=== PATIENT | female | born 1935 | race Caucasian/White ===

== ENCOUNTER → 2020-10-05 11:02 | Outpatient (BNVA) | payer MEDICARE, OTHER, SELFPAY | PROVIDERS: Visit Provider Podiatrist Foot & Ankle Surgery | DX: M79.672 Pain in left foot (principal); M19.072 Primary osteoarthritis, left ankle and foot | CPT/HCPCS: 73630 ==

== ENCOUNTER 2022-01-22 09:57 | Emergency (ER) | payer MEDICARE, OTHER, SELFPAY ==
[2022-01-22 10:03] VITALS: BP 157/80; PULSE 73; RESP 14; TEMP 36.7; O2SAT 91; BMI 33.3
--- NOTE | 2022-01-22 10:12 | CTR_ITS ---
PROCEDURE INFORMATION: Exam: CT Head Without Contrast Exam date and time: 01/22/2022 10:23 AM Age: 86 years old Clinical indication: Injury or trauma; Fall; Blunt trauma (contusions or hematomas); Weakness, facial; Additional info: L side facial droop x 2 days TECHNIQUE: Imaging protocol: Computed tomography of the head without contrast. Radiation optimization: All CT scans at this facility use at least one of these dose optimization techniques: automated exposure control; mA and/or kV adjustment per patient size (includes targeted exams where dose is matched to clinical indication); or iterative reconstruction. COMPARISON: No relevant prior studies available. RADIATION DOSE METRICS: Total DLP (mGy-cm): 1040.83 FINDINGS: Brain: There is brain parenchymal atrophy, related to the patient's age. Moderate nonspecific white matter changes are seen. There are no intracranial masses, mass effect or midline shift. There is no cerebral edema. There is no subarachnoid hemorrhage. There are no intra-or extra-axial fluid collections, intraventricular or intraparenchymal hemorrhage. No definite areas of low attenuation or browne-white matter junction obscuration seen on the noncontrast CT to suggest a subacute stroke - although the underlying white matter changes limit assessment. Cerebral ventricles: The lateral, third and fourth ventricles appear unremarkable. The suprasellar and basilar cisterns appear unremarkable. Paranasal sinuses: The visualized sinuses are unremarkable. Mastoid air cells: The visualized mastoids are unremarkable. Orbital cavities: The visualized orbits are unremarkable. Bones/joints: No definite acute osseous or skull abnormalities seen. Soft tissues: Unremarkable. Notes: If there is further clinical concern for intracranial pathology, MRI of the brain may be performed for further assessment. CT/CT head wo con* [id number] IMPRESSION: No noncontrast CT evidence of acute posttraumatic intracranial abnormality. No noncontrast CT evidence of intracranial hemorrhage, masses or definite subacute stroke.
--- NOTE | 2022-01-22 10:12 | XR_ITS ---
WS: [id number] Portable AP upright chest, 01/22/2022 Clinical Data: dyspnea/cough Comparison: None. Findings: No nodules, masses or effusions are seen. The heart is normal. The pulmonary vascularity is not increased. No pneumonia or pneumothorax is seen. The aortic arch shows calcification and tortuos ity. There is a dextroscoliosis of the thoracic spine. There is an anterior cervical disc fusion. The re is an orthopedic anchor in the left humeral head. XR/XR chest 1V portable [id number] Impression: Atherosclerosis.
--- NOTE | 2022-01-22 10:12 | ECG_ITS ---
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 Measurements Intervals [place] Rate: 71 P: 21 NE: 218 QRS: -43 QRSD: 88 T: 68 QT: 380 QTc: 415 Interpretive Statements SINUS RHYTHM WITH FIRST DEGREE AV BLOCK WITH OCCASIONAL SUPRAVENTRICULAR PREMATURE COMPLEXES LEFT AXIS DEVIATION [QRS AXIS < -30] LOW QRS VOLTAGE IN PRECORDIAL LEADS [QRS DEFLECTION < 1.0 mV IN CHEST LEADS] S1-S2-S3 PATTERN, CONSISTENT WITH PULMONARY DISEASE, RVH, OR NORMAL VARIANT ANTEROSEPTAL MYOCARDIAL INFARCTION , OF INDETERMINATE AGE [40+ ms Q WAVE IN V1-V4] INTERPRETATION BASED ON A DEFAULT AGE OF 40 YEARS No previous ECG available for comparison Electronically Signed On 01-22-2022 14:59:33 DIGITAL COMMENTATOR by Jordi Latham M.D. [email or web address]
[2022-01-22 10:55] LABS: Basophils % 0.6 %; Eosinophils # 0.3 10^3/uL (0.0-0.8); Eosinophils % 5.8 %; Hematocrit 45.5 % (37.0-47.0); Lymphocytes # 1.4 10^3/uL (0.8-4.8); Lymphocytes % 28.2 %; Mean Corpuscular HGB Conc 30.8 g/dL (30.0-36.0); Mean Corpuscular Hemoglobin 28.1 pg (28.0-34.0); Mean Corpuscular Volume 91.2 fl (81-99); Mean Platelet Volume 9.9 fL (7.4-10.4); Monocytes # 0.6 10^3/uL (0.2-0.9); Monocytes % 12.2 %; Neutrophils # 2.64 10^3/uL (1.8-7.7); Neutrophils % 52.8 %; Nucleated Red Blood Cells % 0 %; Platelet Count 224 10^3/cmm (130-400); Red Blood Count 4.99 10^6/uL (4.1-5.3); Red Cell Distribution Width 13.2 % (12.1-15.1)
[2022-01-22 11:19] LABS: Alanine Aminotransferase 65 U/L (0-33); Albumin Level 4.2 g/dL (3.5-5.2); Alkaline Phosphatase 63 U/L (35-105); Aspartate Amino Transferase 40 U/L (0-32); Blood Urea Nitrogen 14 mg/dL (8-23); Calcium 9.8 mg/dL (8.5-10.5); Carbon Dioxide 28 mmol/L (22-29); Chloride 96 mmol/L (98-107); Globulin 2.8 g/dL (1.3-4.6); Glucose 237 mg/dL (65-115); Osmolality Calculated 286 mOsm/kg (285-295); Sodium 134 mmol/L (136-145); Total Bilirubin 0.5 mg/dL (0.15-1.2)
--- NOTE | 2022-01-22 11:41 | W.ED.NEUROSD ---
HPI - Neuro Symptoms/Deficit General: Chief Complaint: Neuro Symptoms/Deficit Stated Complaint: stroke like symptoms Time Seen by Provider: 01/22/22 10:11 Source: patient Mode of arrival: ambulatory History of Present Illness: 86-year-old female presents emergency room with left-sided facial droop tingling of her difficulty swallowing for the last 2 days she has no other deficits at all. She is awake and alert she did not have any otalgia at the onset of this. She not previously had issues like this before she has had no problems with balance or gait. Just the limited findings on her face as described above. She is able to swallow normally but she has dribbling out of the left corner of her mouth when she tries to swallow liquids. The anterior part of her tongue is lost sensation as well. Onset (ago): day(s) (2) Location: left face History of same: Yes Severity: mild Quality: weak Relieving factors: none Exacerbating factors: none Context: gradual onset Associated symptoms: Deny chest pain, cough, diaphoresis, fevers/chills, headache(s), anorexia, malaise, nausea, seizures, short of breath, syncope, tingling, vertigo, vomiting or weakness Review of Systems Const: Denies: malaise or diaphoresis ENMT: Denies: throat pain, ear or mastoid pain, nasal discharge or nasal congestion Card: Denies: chest pain or syncope Resp: Denies: dyspnea, productive cough or non-productive cough GI: Denies: abdominal pain, nausea or vomiting : Denies: flank pain, difficulty voiding, dysuria, urinary frequency or urinary urgency Skin/Breast: Denies: rash or pruritus Neuro: Denies: headache(s) or vertigo NIH stroke score NIHSS: Level Of Consciousness - 1a: 0 Level Of Consciousness Questions - 1b: Both Correct Level Of Consciousness Commands - 1c: Both Correct Best Gaze - 2: Normal Visual Amaya - 3: No Visual Loss Facial Palsy - 4: Partial Paralysis Motor Arm Right - 5: No Drift Motor Arm Left - 5: No Drift Motor Leg Right - 6: No Drift Motor Leg Left - 6: No Drift Limb Ataxia - 7: Absent Sensory - 8: Normal Best Language - 9: No Aphasia Dysarthia - 10: Normal Extinction And Inattention - 11: 0 Score: Total Score: 2 Physical Exam Const: COMMON NORMALS: no acute distress GENERAL APPEARANCE: cooperative and comfortable ORIENTATION/CONSCIOUSNESS: Yes awake, Yes oriented to person, Yes oriented to place and Yes oriented to time HENMT: COMMON NORMALS: normocephalic, atraumatic, hearing grossly normal bilaterally, external ears normal, EAC's normal, TM's normal bilaterally, Normal nasal mucous membranes and turbinates present, moist oral mucous membranes and oropharynx normal HEAD & SCALP: normocephalic and atraumatic NOSE: Normal nasal mucous membranes and turbinates present EXTERNAL EAR: Yes external ears normal EXTERNAL AUDITORY CANAL: EAC's normal TYMPANIC MEMBRANE: TM's normal bilaterally Eye: COMMON NORMALS: Equal, round and reactive pupils present, EOMs intact bilaterally, conjunctivae normal and no scleral icterus CONJUNCTIVA: Yes conjunctivae normal PUPIL: Yes Equal, round and reactive pupils present Neck/C-Spine: COMMON NORMALS: full ROM, no lymphadenopathy, supple and no JVD Resp: COMMON NORMALS: normal respiratory effort, No retractions, No use of accessory muscles and clear to auscultation bilaterally AUSCULTATION: clear to auscultation bilaterally Cardio: COMMON NORMALS: no JVD, regular rate, regular rhythm and No murmurs present (Cardio) RATE: regular rate RHYTHM: regular rhythm GI: COMMON NORMALS: Soft to palpation and No hepatosplenomegaly present AUSCULTATION: Yes normoactive bowel sounds PALPATION: Yes Soft to palpation, No Tenderness to palpation present (GI), No Guarding due to palpation present (GI) and Yes No hepatosplenomegaly present Extremity: COMMON NORMALS: normal to inspection, capillary refill normal, no clubbing, cyanosis or edema, no calf tenderness and no pedal edema Neuro: SENSORIUM/ORIENTATION: Yes oriented to person, Yes oriented to place and Yes oriented to time Skin: COMMON NORMALS: no rashes or lesions noted GENERAL SKIN EXAM: no rashes or lesions noted Course Vital Signs: Vital signs: Vital Signs Temperature 98.1 F 01/22/22 12:17 Pulse Rate 73 01/22/22 12:17 Respiratory Rate 14 01/22/22 12:17 Blood Pressure 157/80 01/22/22 12:17 Pulse Oximetry 91 01/22/22 12:17 Oxygen Delivery Me thod 01/22/22 10:03 MDM - Neuro Symptoms/Deficit Medical Decision Making Patient had fall and hit her head she is on anticoagulants CT of head is negative. 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 Medical Records I reviewed the patient's medical records. Lab Data I reviewed the patient's lab results. 01/22/22 10:40 01/22/22 10:40 Radiology Impressions Chest X-Ray 01/22/22 10:12 Impression: Atherosclerosis. Head CT 01/22/22 10:12 IMPRESSION: No noncontrast CT evidence of acute posttraumatic intracranial abnormality. No noncontrast CT evidence of intracranial hemorrhage, masses or definite subacute stroke. Laboratory Results WBC 5.0 10^3/uL (4.0-10.0) 01/22/22 10:40 RBC 4.99 10^6/uL (4.1-5.3) 01/22/22 10:40 Hgb 14.0 g/dL (11.5-15.3) 01/22/22 10:40 Hct 45.5 % (37.0-47.0) 01/22/22 10:40 MCV 91.2 fl (81-99) 01/22/22 10:40 MCH 28.1 pg (28.0-34.0) 01/22/22 10:40 MCHC 30.8 g/dL (30.0-36.0) 01/22/22 10:40 RDW 13.2 % (12.1-15.1) 01/22/22 10:40 Plt Count 224 10^3/cmm (130-400) 01/22/22 10:40 MPV 9.9 fL (7.4-10.4) 01/22/22 10:40 Neut % (Auto) 52.8 % 01/22/22 10:40 Lymph % (Auto) 28.2 % 01/22/22 10:40 [place] % (Auto) 12.2 % 01/22/22 10:40 Eos % (Auto) 5.8 % 01/22/22 10:40 Baso % (Auto) 0.6 % 01/22/22 10:40 Neut # (Auto) 2.64 10^3/uL (1.8-7.7) 01/22/22 10:40 Lymph # (Auto) 1.4 10^3/uL (0.8-4.8) 01/22/22 10:40 [place] # (Auto) 0.6 10^3/uL (0.2-0.9) 01/22/22 10:40 Eos # (Auto) 0.3 10^3/uL (0.0-0.8) 01/22/22 10:40 Baso # (Auto) 0.0 10^3/uL (0.0-0.1) 01/22/22 10:40 Nucleated RBC % (auto) 0 % 01/22/22 10:40 Nucleated RBCs # 0.0 /100WBC 01/22/22 10:40 Sodium 134 mmol/L (136-145) L 01/22/22 10:40 Potassium 4.0 mmol/L (3.5-5.1) 01/22/22 10:40 Chloride 96 mmol/L (98-107) L 01/22/22 10:40 Carbon Dioxide 28 mmol/L (22-29) 01/22/22 10:40 Anion Gap 14.0 (5-19) 01/22/22 10:40 BUN 14 mg/dL (8-23) 01/22/22 10:40 Creatinine 0.5 mg/dL (0.5-0.9) 01/22/22 10:40 GFR Calculation Not Reportable 01/22/22 10:40 Glucose 237 mg/dL (65-115) H 01/22/22 10:40 Calculated Osmolality 286 mOsm/kg (285-295) 01/22/22 10:40 Calcium 9.8 mg/dL (8.5-10.5) 01/22/22 10:40 Total Bilirubin 0.5 mg/dL (0.15-1.2) 01/22/22 10:40 AST 40 U/L (0-32) H 01/22/22 10:40 ALT 65 U/L (0-33) H 01/22/22 10:40 Alkaline Phosphatase 63 U/L (35-105) 01/22/22 10:40 Total Protein 7.0 g/dL (6.6-8.7) 01/22/22 10:40 Albumin 4.2 g/dL (3.5-5.2) 01/22/22 10:40 Globulin 2.8 g/dL (1.3-4.6) 01/22/22 10:40 Discharge Plan Discharge Patient Disposition: Home Clinical Impression: Roy's palsy Condition: Stable Prescriptions: New prednisone 50 mg tablet 50 mg PO DAILY 7 Days Qty: 7 0RF No Action (DME) spectrum afo with lateral T strap See Rx Instructions .ROUTE .MEDSUPPLY Qty: 1 0RF Rx Instructions: As directed by ALBA&O atorvastatin 20 mg tablet 20 mg PO DAILY citalopram 20 mg tablet 20 mg PO DAILY fenofibrate 160 mg tablet 160 mg PO DAILY losartan 25 mg tablet 25 mg PO DAILY Pradaxa 110 mg capsule 110 mg PO BID tramadol 50 mg tablet 50 mg PO Q6H PRN (Reason: Pain) carvedilol 3.125 mg tablet 3.125 mg PO BID Rx Instructions: must administer with a meal/food trazodone 50 mg tablet 50 mg PO BEDTIME ropinirole 0.25 mg tablet 0.25 mg PO BEDTIME Discharge Orders: Discharge ED (Routine); Ordered 01/22/22 Ordered By: Zaki Story Referrals: Susie Ford FNP [Primary Care Provider] - Discharge Diet: Usual diet Discharge Activity: Increase activity as tolerated Patient Instructions: Roy Palsy (ED), Opioid Safety, Pain Management Activity Restrictions/Additional Instructions: You were seen today for Roy's palsy which is an irritation of the facial nerve. Most often this eventually resolves completely. We started you on prednisone 50 mg daily for 1 week this will sometimes improve the rate of resolution. If you have any worsening or change symptoms recheck with your primary care doctor. Coding Level of Care Code ED Supervisor [employer] for Darrell Zavaleta
[2022-01-22 12:17] VITALS: BP 157/80; PULSE 73; RESP 14; TEMP 36.7; O2SAT 91
== END 2022-01-22 12:15 | disposition home or self-care (01) ==
PROVIDERS: Emergency Provider Family Medicine; PCP Nurse Practitioner Family
DX: G51.0 Bell's palsy (principal)
CPT/HCPCS: 70450; 71045; 80053; 85025; 93005; 99285

== ENCOUNTER 2022-02-13 08:57 | Emergency (ER) | payer MEDICARE, OTHER, SELFPAY ==
[2022-02-13 09:08] VITALS: BP 157/81; PULSE 77; RESP 16; TEMP 36.9; O2SAT 92
--- NOTE | 2022-02-13 11:17 | XR_ITS ---
WS: [id number] Right shoulder, 3 views, 02/13/2022 Clinical Data: fall/pain Comparison: None. Findings: No fractures or dislocations are seen. The AC joint shows mild osteoarthritis. The adjacent right cla vicle, right scapula and ribs are normal. The soft tissues are unremarkable. There is an anterior cervical disc fusion. There are calcifications in the region of the carotid bifu rcations. 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
--- NOTE | 2022-02-13 11:17 | XR_ITS ---
WS: [id number] Right hip, 2 views, AP pelvis, 02/13/2022 Clinical Data: fall, pain; one view pelvis too please Comparison: None. Findings: No fractures or dislocations are seen. The right hip shows mild osteoarthritic change with narrowing and an acetabular lip. The soft tissues are not remarkable. The adjacent pelvis is normal. The left hip is normal. XR/XR hip RT 2-3V wo/w pel* [id number] Impression: 1. Negative for right hip fracture. 2. Mild osteoarthritis of right hip. 3. Negative pelvis.
--- NOTE | 2022-02-13 11:17 | W.ED.GENADLT ---
Documented by User: MARCOS Higgins 02/13/22 13:49 HPI - General Adult General: Chief complaint: General Medical Stated complaint: fall on , pain throughout body Time Seen by Provider: 02/13/22 10:48 Source: patient and family Mode of arrival: wheelchair Limitations: no limitations History of Present Illness: Patient is an 86-year-old female who presents to ED today for evaluation of right shoulder pain, right hip pain, left-sided neck pain. Patient states symptoms have been present following a fall that occurred roughly 01/26. She states she was reaching for an object while lying in bed and accidentally rolled out onto her right side. She states since then she has had limited range of motion of her right shoulder and right hip pain. She is able to ambulate with the help of a walker which she normally uses. Patient tells me at some point following the fall she developed a left-sided Roy's palsy. She was seen here at our facility for that. She had a CT head performed that was negative. Patient states she was placed on steroids and this is helped her symptoms quite a bit . She still has some mild left-sided mouth drooping. Patient states she is having pain in the left side of her neck. She denies any midline/cervical/bony tenderness. Patient maintains full range of motion of her neck. She denies a headache. Onset (ago): week(s) Location: neck, upper extremity and lower extremity Radiation: non-radiation Pain Consistency: constant Relieving factors: none Exacerbating factors: movement Associated symptoms: Reports no associated symptoms; Deny chest pain, confusion, dyspnea, headache(s), malaise, nausea, rash, palpitations, syncope or vomiting Treatments prior to arrival: none Review of Systems Const: Denies: fever(s), chills, body aches, fatigue or malaise Eyes: Denies: change in vision, blurry vision, blind spots, photophobia, floaters or seeing flashes Card: Denies: chest pain, palpitations, irregular heart rhythm, edema, lightheadedness, syncope or pre-syncope Resp: Denies: dyspnea GI: Denies: abdominal pain, nausea or vomiting Musc: Reports: neck pain, joint pain and limited range of motion; Denies: back pain, extremity pain, extremity swelling, joint swelling, joint redness or joint warmth Skin/Breast: Denies: rash Neuro: Denies: headache(s), numbness in extremities, weakness in extremities, sensory changes, lack of coordination, frequent falls, dizziness, vertigo, confusion, behavioral changes, difficulty communicating thoughts or seizure-like activity Physical Exam Const: COMMON NORMALS: no acute distress, patient oriented x3, no limitations, alert and well nourished GENERAL APPEARANCE: cooperative ORIENTATION/CONSCIOUSNESS: Yes awake, Yes oriented to person, Yes oriented to place and Yes oriented to time HENMT: COMMON NORMALS: normocephalic, atraumatic, hearing grossly normal bilaterally, external ears normal, EAC's normal and TM's normal bilaterally HEAD & SCALP: normal to inspection, normocephalic and atraumatic EXTERNAL EAR: Yes external ears normal EXTERNAL AUDITORY CANAL: EAC's normal TYMPANIC MEMBRANE: TM's normal bilaterally Eye: COMMON NORMALS: Equal, round and reactive pupils present and EOMs intact bilaterally GENERAL EYE: appearance normal, both eyes and all related structures and normal light reflex ALIGNMENT: Yes alignment normal PUPIL: Yes Equal, round and reactive pupils present DIRECT OPHTHALMOSCOPY: Yes normal light reflex Neck/C-Spine: COMMON NORMALS: full ROM, no lymphadenopathy, supple, no meningeal signs, no JVD, Thyroid normal and No carotid bruits GENERAL: Yes normal visual inspection THYROID: Thyroid normal CERVICAL SPINE: Yes cervical ROM normal, No Cervical spine tenderness and No Paracervical muscle tenderness Resp: COMMON NORMALS: normal respiratory effort and clear to auscultation bilaterally AUSCULTATION: clear to auscultation bilaterally Cardio: COMMON NORMALS: no JVD, regular rate and regular rhythm RATE: regular rate RHYTHM: regular rhythm Back/Pelvis: COMMON NORMALS: thoracic and lumbar spine normal to inspection, no thoracic nor lumbar tenderness, thoraco-lumbar ROM normal and straight leg raise negative bilaterally PELVIS: Yes buttocks normal SACROILIAC JOINTS: Yes SI joint(s) abnormal (TTP to R) SACRUM: no tenderness COCCYX: no tenderness Extremity: COMMON NORMALS: capillary refill normal, no joint enlargement, no clubbing, cyanosis or edema, no calf tenderness and no pedal edema GENERAL: Yes normal exam except as noted RIGHT UPPER EXTREMITY: Yes shoulder joint (patient can flex/abduct shoulder to about 90 deg; full passive ROM) Right shoulder: Yes Right shoulder joint neurovascular exam (normal) RIGHT LOWER EXTREMITY: Yes hip joint (TTP anteriolateral R hip; femoral pulses normal; full passive ROM) Right hip: Yes ROM (pain with active flexion; normal IR/ER ) and Yes neurovascular exam (normal) Neuro: ZITA COMA SCALE: document GCS findings [place] coma scale eye opening: Spontaneous [place] coma scale verbal response: Orientated Zita coma scale motor response: Obey commands [place] coma scale total score: 15 COMMON NORMALS: patient oriented x3 SENSORIUM/ORIENTATION: Yes alert, Yes oriented to person, Yes oriented to place and Yes oriented to time MENINGEAL SIGNS: Yes no meningeal signs CRANIAL NERVES: Yes CN normal except as noted and Yes CN VII (facial) Laterality: left (states most of her symptoms have resolved/improved since last visit) CN VII left: asymmetrical smile COORDINATION/BALANCE: [id number] test normal MOTOR EXAM: 5/5 motor strength present throughout COORDINATION: [id number] test normal Skin: COMMON NORMALS: no rashes or lesions noted GENERAL SKIN EXAM: no rashes or lesions noted Course Vital Signs: Vital signs: Vital Signs Temperature 98.4 F 02/13/22 09:08 Pulse Rate 69 02/13/22 12:35 Respiratory Rate 14 02/13/22 12:35 Blood Pressure 147/70 02/13/22 12:35 Pulse Oximetry 98 02/13/22 12:35 Oxygen Delivery Me thod 02/13/22 12:35 [facility] - General Adult Medical Decision Making XR of her right shoulder and right hip were negative apart from chronic osteoarthritis. I do not appreciate any abnormalities on physical exam regarding her left neck. She has no carotid bruits. She maintains full range of motion. She does not have any cervical bony tenderness. I think the likelihood of any type of dissection to be extremely low given timeline/presentation. Patient has no headache, no Bee syndrome noted on physical exam, she has no cranial or cervical neuropathy apart from her facial nerve paralysis/bells palsy that has improved after steroid use. She does not complain of pulsatile tinnitus, vertigo/dizziness or other stroke like symptoms. Discussed with Dr. Story who agrees with assessment/plan for patient. She has a follow-up appointment with her PCP Dr. Pendleton next week. Return ED precautions given. Lab Data Radiology Impressions Hip/Pelvis X-Ray 02/13/22 11:17 Impression: 1. Negative for right hip fracture. 2. Mild osteoarthritis of right hip. 3. Negative pelvis. Shoulder X-Ray 02/13/22 11:17 Impression: Mild osteoarthritis of the right AC joint. Discharge Plan Discharge Patient Disposition: Home Clinical Impression: Roy's palsy Contusion of right shoulder Qualifiers: Encounter type: initial encounter Qualified Code(s): S40.011A - Contusion of right shoulder, initial encounter Contusion of right hip Qualifiers: Encounter type: initial encounter Qualified Code(s): S70.01XA - Contusion of right hip, initial encounter Fall Qualifiers: Encounter type: initial encounter Qualified Code(s): W19.XXXA - Unspecified fall, initial encounter Condition: Stable Prescriptions: No Action (DME) spectrum afo with lateral T strap See Rx Instructions .ROUTE .MEDSUPPLY Qty: 1 0RF Rx Instructions: As directed by ALBA&O atorvastatin 20 mg tablet 20 mg PO DAILY citalopram 20 mg tablet 20 mg PO DAILY fenofibrate 160 mg tablet 160 mg PO DAILY losartan 25 mg tablet 25 mg PO DAILY Pradaxa 110 mg capsule 110 mg PO BID tramadol 50 mg tablet 50 mg PO Q6H PRN (Reason: Pain) carvedilol 3.125 mg tablet 3.125 mg PO BID Rx Instructions: must administer with a meal/food trazodone 50 mg tablet 50 mg PO BEDTIME ropinirole 0.25 mg tablet 0.25 mg PO BEDTIME Discharge Orders: Discharge ED (Routine); Ordered 02/13/22 Ordered By: Maryellen Rowan Referrals: Savage Pendleton DO [Primary Care Provider] - Coding Level of Care Code ED Novelty Twister Tender for Chg Fwd Exam Comprehensive Documented by User: Zaki Story DO 02/13/22 14:33 HPI - General Adult General: Chief complaint: General Medical Stated complaint: fall on , pain throughout body Time Seen by Provider: 02/13/22 10:48 Physical Exam Neuro: ZITA COMA SCALE: document GCS findings [place] coma scale total score: 15 Course Vital Signs: Vital signs: Vital Signs Temperature 98.4 F 02/13/22 09:08 Pulse Rate 69 02/13/22 12:35 Respiratory Rate 14 02/13/22 12:35 Blood Pressure 147/70 02/13/22 12:35 Pulse Oximetry 98 02/13/22 12:35 Oxygen Delivery Me thod 02/13/22 12:35 MDM - General Adult Medical Decision Making XR of her right shoulder and right hip were negative apart from chronic osteoarthritis. I do not appreciate any abnormalities on physical exam regarding her left neck. She has no carotid bruits. She maintains full range of motion. She does not have any cervical bony tenderness. I think the likelihood of any type of dissection to be extremely low given timeline/presentation. Patient has no headache, no Bee syndrome noted on physical exam, she has no cranial or cervical neuropathy apart from her facial nerve paralysis/bells palsy that has improved after steroid use. She does not complain of pulsatile tinnitus, vertigo/dizziness or other stroke like symptoms. Discussed with Dr. Story who agrees with assessment/plan for patient. She has a follow-up appointment with her PCP Dr. Pendleton next week. Return ED precautions given. Chart reviewed and patient discussed with midlevel. Agree with assessment and plan. Lab Data Radiology Impressions Hip/Pelvis X-Ray 02/13/22 11:17 Impression: 1. Negative for right hip fracture. 2. Mild osteoarthritis of right hip. 3. Negative pelvis. Shoulder X-Ray 02/13/22 11:17 Impression: Mild osteoarthritis of the right AC joint. Discharge Plan Discharge Patient Disposition: Home Clinical Impression: Roy's palsy Contusion of right shoulder Qualifiers: Encounter type: initial encounter Qualified Code(s): S40.011A - Contusion of right shoulder, initial encounter Contusion of right hip Qualifiers: Encounter type: initial encounter Qualified Code(s): S70.01XA - Contusion of right hip, initial encounter Fall Qualifiers: Encounter type: initial encounter Qualified Code(s): W19.XXXA - Unspecified fall, initial encounter Condition: Stable Prescriptions: No Action (DME) spectrum afo with lateral T strap See Rx Instructions .ROUTE .MEDSUPPLY Qty: 1 0RF Rx Instructions: As directed by ALBA&O atorvastatin 20 mg tablet 20 mg PO DAILY citalopram 20 mg tablet 20 mg PO DAILY fenofibrate 160 mg tablet 160 mg PO DAILY losartan 25 mg tablet 25 mg PO DAILY Pradaxa 110 mg capsule 110 mg PO BID tramadol 50 mg tablet 50 mg PO Q6H PRN (Reason: Pain) carvedilol 3.125 mg tablet 3.125 mg PO BID Rx Instructions: must administer with a meal/food trazodone 50 mg tablet 50 mg PO BEDTIME ropinirole 0.25 mg tablet 0.25 mg PO BEDTIME Discharge Orders: Discharge ED (Routine); Ordered 02/13/22 Ordered By: Maryellen Rowan Referrals: Savage Pendleton DO [Primary Care Provider] - Coding Level of Care Code ED Novelty Twister Tender for Chg Fwd Exam Comprehensive
[2022-02-13 12:35] VITALS: BP 147/70; PULSE 69; RESP 14; O2SAT 98
== END 2022-02-13 12:43 | disposition home or self-care (01) ==
PROVIDERS: Emergency Provider Physician Assistant; PCP Electrodiagnostic Medicine
DX: S40.011A Contusion of right shoulder, initial encounter (principal); S70.01XA Contusion of right hip, initial encounter; G51.0 Bell's palsy; W06.XXXA Fall from bed, initial encounter
CPT/HCPCS: 73030; 73502; 99283

== ENCOUNTER → 2022-10-04 13:41 | Outpatient (BNVA) | payer MEDICARE, OTHER, SELFPAY | PROVIDERS: PCP Electrodiagnostic Medicine; Referring Provider Electrodiagnostic Medicine; Visit Provider Student in an Organized Health Care Education/Training Program | DX: M19.011 Primary osteoarthritis, right shoulder; M75.41 Impingement syndrome of right shoulder | CPT/HCPCS: 20610; 73030; 99204; J3301 ==

== ENCOUNTER → 2023-01-22 13:50 | Outpatient (BNVA) | payer MEDICARE, OTHER, SELFPAY | PROVIDERS: PCP Electrodiagnostic Medicine; Visit Provider Student in an Organized Health Care Education/Training Program | DX: M75.41 Impingement syndrome of right shoulder (principal); M75.101 Unspecified rotator cuff tear or rupture of right shoulder, not specified as traumatic; M19.011 Primary osteoarthritis, right shoulder | CPT/HCPCS: 99213 ==

== ENCOUNTER 2023-01-24 06:11 | Emergency (ER) | payer MEDICARE, OTHER, SELFPAY ==
--- NOTE | 2023-01-24 06:14 | ED_ITS ---
HPI - Fall 2 General: Chief Complaint: Fall Stated Complaint: fall Time Seen by Provider: 01/24/23 06:13 Source: patient Mode of arrival: EMS History of Present Illness: 87-year-old female presents emergency ro om after falling at home. She arrived via EMS she had gotten up to go take her dog out and stumbled and fell she landed on her buttocks had a difficult time getting up although is able to get a hold of family and was able to stand she was down around an hour and 1/2 to 2 hours. She not strike her head she not lose consciousness denies chest or abdominal pain her only pain is in her tailbone and lower back. MD complaint: fall Associated symptoms-after fall: Denies abdominal pain, chest pain or neck pain Review of Systems 2 Const: Denies: fever(s) or chills Card: Denies: chest pain Resp: Denies: dyspnea GI: Denies: abdominal pain : Denies: dysuria, urinary frequency or urinary urgency Musc: Denies: neck pain or back pain Skin/Breast: Denies: rash PFSH ED 2 PFSH: Medical History (Updated 01/24/23 @ 08:58 by Zaki Story DO) Hyperlipidemia, unspecified Gastro-esophageal reflux disease without esophagitis Diverticulitis Hypertension Atrial fibrillation Surgical History (Updated 01/24/23 @ 06:15 by Zaki Story DO) H/O: hysterectomy Hx of cholecystectomy H/O shoulder surgery Social History Smoking and tobacco/nicotine status: former use of tobacco/nicotine Alcohol intake: current Alcohol intake frequency: holidays/special occasions only Physical Exam 2 Const: COMMON NORMALS: no acute distress GENERAL APPEARANCE: cooperative and comfortable ORIENTATION/CONSCIOUSNESS: Yes awake, Yes oriented to person, Yes oriented to place and Yes oriented to time HENMT: COMMON NORMALS: normocephalic, atraumatic and hearing grossly normal bilaterally HEAD & SCALP: normocephalic and atraumatic Resp: COMMON NORMALS: normal respiratory effort, No retractions, No use of accessory muscles and clear to auscultation bilaterally AUSCULTATION: clear to auscultation bilaterally Cardio: COMMON NORMALS: regular rate, regular rhythm and No murmurs present (Cardio) RATE: regular rate RHYTHM: regular rhythm GI: COMMON NORMALS: Soft to palpation and No hepatosplenomegaly present A USCULTATION: Yes normoactive bowel sounds PALPATION: Yes Soft to palpation, No Tenderness to palpation present (GI), No Guarding due to palpation present (GI) and Yes No hepatosplenomegaly present Extremity: COMMON NORMALS: normal to inspection, capillary refill normal, no clubbing, cyanosis or edema, no calf tenderness and no pedal edema Neuro: SENSORIUM/ORIENTATION: Yes oriented to person, Yes oriented to place and Yes oriented to time Skin: COMMON NORMALS: no rashes or lesions noted GENERAL SKIN EXAM: no rashes or lesions noted Course 2 Vital Signs: Vital signs: Vital Signs Temperature 98.9 F 01/24/23 06:16 Pulse Rate 84 01/24/23 06:16 Respiratory Rate 18 01/24/23 06:16 Blood Pressure 166/78 01/24/23 06:16 Pulse Oximetry 92 01/24/23 06:16 MDM - Fall Medical Decision Making Labs and imaging reviewed no acute finding. Will discharge patient home follow- up as necessary continue with your current medications return if is further problems. Medical Records I reviewed the patient's medical records. Lab Data I reviewed the patient's lab results. 01/24/23 06:33 01/24/23 06:33 Laboratory Results WBC 11.90 10^3/uL (3.29-11.43) H 01/24/23 06:33 RBC 5.02 10^6/uL (3.85-5.65) 01/24/23 06:33 Hgb 14.20 g/dL (11.27-16.99) 01/24/23 06:33 Hct 45.7 % (36-47) 01/24/23 06:33 MCV 91.0 fl (85-98) 01/24/23 06:33 MCH 28.3 pg (27-33) 01/24/23 06:33 MCHC 31.1 g/dL (30-55) 01/24/23 06:33 RDW 14.1 % (12.1-15.1) 01/24/23 06:33 Plt Count 250 10^3/cmm (157-399) 01/24/23 06:33 MPV 9.8 fL (7.4-10.4) 01/24/23 06:33 Neut % (Auto) 86.3 % 01/24/23 06:33 Lymph % (Auto) 4.5 % 01/24/23 06:33 [place] % (Auto) 6.9 % 01/24/23 06:33 Eos % (Auto) 1.4 % 01/24/23 06:33 Baso % (Auto) 0.5 % 01/24/23 06:33 Neut # (Auto) 10.27 10^3/uL (1.8-7.7) H 01/24/23 06:33 Lymph # (Auto) 0.5 10^3/uL (0.8-4.8) L 01/24/23 06:33 [place] # (Auto) 0.8 10^3/uL (0.2-0.9) 01/24/23 06:33 Eos # (Auto) 0.2 10^3/uL (0.0-0.8) 01/24/23 06:33 Baso # (Auto) 0.1 10^3/uL (0.0-0.1) 01/24/23 06:33 Nucleated RBC % (auto) 0 % 01/24/23 06:33 Nucleated RBCs # 0.0 /100WBC 01/24/23 06:33 Sodium 139 mmol/L (136-145) 01/24/23 06:33 Potassium 3.9 mmol/L (3.5-5.1) 01/24/23 06:33 Chloride 99 mmol/L (98-107) 01/24/23 06:33 Carbon Dioxide 28 mmol/L (22-29) 01/24/23 06:33 Anion Gap 15.9 (5-19) 01/24/23 06:33 BUN 15 mg/dL (8-23) 01/24/23 06:33 Creatinine 0.7 mg/dL (0.5-0.9) 01/24/23 06:33 GFR Calculation Not Reportable 01/24/23 06:33 Glucose 159 mg/dL (65-115) H 01/24/23 06:33 Calculated Osmolality 292 mOsm/kg (285-295) 01/24/23 06:33 Calcium 10.4 mg/dL (8.5-10.5) 01/24/23 06:33 Total Bilirubin 0.6 mg/dL (0.15-1.2) 01/24/23 06:33 AST 29 U/L (0-32) 01/24/23 06:33 ALT 32 U/L (0-33) 01/24/23 06:33 Alkaline Phosphatase 85 U/L (35-105) 01/24/23 06:33 Total Protein 7.9 g/dL (6.6-8.7) 01/24/23 06:33 Albumin 4.9 g/dL (3.5-5.2) 01/24/23 06:33 Globulin 3.0 g/dL (1.3-4.6) 01/24/23 06:33 All radiology interpretation(s) finalized by discharge Discharge Plan Discharge Patient Disposition: Home Clinical Impression: Fall Prescriptions: No Action (DME) spectrum afo with lateral T strap See Rx Instructions .ROUTE .MEDSUPPLY Qty: 1 0RF Rx Instructions: As directed by ALBA&O atorvastatin 20 mg tablet 20 mg PO DAILY citalopram 20 mg tablet 20 mg PO DAILY fenofibrate 160 mg tablet 160 mg PO DAILY losartan 25 mg tablet 25 mg PO DAILY tramadol 50 mg tablet 50 mg PO Q6H PRN (Reason: Pain) carvedilol 3.125 mg tablet 3.125 mg PO BID Rx Instructions: must administer with a meal/food ropinirole 1 mg Tablet 1 mg PO DAILY glipizide 5 mg Tablet Extended Release 24hr 5 mg PO DAILY Aspir-81 81 mg Tablet,Delayed Release (Dr/Ec) 81 mg PO DAILY meloxicam 7.5 mg Tablet 7.5 mg PO DAILY Women's 50 Plus Multivitamin 400 mcg-500 mg calcium-20 mcg Tablet 1 tab PO DAILY trazodone 50 mg tablet 50 mg PO BEDTIME Discharge Orders: Discharge ED (Routine); Ordered 01/24/23 Ordered By: Zaki Story Referrals: Savage Pendleton, DO [Primary Care Provider] - Discharge Diet: Usual diet Discharge Activity: Increase activity as tolerated Patient Instructions: Opioid Safety, Pain Management Activity Restrictions/Additional Instructions: Thank you for choosing [facility] for your healthcare needs today. Please realize this is an emergency room and that we are providing you with a medical screening exam and this may not be complete and all inclusive of all the testing and or work up that you may need to determine your ailment or severity of your illness. It is very important that you follow up as instructed or that you return to the Emergency Department should you have concerns or if your condition changes or worsens in any way. You are seen after a fall x-rays are unremarkable. Follow-up with your primary care doctor as needed Coding Level of Care Code ED [facility]eman for Darrell Zavaleta
[2023-01-24 06:16] VITALS: BP 166/78; PULSE 84; RESP 18; TEMP 37.2; O2SAT 92
--- NOTE | 2023-01-24 06:30 | XR_ITS ---
WS: [id number] Exam: XR sacrum coccyx min 2V [id number] Date/Time of Exam: 01/24/2023 6:30 AM Reason For Exam: fall No sacrococcygeal fracture or dislocation. No sign of bone destruction. Soft tissues are unremarkable . DJD of the SI joints. IMPRESSION: 1. No acute fracture.
--- NOTE | 2023-01-24 06:30 | XR_ITS ---
WS: [id number] Lumbar spine, 3 views, 01/24/2023 Clinical Data: fall Comparison: None. Findings: No compression fractures or subluxation is seen. There is degenerative disc narrowing at all levels. There is a levoscoliosis with osteoarthritis of all the lumbar vertebral bodies. The transverse proce sses and SI joints are normal. There are clips in the right upper quadrant from a cholecystectomy. There is calcification of the wal l of the abdominal aorta but no aneurysm. Impression: 1. Levoscoliosis with osteoarthritis of all the lumbar vertebral bodies. 2. Degenerative disc narrowing at all lumbar levels.
[2023-01-24 06:49] LABS: Basophils # 0.1 10^3/uL (0.0-0.1); Basophils % 0.5 %; Eosinophils # 0.2 10^3/uL (0.0-0.8); Eosinophils % 1.4 %; Hematocrit 45.7 % (36-47); Lymphocytes # 0.5 10^3/uL (0.8-4.8); Lymphocytes % 4.5 %; Mean Corpuscular HGB Conc 31.1 g/dL (30-55); Mean Corpuscular Hemoglobin 28.3 pg (27-33); Mean Platelet Volume 9.8 fL (7.4-10.4); Monocytes # 0.8 10^3/uL (0.2-0.9); Monocytes % 6.9 %; Neutrophils # 10.27 10^3/uL (1.8-7.7); Neutrophils % 86.3 %; Nucleated Red Blood Cells % 0 %; Platelet Count 250 10^3/cmm (157-399); Red Blood Count 5.02 10^6/uL (3.85-5.65); Red Cell Distribution Width 14.1 % (12.1-15.1)
[2023-01-24 06:57] LABS: Alanine Aminotransferase 32 U/L (0-33); Albumin Level 4.9 g/dL (3.5-5.2); Alkaline Phosphatase 85 U/L (35-105); Anion Gap 15.9 (5-19); Aspartate Amino Transferase 29 U/L (0-32); Blood Urea Nitrogen 15 mg/dL (8-23); Calcium 10.4 mg/dL (8.5-10.5); Carbon Dioxide 28 mmol/L (22-29); Chloride 99 mmol/L (98-107); Glucose 159 mg/dL (65-115); Osmolality Calculated 292 mOsm/kg (285-295); Potassium 3.9 mmol/L (3.5-5.1); Sodium 139 mmol/L (136-145); Total Bilirubin 0.6 mg/dL (0.15-1.2); Total Protein 7.9 g/dL (6.6-8.7)
--- NOTE | 2023-01-24 08:01 | XR_ITS ---
WS: [id number] Exam: XR shoulder RT min 2V* [id number] Date/Time of Exam: 01/24/2023 8:06 AM Reason For Exam: pain Comparison 10/04/2022. No fracture or dislocation. Degenerative changes of the glenohumeral joint and AC joint. High riding humeral head probably indicates longstanding rotator cuff tear. Metallic suture overlies the scapula. Hardware in the lower C-spine. IMPRESSION1. Degenerative changes. No fracture or dislocation.
== END 2023-01-24 09:12 | disposition home or self-care (01) ==
PROVIDERS: Emergency Provider Family Medicine; PCP Electrodiagnostic Medicine
DX: M54.50 Low back pain, unspecified (principal); Z79.82 Long term (current) use of aspirin; Z79.84 Long term (current) use of oral hypoglycemic drugs; W01.0XXA Fall on same level from slipping, tripping and stumbling without subsequent striking against object, initial encounter; E78.5 Hyperlipidemia, unspecified; I10 Essential (primary) hypertension; Z87.891 Personal history of nicotine dependence
CPT/HCPCS: 72100; 72220; 73030; 80053; 85025; 99284

== ENCOUNTER 2023-02-13 13:24 | Outpatient (CLI) | payer MEDICARE, OTHER, SELFPAY ==
--- NOTE | 2023-02-13 13:45 | MR_ITS ---
WS: [id number] MRI RIGHT SHOULDER NONCONTRAST TECHNIQUE: Sagittal T2, coronal T1, T2 and proton density imaging. Axial gradient PDE imaging. CLINICAL INFORMATION: rule out rotator cuff tear COMPARISON: None. FINDINGS: Advanced arthritis AC joint with fluid and edema. Mild downsloping acromion. Marked narrowing of the subacromial space. Loss of the subacromial space with high-grade complete tears of the supraspinatus and infraspinatus with tendon retraction and atrophy. Teres minor appears intact. Tendinopathy involving subscapularis appears intact. Biceps tendon intac t within the bicipital groove. Tendinopathy distal biceps tendon in the bicipital groove. Intra-artic ular biceps tendon appears intact. Degenerative fraying of the glenoid labrum. Moderate to advanced a rthritis glenohumeral articulation. IMPRESSION: 1. 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 2. Teres minor and subscapularis appear intact. 3. Advanced arthritis of the AC joint with marked narrowing of the subacromial space. 4. Biceps brachii tendon and intra-articular biceps tendon appear intact. 5. Small joint effusion.
== END 2023-02-13 13:25 | disposition home or self-care (01) ==
LOC: RAD 13:25
PROVIDERS: PCP Electrodiagnostic Medicine; Visit Provider Student in an Organized Health Care Education/Training Program
DX: M75.121 Complete rotator cuff tear or rupture of right shoulder, not specified as traumatic (principal); M75.41 Impingement syndrome of right shoulder; M19.011 Primary osteoarthritis, right shoulder
CPT/HCPCS: 73221

== ENCOUNTER → 2023-03-12 08:44 | Outpatient (BNVA) | payer MEDICARE, OTHER, SELFPAY | PROVIDERS: PCP Electrodiagnostic Medicine; Visit Provider Student in an Organized Health Care Education/Training Program | DX: M75.101 Unspecified rotator cuff tear or rupture of right shoulder, not specified as traumatic (principal); M75.41 Impingement syndrome of right shoulder; M19.011 Primary osteoarthritis, right shoulder | CPT/HCPCS: 99214 ==

== ENCOUNTER 2023-04-10 09:01 | Day surgery (SDC) | payer MEDICARE, OTHER, SELFPAY ==
[2023-04-10] VITALS (12 sets, daily range): BP systolic 129–178; BP diastolic 67–102; PULSE 71–80; RESP 12–19; TEMP 36.1–36.3; O2SAT 91–98; BMI 30.7
--- NOTE | 2023-04-10 09:57 | ANES.PREANE2 ---
Pre-Anesthetic Assessment Height/Weight: Height 1.65 m Weight 83.915 kg Temp Pulse Resp BP Pulse Ox O2 Del Method 97.4 F L 71 18 171/82 94 Room Air 04/10/23 09:27 04/10/23 09:27 04/10/23 09:27 04/10/23 09:27 04/10/23 09:27 04/10/23 09:36 Operation Date: 04/10/23 10:45 Proposed Procedures p Shoulder Arthroscopy(Right) - Medhat Beauregard, DO s Subacromial Decompression(Right) - Medhat Beauregard, DO s AC Joint Resection(Right) - Medhat Beauregard, DO s Subacromial Ballon Spacer(Right) - Medhat Beauregard, DO s Rotator Cuff Repair - Arthroscopy(Right) - Medhat John, DO Familial anesthetic complications: none Was Beta Sherif taken within 24 hours: Yes Was Clonidine taken within 24 hours: N/A Last intake: Intake Last Liquid Date 04/09/23 Last Liquid Time 21:00 Last Solid Date 04/09/23 Last Solid Time 18:00 Social No alcohol and No tobacco Exam alert, oriented x 3 and clear to auscultation bilaterally Airway Submandibular: within normal limits Cervical ROM: within normal limits Mallampati: Class II Dentition: chipped CV/HEM Atrial Fibrillation and Hypertension GI Gastroesophageal Reflux Disease Metabolic Diabetes Mellitus and Morbid Obesity Anesthetic Plan ASA status: 3 Anesthesia: General and Regional (specify below) (right interscalene blk) Medications/Allergies Home Medications Medication Instructions Recorded Confirmed Last Taken Type atorvastatin 20 mg tablet 20 mg PO DAILY 10/05/20 04/09/23 04/09/23 History carvedilol 3.125 mg tablet 3.125 mg PO BID 10/05/20 04/09/23 04/10/23 History citalopram 20 mg tablet 20 mg PO DAILY 10/05/20 04/09/23 04/09/23 History fenofibrate 160 mg tablet 160 mg PO DAILY 10/05/20 04/09/23 04/09/23 History losartan 25 mg tablet 25 mg PO DAILY 10/05/20 04/09/23 04/09/23 History spectrum afo with lateral T strap #1 ea 10/05/20 03/12/23 Unknown Rx tramadol 50 mg tablet 50 mg PO Q6H PRN Pain 10/05/20 04/09/23 Unknown History trazodone 50 mg tablet 50 mg PO BEDTIME 01/22/22 04/09/23 04/08/23 History aspirin 81 mg tablet,delayed 81 mg PO DAILY 01/24/23 04/09/23 04/09/23 History release glipizide 5 mg tablet, extended 5 mg PO DAILY 01/24/23 04/09/23 04/09/23 History release 24 hr skyikrxs-koi-ptykh ac 400 1 tab PO DAILY 01/24/23 04/09/23 04/09/23 History mcg-calcium carb 500 mg-vit K1 20 mcg tablet (Women's 50 Plus Multivitamin) ropinirole 1 mg tablet 1 mg PO DAILY 01/24/23 04/09/23 04/09/23 History Allergies Allergy/AdvReac Type Severity Reaction Status Date / Time codeine Allergy Mild Rash Verified 04/09/23 11:11 [facility] Anesthesia Medical History Hyperlipidemia, unspecified Gastro-esophageal reflux disease without esophagitis Diverticulitis Hypertension Atrial fibrillation Surgical History H/O: hysterectomy Hx of cholecystectomy H/O shoulder surgery Social History Smoking and tobacco/nicotine status: former use of tobacco/nicotine Alcohol intake: current Alcohol intake frequency: holidays/special occasions only Data Anesthesia Cardiac Studies: No Data to Display
[2023-04-10] MEDS: acetaminophen 1,000 MG/100 ML PIGGYBACK 400 MG IV (10:05)
[2023-04-10] MEDS: scopolamine 1.5 Patch 1 PATCH TRANSDERMA (10:05)
[2023-04-10] MEDS: ketorolac 30 mg/mL INJ IVP (10:06)
[2023-04-10 10:09] LABS: Glucose Point of Care 113 mg/dL (70-110)
--- NOTE | 2023-04-10 10:22 | W.PM.OPSUD ---
Surgery/Procedure H&P Update DATE OF PROCEDURE: April 10, 2023 DATE H&P PERFORMED: 03/12/23 H&P UPDATE INFORMATION: I have reviewed H&P completed within last 30 days, I have examined patient prior to procedure and No changes to prior documentation PREOP DIAGNOSIS: Right shoulder massive rotator cuff tear, AC joint arthritis, subacromial i PRIMARY INDICATION FOR PROCEDURE: Right shoulder massive rotator cuff tear, AC joint arthritis, subacromial impingement, biceps tendinitis PLANNED PROCEDURE: Operation Date: 04/10/23 10:45 Proposed Procedures p Shoulder Arthroscopy(Right) - Medhat Lopez, DO s Subacromial Decompression(Right) - Medhat Lopez, DO s AC Joint Resection(Right) - Medhat Lopez, DO s Subacromial Ballon Spacer(Right) - Medhat Lopez, DO s Rotator Cuff Repair - Arthroscopy(Right) - Medhat Lopez, DO
--- NOTE | 2023-04-10 10:31 | ECG_ITS ---
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 Measurements Intervals [place] Rate: 64 P: -63 DC: 208 QRS: -41 QRSD: 101 T: 62 QT: 425 QTc: 441 Interpretive Statements SINUS RHYTHM WITH MARKED SINUS ARRHYTHMIA LEFT AXIS DEVIATION [QRS AXIS < -30] INCOMPLETE RIGHT BUNDLE BRANCH BLOCK [90+ ms QRS DURATION, TERMINAL R IN V1/V2, 40+ ms S IN I/aVL/V4/V5/V6] POSSIBLE ANTERIOR MYOCARDIAL INFARCTION , OF INDETERMINATE AGE [30 ms Q WAVE IN V3/V4, OR R < 0.2 mV IN V4] Compared to ECG 01/22/2022 10:19:50 Incomplete right bundle-branch block now present First degree AV block no longer present Right ventricular hypertrophy no longer present Myocardial infarct finding still present Electronically Signed On 04-10-2023 12:09:44 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 [id number]
[2023-04-10] MEDS: sodium chloride 0.9% 1,000 ML 30 ML IV (10:37)
[2023-04-10] MEDS: ceFAZolin 2,000 MG in sodium chloride 0.9% (plus) 50 ML 100 MG IV (10:54)
--- NOTE | 2023-04-10 10:55 | ANES.PROC ---
Anesthesia Procedures Procedure/Date: 04/10/23 Nerve Block ^: Nerve Block 1: Main Anesthesia: general anesthesia Time Out Performed: Yes Consent: requested by attending/covering physician, from patient, risks and benefits reviewed and patient agrees to proceed Nerve block location: interscalene (right) Anesthesia monitors applied: pulse oximetry, EKG, BP cuff and oxygen Nerve block position: semi sitting Anesthetic Used: ropivicaine 0.5% Amount of anesthesia used (mL): 30 Ultrasound used to: recognize landmarks and visualize and ID brachial plexus Nerve Stimulator Used?: No Interscalene/Femoral BLK: 2 stimuplex 22 g needle used for position and inplane approach Injection: neg aspiration of heme Patient Tolerated Procedure: well Complications: none
[2023-04-10 11:07] LABS: Blood Urea Nitrogen 17 mg/dL (8-23); Carbon Dioxide 29 mmol/L (22-29); Chloride 101 mmol/L (98-107); Creatinine Clr Calc Pharmacy 55.0011; Glucose 106 mg/dL (65-115); Osmolality Calculated 294 mOsm/kg (285-295); Sodium 141 mmol/L (136-145)
--- NOTE | 2023-04-10 12:51 | P.BOP_ITS ---
Date of Procedure: [April 10, 2023] Surgeon: [Dr. Lopez DO] Marine Engine Machinist(s): [Tima Lopez PA-C] Procedure(s) performed: [Right shoulder diagnostic and surgical arthroscopy Subacromial decompression Glenohumeral joint chondroplasty Biceps tenotomy Labral debridement Subacromial debridement AC joint resection Subacromial balloon spacer] Findings of the procedure(s): [Right shoulder labral tear, biceps tendinitis, glenohumeral joint chondromalacia, subacromial impingement, large rotator cuff tear] Estimated blood loss: [10 ml] Specimen(s) removed: [n/a] Post-operative diagnosis: [Right shoulder labral tear, biceps tendinitis, glenohumeral joint chondromalacia, subacromial impingement, large rotator cuff tear]
--- NOTE | 2023-04-10 12:56 | PM.PACU ---
PACU note Narrative: Patient is a 87-year-old female just underwent a right shoulder arthroscopy. Patient transferred to PACU in stable condition. Pain is well controlled. shoulder Dressing on , dry and in place. Patient's operative arm is in a shoulder immobilizer. Patient is awake and alert and able to respond to my questions accordingly. Patient's fingers are warm with good perfusion. Normal cap refill under 2 seconds. Unable to assess further range of motion in arm due to sling. Unable to assess sensation due to residual localized anesthetic. Exam: awake Disposition: discharged
--- NOTE | 2023-04-10 15:19 | ANE.PACU2 ---
Inpatient post-anesthesia follow up: Airway intact: Yes Vital signs: Temperature 97.3 F Pulse Rate 72 Respiratory Rate 17 Blood Pressure 175/68 Pulse Oximetry 91 Oxygen Delivery Me thod Room Air Oxygen Flow Rate 3 Fraction of Inspir ed Oxygen Hydration adequate: Yes Nausea and vomiting: No Pain level: 1 Mental status: Baseline
--- NOTE | 2023-04-10 15:59 | P.OP_ITS ---
Operative Report Date of procedure: April 10, 2023 Surgeon: Medhat Lopez DO Assistant Men'S Lacrosse Coach: Tima Lopez PA-C: PA was necessary for assistance in this case with shoulder positioning to execute the procedure, assistance with instrumentation, as well as implant fixation when necessary, assist with wound closure and dressing application. Procedure: Surgeon: Medhat Lopez DO Assistant Men'S Lacrosse Coach: Tima Lopez PA-C: THEODOREC was necessary for assistance in this case for assistance in holding shoulder positioning as well as assistance with instrumentation and passing as well as to assist with wound closure. Procedure: Preoperative diagnosis: Right shoulder pain Right shoulder massive rotator cuff tear Right shoulder AC joint arthritis Right shoulder subacromial impingement Right shoulder biceps tendinitis Post-op diagnosis:? Right?shoulder massive rotator cuff tear (nonrepairable) Right?shoulder?biceps tendon tear Right shoulder labral tearing Right shoulder glenohumeral joint arthritis Right shoulder subscapularis small fraying/partial tear Right?shoulder?AC joint arthritis Right?shoulder?subacromial bursitis/impingement Procedure done: Right?shoulder?diagnostic and surgical arthroscopy biceps tenotomy Right?shoulder?diagnostic and surgical arthroscopy labral debridement Right shoulder diagnostic and surgical arthroscopy with glenohumeral joint chondroplasty Right?shoulder?diagnostic and surgical arthroscopy acromioclavicular joint resection Right?shoulder?diagnostic and surgical arthroscopy subacromial decompression (acromioplasty and bursectomy) Right shoulder diagnostic and surgical arthroscopy rotator cuff debridement with subacromial balloon spacer for massive rotator cuff tear Surgeon: Medhat Lopez DO Estimated blood loss: [10]mL IV fluids: See anesthesia record Implants: Medium size [place] Inspace subacromial balloon Complications: None Condition: stable Disposition: same day Brief History: Patient been seen and worked up in the outpatient setting for Right?shoulder?pain.? Pt had an MRI consistent with patient's medical record over the evidence of large/massive rotator cuff tear with atropy of infraspinatus and supraspinatus.. Patient's failed conservative treatment and has weakness.? Patient has findings consistent of a massive Right shoulder rotator cuff tear. We talked about treatment options far as nonoperative and op erative intervention..? We talked about risk benefits complication alternatives surgical nonsurgical treatment options.? Understanding risk of surgery pt agrees to proceed with surgical intervention.? All questions have been answered at this time.? Patient elects proceed with surgery and consent obtained in office. Procedure: Patient seen evaluated in the preoperative holding area.? Consent reviewed and signed with patient.? Once again reviewed patient's MRI results as well as? planned surgical intervention.? Correct extremity marked.? Patient seen evaluated by anesthesia department received regional anesthesia.? Once ready for surgery was taken back to the operative suite.? Patient then subsequently underwent anesthesia per the anesthesia department was transported onto the OR table.? Patient was then placed into a lateral decubitus position with a beanbag and was appropriately secured to the bed.? All bony prominences well-padded.? Patient then had the Right upper extremity was then prepped and draped in standard orthopedic fashion.? Patient received appropriate preoperative antibiotics.? Final timeout performed. The Right upper extremity was then held in hanging from traction utilizing sterile technique.? Next started with standard diagnostic and surgical arthroscopy with posterior portal position introduced arthroscope into the glenohumeral joint.? Visualized the glenohumeral joint I then introduced a spinal needle within the rotator cuff interval to confirm appropriate anterior portal placement.? Once this was confirmed I then made my small incision and then introduced my arthroscopic shaver into the glenohumeral joint.? After thorough debridement was clearly evident patient had a significant erythema as well as positive liftoff sign of the biceps anchor and biceps tendon tear as it was pulled within the joint.? Decision at this time was made to perform a biceps tenotomy.? Introduced a thermal wand and a biceps tenotomy was performed to completion With appropriate release.? Next I evaluated the subscapularis tendon which was intact and only a small amount of fraying arthroscopic shaver was used to debride this. The overall integrity of the subscapularis was intact and left alone. ?Next there was significant labral tearing at biceps anchor and circumferential.? ? I then subsequently utilized a a arthroscopic shaver and thermal wand to perform a labral debridement.? This point time I then visualized the glenohumeral joint.? 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 I utilized arthroscopic shaver and thermal wand to perform glenohumeral joint chondroplasty to stable articular tissue. Infrapatellar pouch was free of loose bodies from viewing the posterior portal.? Next a visualized the rotator cuff superiorly and there was found to be a large tear with exposed suture and retracted supraspinatus tendon to the past level of the glenoid Of the supraspinatus tendon.? I utilized a spinal needle to zahida this location.? ?This completed my work within the glenohumeral joint all fluid was suctioned free of the joint.? ?Next I reintroduced the arthroscope posteriorly.? And went to the subacromial space.? I established my lateral working portal at the site of which my spinal needle was marking of the rotator cuff tear.? Thermal wand was then introduced laterally and then I subsequently performed extensive bursectomy of the subacromial space.? I then subsequently utilizing my spinal needle debrided the area of the rotator cuff to better assess the tear this tear was a massive tear retracted to the level of the glenoid I utilized my arthroscopic soft tissue grasper and tried to mobilize the tissue but this tissue was poor fatty and significantly attenuated there is no evidence of excursion at this point in time this was considered a massive rotator cuff tear with no evidence or ability for repair or even a partial repair. As result patient was noted of having massive tear of both the supraspinatus and infraspinatus. Teres was the only residual tendon intact. Given this current nature I selected to place a subacromial balloon to help with the humeral head depressor. In order for preparation of this I performed a standard bursectomy. I then utilized my thermal wand to identify the subacromial space and performed a gentle subacromial decompression just to flatten the acromion. The CA ligament was left intact, I then identified the AC joint. Once identified the AC joint this was very arthritic in nature.? Thermal wand was placed anteriorly to establish appropriate plane for AC joint resection.? Once appropriate margins and anterior inferior and anterior capsule was released I then introduced arthroscopic shaver and a bur and performed AC joint resection of both the acromion to cope plane at the AC joint and a distal clavicle resection was then performed totaling 1 cm in size and was confirmed.? This completed my AC joint resection. At this point in time I then proceeded with placement of a subacromial balloon in space. At this point in time I utilized the standard measuring device utilizing arthroscopic probe and this was determined to have appropriate space for a medium sized this was then selected and opened by the rep and handed to my staff. I then utilizing the InSpace deployment device this was then laid into the subacromial space placed into appropriate position the balloon was then exposed and the balloon was then subsequently filled with normal saline to the appropriate amount per [place] InSpace protocol. The device was then disengaged and the balloon was inspected this stayed in stable position I then mobilized the shoulder and the humeral head remained depressed and in its appropriate position while it was taken through range of motion of the balloon stayed in stable position and had satisfactory placement and covered the humeral head. This completed the surgery.? All fluid was suctioned from the?shoulder.? All instruments were removed.? The lateral incision was then closed with nylon stitches.? As well as the portal sites closed with portal nylon stitches.? Xeroform 4 x 4's ABD and tape was then applied to the Right?shoulder?and was placed into a?shoulder?abduction pillow sling..? Patient was then awakened from anesthesia and then taken back to PACU in stable condition.? Patient tolerated procedure without any issues. Disposition: Patient taken back in stable condition recovering well.? Dressings on in place clean dry and intact.? Will be nonweightbearing to the Right upper extremity.? Follow appropriate PT protocol.? Patient to follow-up with me in the office in 2 weeks.? Patient will receive appropriate discharge instruction as well as pain medication postoperatively.? All questions answered.? We will contact the office for any questions or concerns.
== END 2023-04-10 14:32 | disposition home or self-care (01) ==
PROVIDERS: Anesthesiology; PCP Electrodiagnostic Medicine; Visit Provider Student in an Organized Health Care Education/Training Program
PROC: (CPT 29805; principal; 2023-04-10 10:45)
PROC: (CPT 29826; 2023-04-10 10:45)
PROC: 0RSG0ZZ Reposition Right Acromioclavicular Joint, Open Approach (ICD-10-PCS; CPT 29826; 2023-04-10 10:45)
PROC: (CPT 29999; 2023-04-10 10:45)
PROC: (CPT 29827; 2023-04-10 10:45)
DX: M75.111 Incomplete rotator cuff tear or rupture of right shoulder, not specified as traumatic (principal); M19.011 Primary osteoarthritis, right shoulder; M25.811 Other specified joint disorders, right shoulder; M75.21 Bicipital tendinitis, right shoulder; I48.91 Unspecified atrial fibrillation; I10 Essential (primary) hypertension; K21.9 Gastro-esophageal reflux disease without esophagitis; E11.9 Type 2 diabetes mellitus without complications; E66.01 Morbid (severe) obesity due to excess calories; Z68.30 Body mass index [BMI] 30.0-30.9, adult; Z79.82 Long term (current) use of aspirin; E78.5 Hyperlipidemia, unspecified; Z87.891 Personal history of nicotine dependence
CPT/HCPCS: 29826; 29827; 29828; 36415; 36416; 80048; 82962; 93005; C1889; J0131; J0690; J1100; J1885; J2371; J2405; J2704; J2795; J3010; J3490; J7030

== ENCOUNTER → 2023-04-30 14:38 | Outpatient (BNVA) | payer MEDICARE, OTHER, SELFPAY | PROVIDERS: PCP Electrodiagnostic Medicine; Visit Provider Physician Assistant | DX: Z98.890 Other specified postprocedural states (principal) | CPT/HCPCS: 99024 ==

== ENCOUNTER → 2023-05-21 13:58 | Outpatient (BNVA) | payer MEDICARE, OTHER, SELFPAY | PROVIDERS: PCP Electrodiagnostic Medicine; Visit Provider Student in an Organized Health Care Education/Training Program | DX: Z98.890 Other specified postprocedural states (principal) | CPT/HCPCS: 99213 ==

== ENCOUNTER 2023-11-23 02:00 | Emergency (ER) | payer MEDICARE, OTHER, SELFPAY ==
[2023-11-23 02:01] VITALS: BP 176/65; PULSE 71; RESP 20; TEMP 36.9; O2SAT 90; BMI 29.9
--- NOTE | 2023-11-23 02:04 | XRR_ITS ---
PROCEDURE INFORMATION: Exam: XR Right Ankle Exam date and time: 11/23/2023 2:09 AM Age: 88 years old Clinical indication: Injury or trauma; Blunt trauma; Right; Patient HX: EMS arrival from correction for fall. Patient fell onto floor getting up out of bed. Swelling to ankle with contusion to lateral side of ankle. ; Additional info: Fall pain TECHNIQUE: Imaging protocol: Radiologic exam of the right ankle. Views: 3 or more views. COMPARISON: CR XR knee RT 3V* [id number] 04/04/2022 9:33 AM FINDINGS: Bones/joints: Oblique fracture lucency transgressing the distal fibula. Widening of the medial tibiotalar joint. Heel spur. Achilles tendon insertion enthesophyte. Degenerative change of the visualized osseous structures elsewhere. Soft tissues: Normal. Lungs: Diffuse posttraumatic reticulation centered about the ankle. Vasculature: Peripheral arterial vascular disease. XR/XR ankle RT min 3V* [id number] IMPRESSION: 1. Oblique fracture through the distal fibula. 2. Widening of the medial tibiotalar joint indicating likely soft tissue injury. 3. Nonacute findings as above.
--- NOTE | 2023-11-23 02:04 | XRR_ITS ---
PROCEDURE INFORMATION: Exam: XR Right Hip Exam date and time: 11/23/2023 2:09 AM Age: 88 years old Clinical indication: Injury or trauma; Blunt trauma (contusions or hematomas); Right; Prior surgery; Surgery date: 6+ months; Surgery type: Hysterectomy; Patient HX: EMS arrival from correction for fall. Patient fell onto the floor getting up out of bed. C/O RT hip pain. ; Additional info: Fall pain TECHNIQUE: Imaging protocol: Radiologic exam of the right hip. Views: 1 view hip with pelvis when performed. COMPARISON: CR XR hip RT 2-3V wo/w pel* [id number] 04/04/2022 9:49 AM FINDINGS: Bones/joints: Moderate degenerative change. No acute fracture. Soft tissues: Unremarkable. XR/XR hip RT 2-3V wo/w pel* [id number] IMPRESSION: 1. Moderate osteoarthritis of the visualized structures. 2. No acute fracture.
--- NOTE | 2023-11-23 02:07 | ED_ITS ---
HPI - Fall General: Chief Complaint: Fall Stated Complaint: FALL Time Seen by Provider: 11/23/23 02:04 History of Present Illness: Patient brought in by EMS with complaints of right ankle and right hip pain after falling out of bed. Patient states she is rolled out of bed landing on her hip and hit her ankle. Patient denies hitting her head or losing consciousness. Related Data Home Medications Medication Instructions Recorded Confirmed atorvastatin 20 mg tablet 20 mg PO DAILY 10/05/20 05/21/23 carvedilol 3.125 mg tablet 3.125 mg PO BID 10/05/20 05/21/23 citalopram 20 mg tablet 20 mg PO DAILY 10/05/20 05/21/23 fenofibrate 160 mg tablet 160 mg PO DAILY 10/05/20 05/21/23 losartan 25 mg tablet 25 mg PO DAILY 10/05/20 05/21/23 tramadol 50 mg tablet 50 mg PO Q6H PRN Pain 10/05/20 05/21/23 trazodone 50 mg tablet 50 mg PO BEDTIME 01/22/22 05/21/23 aspirin 81 mg tablet,delayed 81 mg PO DAILY 01/24/23 05/21/23 release glipizide 5 mg tablet, extended 5 mg PO DAILY 01/24/23 05/21/23 release 24 hr iqljexry-pku-cvtkt ac 400 1 tab PO DAILY 01/24/23 05/21/23 mcg-calcium carb 500 mg-vit K1 20 mcg tablet (Women's 50 Plus Multivitamin) ropinirole 1 mg tablet 1 mg PO DAILY 01/24/23 05/21/23 Previous Rx's Medication Instructions Recorded spectrum afo with lateral T strap #1 ea 10/05/20 tramadol 50 mg tablet 50 mg PO Q6H PRN pain #20 tabs 04/10/23 hydrocodone 5 mg-acetaminophen 325 1 tab PO Q6H PRN pain #14 tabs 11/23/23 mg tablet Allergies Allergy/AdvReac Type Severity Reaction Status Date / Time codeine Allergy Mild Rash Verified 05/21/23 14:07 Review of Systems General: Reports: 10 or more systems reviewed and unremarkable except in HPI and below PFSH ED PFSH: Medical History Hyperlipidemia, unspecified Gastro-esophageal reflux disease without esophagitis Diverticulitis Hypertension Atrial fibrillation Surgical History H/O: hysterectomy Hx of cholecystectomy H/O shoulder surgery Social History Smoking and tobacco/nicotine status: former use of tobacco/nicotine Alcohol intake: current Alcohol intake frequency: holidays/special occasions only Physical Exam Const: COMMON NORMALS: no acute distress, average body habitus, patient oriented x3, no limitations, healthy appearing, alert and well nourished HENMT: COMMON NORMALS: normocephalic, atraumatic, hearing grossly normal bilaterally, external ears normal, Normal external nose present and moist oral mucous membranes HEAD & SCALP: normocephalic and atraumatic NOSE: Normal external nose present EXTERNAL EAR: Yes external ears normal Neck/C-Spine: COMMON NORMALS: full ROM, no lymphadenopathy, supple, no meningeal signs, no JVD and Thyroid normal THYROID: Thyroid normal Chest: COMMONS NORMALS: normal inspection of the chest and normal palpation of entire chest wall Resp: COMMON NORMALS: normal respiratory effort, No retractions, No use of accessory muscles and clear to auscultation bilaterally AUSCULTATION: clear to auscultation bilaterally Cardio: COMMON NORMALS: no JVD, regular rate, regular rhythm, S1 normal heart sound present, S2 normal heart sound present, No gallops present (Cardio), No clicks present (Cardio), No murmurs present (Cardio) and No rub (Cardio) RATE: regular rate RHYTHM: regular rhythm HEART SOUNDS: S1 normal heart sound present and S2 normal heart sound present GI: COMMON NORMALS: Normal to inspection, nondistended, normoactive bowel sounds present, Soft to palpation, non-tender, No hepatosplenomegaly present and no masses PALPATION: Yes Soft to palpation and Yes No hepatosplenomegaly present Extremity: NARRATIVE EXTREMITY EXAM: Tenderness to palpation over right hip, no obvious swelling deformity crepitus, swelling over right ankle limited range of motion secondary to pain. Neuro: COMMON NORMALS: patient oriented x3 SENSORIUM/ORIENTATION: Yes alert MENINGEAL SIGNS: Yes no meningeal signs Course Vital Signs: Vital signs: Vital Signs Temperature 98.5 F 11/23/23 02:01 Pulse Rate 73 11/23/23 02:18 Respiratory Rate 18 11/23/23 02:18 Blood Pressure 153/75 11/23/23 02:18 Pulse Oximetry 93 11/23/23 02:18 Oxygen Delivery Me thod Nasal Cannula 11/23/23 02:18 Oxygen Flow Rate 1 11/23/23 02:18 MDM - Fall Medical Decision Making X-rays were obtained of the ankle and hip and pelvis, radiology read the ankle has oblique fracture through the distal fibula widening of the tibiotalar joint the x-ray of the hip and pelvis was read office no acute fracture. Patient was placed in a splint we will prescribe her a prescription of [place] and refer her to the orthopedic surgeon. Medical Records I reviewed the patient's medical records. Lab Data I reviewed the patient's lab results. Radiology Impressions Ankle X-Ray 11/23/23 02:04 IMPRESSION: 1. Oblique fracture through the distal fibula. 2. Widening of the medial tibiotalar joint indicating likely soft tissue injury. 3. Nonacute findings as above. Hip/Pelvis X-Ray 11/23/23 02:04 IMPRESSION: 1. Moderate osteoarthritis of the visualized structures. 2. No acute fracture. All radiology interpretation(s) finalized by discharge Discharge Plan Discharge Patient Disposition: Home Clinical Impression: Fracture of distal end of fibula, Fall Condition: Stable Prescriptions: New hydrocodone-acetaminophen 5-325 mg tablet 1 tab PO Q6H PRN (Reason: pain) Qty: 14 0RF No Action (DME) spectrum afo with lateral T strap See Rx Instructions .ROUTE .MEDSUPPLY Qty: 1 0RF Rx Instructions: As directed by ALBA&O atorvastatin 20 mg tablet 20 mg PO DAILY citalopram 20 mg tablet 20 mg PO DAILY fenofibrate 160 mg tablet 160 mg PO DAILY losartan 25 mg tablet 25 mg PO DAILY tramadol 50 mg tablet 50 mg PO Q6H PRN (Reason: Pain) carvedilol 3.125 mg tablet 3.125 mg PO BID Rx Instructions: must administer with a meal/food ropinirole 1 mg Tablet 1 mg PO DAILY glipizide 5 mg Tablet Extended Release 24hr 5 mg PO DAILY aspirin 81 mg Tablet,Delayed Release (Dr/Ec) 81 mg PO DAILY Women's 50 Plus Multivitamin 400 mcg-500 mg calcium-20 mcg Tablet 1 tab PO DAILY tramadol 50 mg tablet 50 mg PO Q6H PRN (Reason: pain) Qty: 20 0RF trazodone 50 mg tablet 50 mg PO BEDTIME Discharge Orders: Discharge ED (Routine); Ordered 11/23/23 Ordered By: Braden Jerome Referrals: Savage Pendleton, [Primary Care Provider] - 1 week Patient Instructions: Opioid Safety, Pain Management, Ankle Fracture (ED) Activity Restrictions/Additional Instructions: When you fell you broke your ankle. You have been placed in a splint. Please keep the splint on at all times until seen by orthopedics. Case management will be giving you a call during business hours to arrange this appointment. A prescription for hydrocodone has been sent to your pharmacy. Please take as directed as needed for pain. Coding Level of Care Code ED [employer] for Darrell Zavaleta
[2023-11-23 02:18] VITALS: BP 153/75; PULSE 73; RESP 18; O2SAT 93
[2023-11-23] MEDS: morphine 4 mg/mL SDV 1 mL IM (02:40)
[2023-11-23] MEDS: ondansetron 2 mg/ML SDV 2 mL 4 MG IM (02:40)
[2023-11-23 04:57] VITALS: BP 141/65; PULSE 72; O2SAT 90
--- NOTE | 2023-11-25 07:24 | DCPLANNER ---
messaged ortho for er f/u
== END 2023-11-23 04:59 | disposition home or self-care (01) ==
PROVIDERS: Emergency Provider Emergency Medicine; PCP Electrodiagnostic Medicine
DX: S82.431A Displaced oblique fracture of shaft of right fibula, initial encounter for closed fracture (principal); W06.XXXA Fall from bed, initial encounter; I10 Essential (primary) hypertension; E78.5 Hyperlipidemia, unspecified; Z87.891 Personal history of nicotine dependence
CPT/HCPCS: 73502; 73610; 96372; 99284; J2270; J2405

== ENCOUNTER → 2023-11-25 15:26 | Outpatient (BNVA) | payer MEDICARE, OTHER, SELFPAY | PROVIDERS: PCP Electrodiagnostic Medicine; Visit Provider Podiatrist Foot & Ankle Surgery | DX: W19.XXXA Unspecified fall, initial encounter (principal); S82.831A Other fracture of upper and lower end of right fibula, initial encounter for closed fracture | CPT/HCPCS: 73610 ==

== ENCOUNTER 2023-11-25 16:22 | Outpatient (CLI) | payer MEDICARE, OTHER, SELFPAY | END 2023-11-25 16:23 | disposition home or self-care (01) | LOC: SPT 16:23 | PROVIDERS: PCP Electrodiagnostic Medicine; Visit Provider Podiatrist Foot & Ankle Surgery | DX: Z46.89 Encounter for fitting and adjustment of other specified devices (principal); S82.831D Other fracture of upper and lower end of right fibula, subsequent encounter for closed fracture with routine healing; W19.XXXD Unspecified fall, subsequent encounter | CPT/HCPCS: 97760; 99204; L4361 ==

== ENCOUNTER 2023-11-29 08:47 | Day surgery (SDC) | payer MEDICARE, OTHER, SELFPAY ==
[2023-11-29] VITALS (8 sets, daily range): BP systolic 102–175; BP diastolic 54–86; PULSE 64–73; RESP 15–19; TEMP 36.1–36.6; O2SAT 90–98; BMI 30.9
[2023-11-29] MEDS: sodium chloride 0.9% 1,000 ML 30 ML IV (09:23)
--- NOTE | 2023-11-29 09:31 | ANES.PREANE2 ---
Pre-Anesthetic Assessment Height/Weight: Height 5 ft 4 in Weight 180 lb Temp Pulse Resp BP Pulse Ox O2 Del Method 97.5 F L 73 18 175/86 92 Room Air 11/29/23 09:05 11/29/23 09:05 11/29/23 09:05 11/29/23 09:05 11/29/23 09:05 11/29/23 09:10 Preop Diagnosis: Right distal fibular fracture Operation Date: 11/29/23 10:25 Proposed Procedures p ORIF Ankle ORIF Distal Fibula(Right) - GREY StrongM Was Beta Sherif taken within 24 hours: Yes Was Clonidine taken within 24 hours: N/A Last intake: Intake Last Liquid Date 11/28/23 Last Liquid Time 21:00 Last Solid Date 11/28/23 Last Solid Time 21:00 Exam alert, oriented x 3, clear to auscultation bilaterally and regular rate & rhythm Airway Submandibular: within normal limits Cervical ROM: within normal limits Mallampati: Class III Dentition: full Anesthetic Plan ASA status: 3 Anesthesia: MAC and Regional (specify below) Other: No prior issues with anesthesia NPO since yesterday evening History of hypertension on losartan and carvedilol. BB taken today. Preop BP 175/86 Type 2 diabetes, not on insulin EKG earlier this year showing sinus rhythm with RBBB Plan for preop popliteal block and MAC anesthetic Medications/Allergies Home Medications Medication Instructions Recorded Confirmed Last Taken Type atorvastatin 20 mg tablet 20 mg PO DAILY 10/05/20 11/29/23 11/28/23 History carvedilol 3.125 mg tablet 3.125 mg PO BID 10/05/20 11/29/23 11/29/23 History citalopram 20 mg tablet 20 mg PO DAILY 10/05/20 11/29/23 11/28/23 History fenofibrate 160 mg tablet 160 mg PO DAILY 10/05/20 11/29/23 11/28/23 History losartan 25 mg tablet 25 mg PO DAILY 10/05/20 11/29/23 11/28/23 History spectrum afo with lateral T strap #1 ea 10/05/20 11/29/23 Unknown Rx trazodone 50 mg tablet 50 mg PO BEDTIME 01/22/22 11/29/23 04/08/23 History aspirin 81 mg tablet,delayed 81 mg PO DAILY 01/24/23 11/29/23 11/27/23 History release glipizide 5 mg tablet, extended 5 mg PO DAILY 01/24/23 11/29/23 11/28/23 History release 24 hr atghqszr-ljo-drvjb ac 400 1 tab PO DAILY 01/24/23 11/29/23 11/28/23 History mcg-calcium carb 500 mg-vit K1 20 mcg tablet (Women's 50 Plus Multivitamin) ropinirole 1 mg tablet 3 mg PO DAILY 01/24/23 11/29/23 11/28/23 History tramadol 50 mg tablet 50 mg PO Q6H PRN pain #20 tabs 04/10/23 11/29/23 Unknown Rx CAM BOOT to right #1 ea 11/25/23 11/29/23 Unknown Rx Allergies Allergy/AdvReac Type Severity Reaction Status Date / Time codeine Allergy Mild Rash Verified 11/29/23 09:05 hydrocodone Allergy Mild ALGY-Rash Verified 11/29/23 09:05 Current Medications Generic Name Dose Route Start Last Admin Trade Name Freq PRN Reason Stop Dose Admin Sodium Chloride 1,000 mls @ 30 mls/hr 11/29/23 09:00 11/29/23 09:23 Sodium Chloride 0.9% IV 11/30/23 08:59 30 mls/hr .Q24H JON Administration PFSH Anesthesia Medical History Hyperlipidemia, unspecified Gastro-esophageal reflux disease without esophagitis Diverticulitis Hypertension Atrial fibrillation Surgical History H/O: hysterectomy Hx of cholecystectomy H/O shoulder surgery Social History Smoking and tobacco/nicotine status: former use of tobacco/nicotine Alcohol intake: current Alcohol intake frequency: holidays/special occasions only Data Anesthesia Cardiac Studies: No Data to Display
--- NOTE | 2023-11-29 10:11 | W.PM.OPSUD ---
Surgery/Procedure H&P Update DATE OF PROCEDURE: November 29, 2023 DATE H&P PERFORMED: 11/25/23 H&P UPDATE INFORMATION: I have reviewed H&P completed within last 30 days, I have examined patient prior to procedure, No changes to prior documentation and H&P is in [facility] on date indicated PREOP DIAGNOSIS: Right distal fibular fracture PLANNED PROCEDURE: Operation Date: 11/29/23 10:25 Proposed Procedures p ORIF Ankle ORIF Distal Fibula(Right) - Sal Mason DPM
--- NOTE | 2023-11-29 10:19 | ANES.PROC ---
Anesthesia Procedures Procedure/Date: 11/29/23 Nerve Block ^: Nerve Block 1: Main Anesthesia: other (100mcg fentanyl) Time Out Performed: Yes Consent: requested by attending/covering physician and from patient Nerve block location: popliteal Anesthesia monitors applied: pulse oximetry, EKG, BP cuff and oxygen Nerve block position: supine Anesthetic Used: ropivicaine 0.5% Amount of anesthesia used (mL): 30 Ultrasound used to: recognize landmarks Nerve Stimulator Used?: Yes Interscalene/Femoral BLK: other needle (pjunk 4inch) Injection: neg aspiration of heme Patient Tolerated Procedure: well Complications: none Additional Comments: decadron 4mg
--- NOTE | 2023-11-29 10:22 | PC.NURSE ---
Patient given popliteal block 30 ml 0.5% ropivicaine. Patient tolerated well.
[2023-11-29] MEDS: ceFAZolin 2,000 mg SDV 2000 MG IVP (10:30)
--- NOTE | 2023-11-29 11:11 | P.OP_ITS ---
Operative Report Date of procedure: November 29, 2023 Pre-op diagnosis: Fracture of distal end of right fibula S82.831A Post-op diagnosis: Fracture of distal end of right fibula S82.831A Procedure done: Open reduction internal fixation right distal fibula. CPT code: 41453 Implants: Barker anatomic fibular plate with 3.5 mm locking screws 2-0 Vicryl 3-0 Vicryl Skin melissa Surgeon: Sal Mason DPM Professor In Family Studies: YAKOV Gallo Estimated blood loss: 10 mL 18 minutes IV fluids: 400 Urine output: None Complications: no complications Findings: Unstable displaced Yovanny Sparrow B fracture right lateral malleolus Brief History: 88-year-old female with a history of left fibular fracture presenting with non- union and malalignment of the fracture site. The review of radiographic imaging confirms an incomplete healing of the fracture with significant displacement. Given the risks associated with non-surgical management in her current state, surgical intervention is considered necessary. The goal is to restore the proper anatomical alignment and enable weight-bearing activities post-surgery. The patient has verbalized understanding of the surgical plan and associated risks considering her advanced age. 1. Left Fibular Fracture The patient is scheduled to undergo surgical fixation of the right fibular f racture. The plan involves performing an outpatient procedure under regional anesthesia following a nerve block behind the knee, which minimizes the use of general anesthesia, addressing concerns related to the patient's age. Surgical intervention aims to realign the fracture into proper anatomical position to facilitate healing and support weight-bearing activities. The procedure is anticipated to take approximately 15 minutes. Post-operative care will include the use of a boot and restricted movement with initial weight-bearing as tolerated. The patient will avoid the use of blood thinners before the surgery, in this case, aspirin. The patient will receive pre-operative instructions and a follow-up call the day before surgery. I reviewed at length with the patient, the risks, potential complications, benefits, alternatives, expectations, and typical outcomes associated with the surgery. The risks and potential complications were explained in detail, including but not limited to infection, wound dehiscence or soft tissue complications, bleeding and hematoma, chronic edema, neuritis or nerve damage producing numbness or chronic pain, CRPS, failure to relieve pain or worsening pain, thick / painful / unsightly scar, limited motion / stiffness, malposition, delayed union, malunion, or nonunion, fracture, reaction to implants, anesthetic complications, venous thromboembolism, and deformity recurrence. I discussed the notion of no regrets with the patient as it pertains to complications and outcomes. The patient seemed to understand the nature of the proposed care and required convalescence. They asked appropriate questions, answered to their satisfaction. They are aware no guarantees can be made as to a satisfactory outcome and they understand there may be other possible unforeseen complications or outcomes not listed here that will be treated accordingly if they arise. There were no written or implied guarantees given to the patient. They gave informed consent to proceed. Procedure: Under mild sedation the patient was brought to the operating room and placed onto the operating table in supine position. A timeout was performed. Anesthesia was then administered by the anesthesia service. Of note popliteal block of the right lower extremity was performed per anesthesia preoperatively. Well-padded pneumatic tourniquet applied to the right high calf. The right lower extremity was scrubbed, prepped and draped utilizing normal aseptic technique. Right foot and ankle were exanguinated with an Esmarch bandage and tourniquet plated to 250 mmHg. Attention was directed the right lateral ankle where bony landmark was palpated, was able to palpate prominently the lateral malleolus directly over the distal f ibula and a linear longitudinal incision is made through skin directly adjacent to the lateral malleolus with dissection carried down to the periosteum and fracture hematoma utilizing sharp and blunt technique. Care was taken to retract and preserve neurovascular and tendinous structures. All bleeders were ligated and cauterized as necessary. Fracture was distracted and curettage of hematoma followed by saline flush this was then reduced and temporarily fixated with bone reduction forceps and utilizing standard AO technique and anatomic fibular plate was utilized with locking screws to fixate the fracture with excellent bony apposition and compression noted. AP, oblique and lateral views intraoperatively confirmed excellent placement of hardware, anatomic reduction of distal fibula and hardware not violating the ankle mortise. Smooth range of motion appreciated, cotton test confirmed no syndesmotic disruption or medial gutter widening. The incision was irrigated with saline solution and closed in a layered fashion with periosteum reapproximated 2-0 Vicryl, subcutaneous tissue with 3-0 Vicryl and skin with melissa. Dressing consisting of Adaptic, sterile 4 x 4's, Kerlix and Nic wrap were applied to the right lateral ankle incision followed by application of a cam boot. Tourniquet was then deflated and a prompt hyperemic response is noted to the distal digits of the right foot. Patient tolerated the procedure and anesthesia well and was transferred to the PACU with vital signs stable and vascular status intact. Following a period of postoperative monitoring she will be discharged home. May be protected weightbearing with a cam boot utilizing a walker otherwise rest and elevate. Was given at home care instructions and scheduled follow-up.
--- NOTE | 2023-11-29 12:20 | ANE.PACU2 ---
Inpatient post-anesthesia follow up: Airway intact: Yes Vital signs: Temperature 97.0 F Pulse Rate 67 Respiratory Rate 18 Blood Pressure 172/82 Pulse Oximetry 91 Oxygen Delivery Me thod Room Air Oxygen Flow Rate 6 Fraction of Inspir ed Oxygen Hydration adequate: Yes Nausea and vomiting: No Pain level: 1 Mental status: Baseline
--- NOTE | 2023-11-29 14:30 | XR_ITS ---
WS: [id number] Right ankle, C-arm fluoroscopy views, 11/29/2023 Clinical Data: ORIF ANKLE , OR PIC Comparison: Right ankle, 11/25/2023 Findings: Dr. Mason placed a lateral plate on the distal right fibula attached with multiple screws. XR/XR ankle RT 2V [id number] Impression: Internal fixation of distal right fibular fracture.
== END 2023-11-29 12:20 | disposition home or self-care (01) ==
PROVIDERS: PCP Electrodiagnostic Medicine; Visit Provider Podiatrist Foot & Ankle Surgery
PROC: (CPT 27792; principal; 2023-11-29 10:15)
DX: S82.831A Other fracture of upper and lower end of right fibula, initial encounter for closed fracture (principal); W19.XXXA Unspecified fall, initial encounter; I10 Essential (primary) hypertension; E11.9 Type 2 diabetes mellitus without complications; Z79.82 Long term (current) use of aspirin; E78.2 Mixed hyperlipidemia; Z87.891 Personal history of nicotine dependence; I48.91 Unspecified atrial fibrillation
CPT/HCPCS: 27792; 73600; 76000; C1713; J0690; J2704; J7030

== ENCOUNTER → 2023-12-12 14:21 | Outpatient (BNVA) | payer MEDICARE, OTHER, SELFPAY | PROVIDERS: PCP Electrodiagnostic Medicine; Visit Provider Podiatrist Foot & Ankle Surgery | DX: S82.831D Other fracture of upper and lower end of right fibula, subsequent encounter for closed fracture with routine healing; W19.XXXD Unspecified fall, subsequent encounter | CPT/HCPCS: 73610; 99024 ==

== ENCOUNTER → 2024-01-07 15:34 | Outpatient (BNVA) | payer MEDICARE, OTHER, SELFPAY | PROVIDERS: PCP Electrodiagnostic Medicine; Visit Provider Podiatrist Foot & Ankle Surgery | DX: Z98.890 Other specified postprocedural states (principal); S82.831D Other fracture of upper and lower end of right fibula, subsequent encounter for closed fracture with routine healing; W19.XXXD Unspecified fall, subsequent encounter; Z46.89 Encounter for fitting and adjustment of other specified devices | CPT/HCPCS: 73610; 99024 ==

== ENCOUNTER 2024-01-07 16:14 | Outpatient (CLI) | payer MEDICARE, OTHER, SELFPAY | END 2024-01-07 16:15 | disposition home or self-care (01) | LOC: SPT 16:15 | PROVIDERS: PCP Electrodiagnostic Medicine; Visit Provider Podiatrist Foot & Ankle Surgery | DX: Z46.89 Encounter for fitting and adjustment of other specified devices (principal); S82.831D Other fracture of upper and lower end of right fibula, subsequent encounter for closed fracture with routine healing; X58.XXXD Exposure to other specified factors, subsequent encounter | CPT/HCPCS: 97760; L1902 ==

== ENCOUNTER → 2024-01-30 14:02 | Outpatient (BNVA) | payer MEDICARE, OTHER, SELFPAY | PROVIDERS: PCP Electrodiagnostic Medicine; Visit Provider Podiatrist Foot & Ankle Surgery | DX: S82.831D Other fracture of upper and lower end of right fibula, subsequent encounter for closed fracture with routine healing; Z98.890 Other specified postprocedural states; X58.XXXD Exposure to other specified factors, subsequent encounter | CPT/HCPCS: 73610; 99024 ==

== ENCOUNTER 2024-11-23 22:07 | Inpatient (IN) | payer MEDICARE, OTHER, SELFPAY ==
[2024-11-23 22:08] VITALS: BP 199/79; PULSE 61; RESP 18; TEMP 37; O2SAT 87; BMI 31.7
--- NOTE | 2024-11-23 22:15 | XRR_ITS ---
PROCEDURE INFORMATION: Exam: XR Chest Exam date and time: 11/23/2024 10:18 PM Age: 89 years old Clinical indication: Shortness of breath; Prior surgery; Surgery date: 6+ months; Surgery type: Shoulder, c-spine, gallbladder; Additional info: SOB TECHNIQUE: Imaging protocol: Radiologic exam of the chest. Views: 1 view. COMPARISON: CR XR chest 2V* [id number] 11/08/2022 10:03 AM FINDINGS: Lungs: Central and bibasilar predominant interstitial prominence is present. Pleural spaces: Unremarkable. No pleural effusion. No pneumothorax. Heart/Mediastinum: The heart is normal in size. Mediastinal contours are within normal limits. Vasculature: Atherosclerotic changes of the aorta are noted. Bones/joints: Partially imaged cervical fusion hardware is noted. Left humeral suture anchors are present. XR/XR chest 1V portable [id number] IMPRESSION: Findings suggestive of mild pulmonary edema or interstitial pneumonia.
--- OUTSIDE RECORDS SUMMARY | 2024-11-23 22:18 | XMS_ITS | Clinical Summary ---
Author Organization [facility] Address [address] [place] [address] Care Team Providers Care Clinical Reimbursement Specialist Name Role Phone Unavailable Primary Care Provider Unavailabl e Social History Tobacco Use Types Packs/Day Years Used Date Smoking Tobacco: Never Assessed Comments Unknown Sex and Gender Information Value Date Recorded Sex Assigned at Not on file Legal Sex Female 11:26 AM CDT Gender Identity Not on file Sexual Orientation Not on file Plan of Treatment Health Maintenance Due Date Last Done Comments DTAP/TDAP/TD VACCINES (1 - Tdap) 1954 PNEUMOCOCCAL VACCINE 50+ YEARS (1 of 1 - PCV) 11/19/18 88 ZOSTER VACCINE (1 of 2) 11/20/1987 OSTEOPOROSIS SCREENING 2002 RSV VACCINE (60+ or ) (1 - 1-dose 75+ series) 2012 INFLUENZA VACCINE (#1) 2024 Insurance MEDICARE PART A AND B [employer] INDEMNITY
--- OUTSIDE RECORDS SUMMARY | 2024-11-23 22:18 | XMS_ITS | Clinical Summary ---
Author Organization [facility] Address [address] [place] [address] Care Team Providers Care Delivery Lead Name Role Phone Unavailable Primary Care Provider Unavailabl e Allergies Active Allergy Reactions Criticality Noted Date Comments Codeine Hives,Rash High 09/10/2022 Medications atorvastatin (LIPITOR) 20 mg tablet 20 mg. 10/05/2020 Active aspirin (ECOTRIN EC) 81 mg Tablet, Delayed Release (E.C.) Take 81 mg by mouth daily. Active carvediloL (COREG) 3.125 mg tablet Take 3.125 mg by mouth 2 times daily with meals. Active citalopram (CeleXA) 20 mg tablet Take 20 mg by mouth daily at bedtime. Active losartan (COZAAR) 25 mg tablet Take 25 mg by mouth daily. Active FENOFIBRATE ORAL Take by mouth. Active meloxicam (MOBIC) 7.5 mg tablet Take 7.5 mg by mouth daily. Active glipiZIDE (GLUCOTROL) 5 mg tablet Take 5 mg by mouth daily with breakfast. Active traMADoL (ULTRAM) 50 mg tablet Take by mouth every 6 hours as needed for Pain. Active traZODone (DESYREL) 50 mg tablet Take 50 mg by mouth daily at bedtime. Active Active Problems Problem Noted Date Diagnosed Date H/O total hysterectomy 09/10/2022 Social History Tobacco Use Types Packs/Day Years Used Date Smoking Tobacco: Never Smokeless Tobacco: Never Tobacco Cessation:Counseling Given: Not Answered Alcohol Use Standard Drinks/Week Comments Yes 0 (1 standard drink = 0.6 oz pur e alcohol) Comments Unknown Sex and Gender Information Value Date Recorded Sex Assigned at Not on file Legal Sex Female 11:27 AM CDT Gender Identity Not on file Sexual Orientation Not on file Last Filed Vital Signs Vital Sign Reading Time Taken Comments Blood Pressure 110/70 09/10/2022 10:05 AM CDT Pulse - - Temperature - - Respiratory Rate - - Oxygen Saturation - - Inhaled Oxygen Concentration - - Weight 81.6 kg (180 lb) 09/10/2022 10:05 AM CDT Height 165.1 cm (5' 5 ) 09/10/2022 10:05 AM CDT Body Mass Index 29.95 09/10/2022 10:05 AM CDT Plan of Treatment Health Maintenance Due Date Last Done Comments DTAP/TDAP/TD VACCINES (1 - Tdap) 1954 PNEUMOCOCCAL VACCINE 50+ YEARS (1 of 1 - PCV) 11/19/18 88 ZOSTER VACCINE (1 of 2) 11/20/1987 OSTEOPOROSIS SCREENING 2002 RSV VACCINE (60+ or ) (1 - 1-dose 75+ series) 2012 INFLUENZA VACCINE (#1) 2024 Insurance MEDICARE PART A AND B [facility] OPEN ACCESS O
[2024-11-23 22:19] VITALS: BP 171/93; PULSE 62; RESP 24; O2SAT 92
--- NOTE | 2024-11-23 22:19 | ECG_ITS ---
[facility] [place] [facility] Date: 2024-11-23 Pat Name: Nicolle Chavarria Department: Room: Gender: Female Learning Engineer: : [id number] Requested By: Gigi Lo Order Number: [id number] Wiley MD: Arias Deras M.D. Measurements Intervals [place] Rate: 60 P: 0 OH: 0 QRS: -37 QRSD: 86 T: 60 QT: 407 QTc: 407 Interpretive Statements Normal Sinus Rhythm SINUS ARRHYTHMIA LEFT AXIS DEVIATION [QRS AXIS < -30] LOW QRS VOLTAGE IN PRECORDIAL LEADS [QRS DEFLECTION < 1.0 mV IN CHEST LEADS] POSSIBLE RIGHT VENTRICULAR CONDUCTION DELAY [RSR (QR) IN V1/V2] ANTEROSEPTAL MYOCARDIAL INFARCTION , OF INDETERMINATE AGE [40+ ms Q WAVE IN V1-V4] Compared to ECG 04/10/2023 10:31:39 NO SIGNIFICANT CHANGE Electronically Signed On 11-25-2024 21:05:49 CDT by Arias Deras M.D. [email or web address]
[2024-11-23] MEDS: methylPREDNISolone sod succ 125 mg/2 mL INJ IVP (22:25)
[2024-11-23 22:31] LABS: Hematocrit 39.6 % (36-47); Hemoglobin 11.70 g/dL (11.27-16.99); Mean Corpuscular HGB Conc 29.5 g/dL (30-55); Mean Corpuscular Hemoglobin 27.7 pg (27-33); Mean Corpuscular Volume 93.8 fl (85-98); Nucleated Red Blood Cells % 0.3 %; Platelet Count 238 10^3/cmm (157-399); Red Blood Count 4.22 10^6/uL (3.85-5.65); White Blood Count 9.17 10^3/uL (3.29-11.43)
--- NOTE | 2024-11-23 22:34 | ED_ITS ---
<Statement entered by Becca Benites MD - 11/24/24 04:11> I, Dr. Benites, attest that I have discussed and reviewed patient history, physical exam, assessment and plan of care with Gigi RODRÍGUEZ and agree with treatment and plan of care as documented for this patient encounter by BRITTNY. HPI - SOB/Dyspnea 2 General: Chief Complaint: Shortness of Breath/Dyspnea Stated Complaint: sob Time Seen by Provider: 11/23/24 22:08 Source: patient and EMS Mode of arrival: EMS Limitations: no limitations History of Present Illness: HPI Narrative: Patient is an 89-year-old female with past medical history of atrial fibrillation and hypertension who presents to the emergency department by ambulance due to shortness of breath. Her symptoms began earlier today, she has been short of breath all day and EMS notes that she has been bradycardic occasionally dropping into the 40s. Patient in notable respiratory distress using accessory muscles, hypertensive on arrival and she is on 5 L of oxygen to maintain above 90%. She does not usually use home oxygen. She is speaking in choppy sentences but does appear to be alert and oriented, no altered mentation. She denies any COPD or previous heart attacks. Denies any coughing, fevers, vomiting, or recent illness. She is not reporting any sick contacts. She is afebrile at this time. Currently denying chest pain. Patient arrives from home. MD elicited complaint: shortness of breath Onset (ago): hour(s) Timing: constant and progressively worsening Severity: severe Associated symptoms: Deny abdominal pain, chest pain, fever(s), hemoptysis, lightheadedness, nausea, palpitations or vomiting Treatment prior to arrival: oxygen Related Data Home Medications ?Medication ?Instructions ?Recorded ?Confirmed atorvastatin 20 mg tablet 20 mg PO DAILY 10/05/2001/11 carvedilol 3.125 mg tablet 3.125 mg PO BID 10/05/20 citalopram 20 mg tablet 20 mg PO DAILY 10/05/2001/11 fenofibrate 160 mg tablet 160 mg PO DAILY 10/05/20 losartan 25 mg tablet 25 mg PO DAILY 10/05/2001/11 trazodone 50 mg tablet 50 mg PO BEDTIME 01/22/22 aspirin 81 mg tablet,delayed 81 mg PO DAILY 01/24/23 1 04/01/23 release glipizide 5 mg tablet, extended 5 mg PO DAILY 01/24/23 01/30/24 release 24 hr ajisfrmg-kln-fhyxi ac 400 1 tab PO DAILY 01/24/2301/11 mcg-calcium carb 500 mg-vit K1 20 mcg tablet (Women's 50 Plus Multivitamin) ropinirole 1 mg tablet 3 mg PO DAILY 01/24/2301/29 Previous Rx's ?Medication ?Instructions ?Recorded spectrum afo with lateral T strap #1 ea 10/05/20 tramadol 50 mg tablet 50 mg PO Q6H PRN pain #20 ta bs 04/10/23 CAM BOOT to right #1 ea 11/25/23 ASO #1 ea 01/07/24 Allergies Allergy/AdvReac Type Severity Reaction Status Date / Time codeine Allergy Mild Rash Verified 01/30/24 14:17 hydrocodone Allergy Mild ALGY-Rash Verified 01/30/24 14:17 Review of Systems 2 General: Reports: 10 or more systems reviewed and unremarkable except in HPI and below Const: Denies: fever(s) or chills Card: Denies: chest pain, palpitations, swelling of feet/ankles or lightheadedness Resp: Reports: dyspnea; Denies: productive cough, wheezing or hemoptysis GI: Denies: abdominal pain, nausea, vomiting, diarrhea or constipation Musc: Denies: neck pain, back pain or joint pain Skin/Breast: Denies: rash Neuro: Denies: headache(s), numbness in extremities or weakness in extremities PFSH ED 2 PFSH: Medical History Hyperlipidemia, unspecified Gastro-esophageal reflux disease without esophagitis Diverticulitis Hypertension Atrial fibrillation Surgical History H/O: hysterectomy Hx of cholecystectomy H/O shoulder surgery Social History Smoking and tobacco/nicotine status: former use of tobacco/nicotine Alcohol intake: current Alcohol intake frequency: holidays/special occasions only Physical Exam 2 Const: COMMON NORMALS: patient oriented x3 and alert GENERAL APPEARANCE: c ooperative ORIENTATION/CONSCIOUSNESS: Yes awake, Yes oriented to person, Yes oriented to place and Yes oriented to time OTHER: Patient is in active respiratory distress with use of accessory muscles HENMT: COMMON NORMALS: normocephalic and atraumatic HEAD & SCALP: n ormocephalic and atraumatic OTHER: Dry oral mucosa Eye: COMMON NORMALS: Equal, round and reactive pupils present and EOMs intact bilaterally PUPIL: Yes Equal, round and reactive pupils present Neck/C-Spine: COMMON NORMALS: full ROM and no JVD Resp: OTHER: Decreased lung sounds throughout. Use of accessory muscles to breathe. She is tachypneic. No active coughing or audible wheezing. Speaks in choppy sentences Cardio: COMMON NORMALS: no JVD and regular rate RATE: regular rate R HYTHM: abnormal rhythm irregularly irregular OTHER: Systolic ejection murmur GI: COMMON NORMALS: Soft to palpation and non-tender INSPECTION: Yes central obesity PALPATION: Yes Soft to palpation Extremity: NARRATIVE EXTREMITY EXAM: 2+ pitting edema to bilateral lower extr emities, delayed cap refill Neuro: COMMON NORMALS: patient oriented x3, moves all extremities, no focal motor deficits and no sensory deficits noted SENSORIUM/ORIENTATION: Yes alert, Yes oriented to person, Yes oriented to place and Yes oriented to time Skin: COMMON NORMALS: no rashes or lesions noted GENERAL SKIN EXAM: no rashes or lesions noted Course 2 Vital Signs: Vital signs: Vital Signs Temperature 98.6 F 11/23/24 22:08 Pulse Rate 56 L 11/23/24 23:23 Respiratory Rate 18 11/23/24 23:23 Blood Pressure 171/93 11/23/24 22:19 Pulse Oximetry 93 11/23/24 23:23 Oxygen Delivery Me thod BiPAP 11/23/24 23:23 Oxygen Flow Rate 5 11/23/24 22:50 Fraction of Inspir ed Oxygen 40 11/23/24 23:10 MDM - SOB/Dyspnea Medical Decision Making Patient presented by ambulance in acute respiratory distress, no home use of O2. Here was placed on BiPAP to maintain oxygenation greater than 90%. No leukocytosis with her lab work, viral swab was negative. ABG showing compensated respiratory acidosis. She has no diagnosis of COPD or asthma and her history, she does have a history of A-fib and family in the room states that she recently was stopped on her Xarelto. Chest x-ray showing mild pulmonary edema/interstitial pneumonia. EKG showing atrial fibrillation with no acute ST segment changes, and normal rate. BNP elevated to 2317, lactic acid and procalcitonin are both normal. Mild troponin elevation, 2-hour troponin pending at this time. CTA showing no acute PE or significant right heart strain, and confirming findings of pulmonary edema. I spoke to hospitalist, Dr. Turpin, who accepts the patient into the hospital for acute hypoxic hypercapnic respiratory failure and likely patient will have cardiology consulted. Informed family of this plan, they agree, patient still 93% on BiPAP. I informed Dr. Benites of this patient's case and current findings, who will put in admit orders at this time. Lab Data 11/23/24 22:00 11/23/24 22:00 Labs/Radiology: Radiology Impressions Chest X-Ray 11/23/24 22:15 IMPRESSION: Findings suggestive of mild pulmonary edema or interstitial pneumonia. Chest CTA 11/23/24 22:59 IMPRESSION: 1. No acute pulmonary embolus or evidence of acute right heart strain. 2. Moderate to severe three-vessel coronary atherosclerosis. 3. Findings suggestive of mild pulmonary edema . Superimposed infectious/inflammatory etiology is not excluded. Laboratory Results WBC 9.17 10^3/uL (3.29-11.43) 11/23/24 22:00 RBC 4.22 10^6/uL (3.85-5.65) 11/23/24 22:00 Hgb 11.70 g/dL (11.27-16.99) 11/23/24 22:00 Hct 39.6 % (36-47) 11/23/24 22:00 MCV 93.8 fl (85-98) 11/23/24 22:00 MCH 27.7 pg (27-33) 11/23/24:00 MCHC 29.5 g/dL (30-55) L 11/23/24:00 RDW 14.6 % (12.1-15.1) 11/23/24 22:00 Plt Count 238 10^3/cmm (157-399) 11/23/24 22:00 MPV 10.2 fL (7.4-10.4) 11/23/24:00 Neut % (Auto) 66.3 % 11/23/24 22:00 Lymph % (Auto) 16.6 % 11/23/24 22:00 Walton % (Auto) 12.9 % 11/23/24 22:00 Eos % (Auto) 2.0 % 11/23/24 22:00 Baso % (Auto) 0.7 % 11/23/24 22:00 Neut # (Auto) 6.09 10^3/uL (1.8-7.7) 11/23/24 22:00 Lymph # (Auto) 1.5 10^3/uL (0.8-4.8) 11/23/24 22:00 Walton # (Auto) 1.2 10^3/uL (0.2-0.9) H 11/23/24 22:00 Eos # (Auto) 0.2 10^3/uL (0.0-0.8) 11/23/24 22:00 Baso # (Auto) 0.1 10^3/uL (0.0-0.1) 11/23/24 22:00 Nucleated RBC % (auto) 0.3 % 11/23/24 22:00 Nucleated RBCs # 0.0 /100WBC 11/23/24 22:00 Specimen Type Arterial 11/23/24 22:53 Sample Site Brachial, right 11/23/24 22:53 ABG pH 7.33 (7.35-7.45) L 11/23/24 22:53 ABG pCO2 62.9 mmHg (35-45) H* 11/23/24 22:53 ABG pO2 90.3 mmHg (80.0-100.0) 11/23/24 22:53 ABG HCO3 33.1 mmol/L (22-26) H 11/23/24 22:53 ABG O2 Saturation 97.0 11/23/24 22:53 ABG Base Excess 5.5 mmol/L (-2.0-2.0) H 11/23/24 22:53 Daquan Test N/a 11/23/24 22:53 A-a O2 Gradient 0.0 mmHg (5-10) L 11/23/24 22:53 Hematocrit 37.0 % (37-47) 11/23/24 22:53 Hgb O2 Saturation 94.8 % (95-100) L 11/23/24 22:53 Carboxyhemoglobin 2.2 %THgb (0.4-20.1) 11/23/24 22:53 Methemoglobin 0.1 % (0.4-1.5) L 11/23/24 22:53 Total Hemoglobin 12.1 g/dL (12-16) 11/23/24 22:53 Sodium 141.0 mmol/L (131-143) 11/23/24 22:53 Potassium 4.9 mmol/L (3.5-5.0) 11/23/24 22:53 Glucose 175.0 mg/dL (70-115) H 11/23/24 22:53 Ionized Calcium 1.4 mmol/L (1.1-1.4) 11/23/24 22:53 O2 Delivery Device Nc 11/23/24 22:53 O2 Liters/Min 5.0 % 11/23/24 22:53 Distributed Generation Project Manager ID [email or web address] 11/23/24 22:53 Sodium 137 mmol/L (136-145) 11/23/24 22:00 Potassium 4.9 mmol/L (3.5-5.1) 11/23/24 22:00 Chloride 98 mmol/L (98-107) 11/23/24 22:00 Carbon Dioxide 30 mmol/L (22-29) H 11/23/24 22:00 Anion Gap 13.9 (5-19) 11/23/24 22:00 BUN 25 mg/dL (8-23) H 11/23/24 22:00 Creatinine 0.8 mg/dL (0.5-0.9) 11/23/24 22:00 GFR Calculation Not Reportable 11/23/24 22:00 Glucose 191 mg/dL (65-115) H 11/23/24 22:00 Calculated Osmolality 294 mOsm/kg (285-295) 11/23/24 22:00 Lactic Acid 1.5 mmol/L (0.5-2.2) 11/23/24 22:00 Calcium 9.7 mg/dL (8.5-10.5) 11/23/24 22:00 Total Bilirubin 0.8 mg/dL (0.15-1.2) 11/23/24 22:00 AST 32 U/L (0-32) 11/23/24 22:00 ALT 53 U/L (0-33) H 11/23/24 22:00 Alkaline Phosphatase 55 U/L (35-105) 11/23/24 22:00 Troponin T Baseline 36 ng/L (0-10) H 11/23/24 22:00 NT-Pro-B Natriuret Pep 2317 pg/mL (0-450) H 11/23/24 22:00 Total Protein 6.6 g/dL (6.6-8.7) 11/23/24 22:00 Albumin 3.8 g/dL (3.5-5.2) 11/23/24 22:00 Globulin 2.8 g/dL (1.3-4.6) 11/23/24 22:00 Procalcitonin 0.18 ng/mL (0-0.5) 11/23/24 22:00 Influenza A (PCR) Negative (Negative) 11/23/24 22:20 Influenza Type B (PCR) Negative (Negative) 11/23/24 22:20 RSV (PCR) Negative (Negative) 11/23/24 22:20 SARS-CoV-2 (PCR) Negative (Negative) 11/23/24 22:20 All radiology interpretation(s) finalized by discharge Discharge Plan Discharge Patient Disposition: Admitted As Inpatient Clinical Impression: Acute respiratory failure with hypoxia and hypercapnia Condition: Stable Coding Level of Care Code ED Escrow Agent for Darrell Zavaleta
[2024-11-23 22:50] VITALS: PULSE 58; RESP 24; O2SAT 93
[2024-11-23 22:54] LABS: Troponin(5th) Baseline 36 ng/L (0-10)
[2024-11-23 22:56] LABS: Alanine Aminotransferase 53 U/L (0-33); Albumin Level 3.8 g/dL (3.5-5.2); Alkaline Phosphatase 55 U/L (35-105); Anion Gap 13.9 (5-19); Aspartate Amino Transferase 32 U/L (0-32); Blood Urea Nitrogen 25 mg/dL (8-23); Calcium 9.7 mg/dL (8.5-10.5); Carbon Dioxide 30 mmol/L (22-29); Chloride 98 mmol/L (98-107); Creatinine Clr Calc Pharmacy 51.9217; Globulin 2.8 g/dL (1.3-4.6); Glucose 191 mg/dL (65-115); Osmolality Calculated 294 mOsm/kg (285-295); Potassium 4.9 mmol/L (3.5-5.1); Sodium 137 mmol/L (136-145); Total Protein 6.6 g/dL (6.6-8.7)
[2024-11-23 22:57] LABS: Lactic Sepsis W/Reflex 1.5 mmol/L (0.5-2.2)
[2024-11-23 22:59] VITALS: PULSE 61
--- NOTE | 2024-11-23 22:59 | CTR_ITS ---
PROCEDURE INFORMATION: Exam: CTA Chest With Contrast Exam date and time: 11/24/2024 12:02 AM Age: 89 years old Clinical indication: Shortness of breath; Additional info: Sob/hypoxia TECHNIQUE: Imaging protocol: Computed tomographic angiography of the chest with contrast. Exam focused on the arteries. 3D rendering (Not supervised by radiologist): MIP and/or 3D reconstructed images were created by the technologist. Radiation optimization: All CT scans at this facility use at least one of these dose optimization techniques: automated exposure control; mA and/or kV adjustment per patient size (includes targeted exams where dose is matched to clinical indication); or iterative reconstruction. Contrast material: OMNI 350; Contrast volume: 100 ml; Contrast route: INTRAVENOUS (IV); COMPARISON: CR (CHEST, ) 11/23/2024 10:18 PM RADIATION DOSE METRICS: Total DLP (mGy-cm): 578.55 FINDINGS: Pulmonary arteries: No acute pulmonary embolus is identified. Aorta: Moderate atherosclerotic changes of the thoracic aorta and its major branch vessels is noted. Lungs: Respiratory motion obscures evaluation of the imaged lung bases. Central and bibasilar predominant ground-glass opacities noted. Mild interlobular septal thickening is noted inferiorly. Pleural spaces: Unremarkable. No pneumothorax. No pleural effusion. Heart: The heart is normal in size. Mitral annular calcifications are seen. Aortic valve calcifications are noted. No pericardial effusion. Coronary arteries: Moderate to severe three-vessel coronary atherosclerosis present. Lymph nodes: Unremarkable. No enlarged lymph nodes. Bones/joints: Degenerative joint and disc disease is seen in the imaged spine. Postoperative changes from anterior cervical fusion and discectomy are noted at C5-C6. Surgical components appear well aligned. No evidence of failure/loosening. No acute periprosthetic fracture. Soft tissues: Unremarkable. CT/CT angio chest PE protcl [id number] IMPRESSION: 1. No acute pulmonary embolus or evidence of acute right heart strain. 2. Moderate to severe three-vessel coronary atherosclerosis. 3. Findings suggestive of mild pulmonary edema . Superimposed infectious/inflammatory etiology is not excluded.
[2024-11-23 23:03] LABS: Procalcitonin 0.18 ng/mL (0-0.5)
[2024-11-23 23:04] LABS: ABG PCO2 62.9 mmHg (35-45); ABG PH Result 7.33 (7.35-7.45); Alveolar-Arterial Oxygen Gradi 0.0 mmHg (5-10); Arterial Blood Gas Hematocrit 37.0 % (37-47); Blood Gas LPM 5.0 %; Blood Gas Sample Site Brachial, right; Blood Gas Sample Type Arterial; Carboxyhemoglobin 2.2 %THgb (0.4-20.1); Glucose Level-ABG 175.0 mg/dL (70-115); HCO3 ABG 33.1 mmol/L (22-26); Ionized Calcium Level - ABG 1.4 mmol/L (1.1-1.4); Methemoglobin 0.1 % (0.4-1.5); Oxygen Saturation ABG 97.0; PO2 ABG 90.3 mmHg (80.0-100.0); Potassium Level - ABG 4.9 mmol/L (3.5-5.0); Sodium Level - ABG 141.0 mmol/L (131-143)
[2024-11-23 23:10] VITALS: PULSE 56; RESP 20; O2SAT 93
[2024-11-23 23:15] LABS: Respiratory Syncytial Virus Ce NEGATIVE (Negative); SARS-CoV-2 PCR NEGATIVE (Negative)
[2024-11-23 23:23] VITALS: PULSE 56; RESP 18; O2SAT 93
[2024-11-23 23:45] LABS: NT Pro B Type Natriuretic Pept 2317 pg/mL (0-450)
[2024-11-24] VITALS (13 sets, daily range): BP systolic 124–169; BP diastolic 55–93; PULSE 53–65; RESP 16–28; TEMP 36.4–37.1; O2SAT 92–98; BMI 36.5; BMI 36.9
[2024-11-24] MEDS: iohexol 350 mg/mL 500 mL Btl (per mL) IV (00:34)
[2024-11-24 00:54] LABS: Troponin 5 2HR 36.38 ng/L (0-10); Troponin 5 2HR Delta 0.38 ABS# (0-10)
--- NOTE | 2024-11-24 01:16 | USCV_ITS ---
Deon Nicolle Age: 89 Gender: F : 1935 Exam Date: 11/24/2024 14:53 Ordering Phys: Morgan Turpin MD Technologist: Exam Location: [facility] – [place] Indication: SoB BP: 138 / 81 HR: 100 Rhythm: Sinus Technical Quality: Adequate MEASUREMENTS (Male / Female) Normal Values 2D ECHO LV Diastolic Diameter PLAX 4.2 cm 4.2 - 5.9 / 3.9 - 5.3 cm IVS Systolic Thickness 2.1 cm LVPW Systolic Thickness 1.7 cm LVOT Diameter 2.0 cm LV Ejection Fraction 2D Teich 75.8 % LV Ejection Fraction MOD 4C 60.7 % LV Ejection Fraction MOD 2C 63.9 % LV Ejection Fraction 2C AL 59.9 % LA Diameter 3.8 cm RA Systolic Volume 4C AL 43.6 ml RA Systolic Volume 4C MOD 41.8 ml Aorta at Sinotubular Diameter 3.2 cm M-MODE LV Ejection Fraction MM Teich 71.3 % IVS Diastolic Thickness MM 1.8 cm 0.6 - 1.0 / 0.6 - 0.9 cm IVS Systolic Thickness MM 1.9 cm LVPW Diastolic Thickness MM 1.7 cm 0.6 - 1.0 / 0.6 - 0.9 cm LVPW Systolic Thickness MM 2.8 cm LA Ao Ratio MM 1.1 AV Cusp Separation MM 1.8 cm DOPPLER AV Peak Velocity 117.0 cm/s LVOT Peak Velocity 129.0 cm/s AV Area Cont Eq vti 3.0 cm squared AV Area Cont Eq pk 3.6 cm squared MV Peak Velocity 165.0 cm/s MV Area PHT 3.4 cm squared Mitral E to A Ratio 1.2 TV Peak Velocity 155.0 cm/s TR Peak Velocity 162.0 cm/s TR Peak Gradient 10.5 mmHg TV Peak E Velocity 92.0 cm/s PV Peak Velocity 117.0 cm/s FINDINGS Left Ventricle Normal left ventricular size, systolic function and wall thickness, with no regional wall motion abnormalities. Left ventricular ejection fraction is estimated at 63%. Indeterminate diastolic function due to severe mitral annular calcification. Right Ventricle Normal right ventricular size and systolic function. Normal right ventricular systolic pressure. Right Atrium Normal right atrial size. Left Atrium Normal left atrial size. IA Septum Normal appearance of the interatrial septum. Mitral Valve Severe mitral annular calcification. No mitral valve regurgitation. Mild mitral valve stenosis. Mitral valve mean gradient is 4.1 mmHg. Aortic Valve No aortic valve stenosis. No aortic valve regurgitation. Tricuspid Valve Trace tricuspid valve regurgitation. Pulmonic Valve No pulmonary valve stenosis. No pulmonary valve regurgitation. Pericardium No pericardial effusion. Aorta Normal size aortic root and proximal ascending aorta. IVC Inferior vena cava not visualized. CONCLUSIONS 1. Normal biventricular systolic function 2. Mild mitral valve stenosis Arias Deras MD, FACC (Electronically Signed) Final Date: 24 November 2024 21:06 S
--- NOTE | 2024-11-24 01:16 | PM.HP ---
Providers/Chief Complaint Admitting Physician: Morgan Turpin MD Primary Care Provider: Savage Pendleton DO Chief Complaint: sob History of Present Illness As per the previous chart review and the patient Nicolle Chavarria is a 89 year old female With past medical history of atrial fibrillation hypertension came to emergency department due to acute shortness of breath. The patient does not require home oxygen however when she came to ER she was found to have shortness of breath that required 4 L of oxygen through nasal cannula. She was alert and oriented. She did not report any fevers or chills, no recent abdominal pain, chest pain, chest pressure, any lower leg swellings. No history of syncope. No change in her bowel or urinary habits. The patient is compliant to her medications. no recent vaccinations or any sick contact or any travel history. no orthopnea or PND. Review of Systems General: Reports: 10 or more systems reviewed and unremarkable except in HPI and below Medications/Allergies Home Medications ?Medication ?Instructions ?Recorded ?Confirmed ?Last Taken ?Type atorvastatin 20 mg tablet 20 mg PO DAILY 10/05/20 11/24/24 11/23/24 History carvedilol 3.125 mg tablet 3.125 mg PO BID 10/05/20 11/24/24 11/23/24 History citalopram 20 mg tablet 20 mg PO DAILY 10/05/20 11/24/24 11/23/24 History fenofibrate 160 mg tablet 160 mg PO DAILY 10/05/20 11/24/24 11/23/24 History losartan 25 mg tablet 25 mg PO DAILY 10/05/20 11/24/24 11/23/24 History spectrum afo with lateral T strap #1 ea 10/05/20 11/24/24 Unknown Rx trazodone 50 mg tablet 50 mg PO BEDTIME 01/22/22 11/24/24 11/23/24 History aspirin 81 mg tablet,delayed 81 mg PO DAILY 01/24/23 11/24/24 11/23/24 History release glipizide 5 mg tablet, extended 5 mg PO DAILY 01/24/23 11/24/24 11/23/24 History release 24 hr kaozixdj-brs-vvwmc ac 400 1 tab PO DAILY 01/24/23 11/24/24 11/23/24 History mcg-calcium carb 500 mg-vit K1 20 mcg tablet (Women's 50 Plus Multivitamin) felizrole 1 mg tablet 3 mg PO DAILY 01/24/23 11/24/24 11/23/24 History tramadol 50 mg tablet 50 mg PO Q6H PRN pain #20 tabs 04/10/23 11/24/24 11/23/24 Rx CAM BOOT to right #1 ea 11/25/23 11/24/24 Unknown Rx ASO #1 ea 01/07/24 11/24/24 Unknown Rx Allergies Allergy/AdvReac Type Severity Reaction Status Date / Time codeine Allergy Mild Rash Verified 01/30/24 14:17 hydrocodone Allergy Mild ALGY-Rash Verified 01/30/24 14:17 PFSH Acute PFSH: Medical History (Updated 11/24/24 @ 06:28 by Morgan Turpin MD) Depression with anxiety Hyperlipidemia, unspecified Gastro-esophageal reflux disease without esophagitis Diverticulitis Hypertension Atrial fibrillation Surgical History H/O: hysterectomy Hx of cholecystectomy H/O shoulder surgery Social History Smoking and tobacco/nicotine status: former use of tobacco/nicotine Alcohol intake: current Alcohol intake frequency: holidays/special occasions only Vitals/I&O/Wt Last Vital Signs Temp 98.6 F 11/23/24 22:08 Pulse 61 11/24/24 01:06 Resp 18 11/23/24 23:23 BP 171/93 11/23/24 22:19 Pulse Ox 92 11/24/24 01:06 O2 Del Method BiPAP 11/23/24 23:23 O2 Flow Rate 5 11/23/24 22:50 FiO2 40 11/24/24 01:06 11/23/24 11/23/24 11/24/24 14:59 22:59 06:59 Intake Total 0 / 0 Balance 0 / 0 Weight last 48 hrs Weight 83.915 kg Physical Exam Narrative: General: Alert and oriented, lying comfortably without any distress and on bipap able to speak in full sentences HEENT: Normocephalic, atraumatic, grossly unremarkable exam Cardio: normal rate rhythm, normal S1-S2 without any murmurs, rubs, or gallops and JVD normal Respiratory: normal vascular breathing on auscultation without wheezes, mild basal crepts appreciated however exam limited due to thick chest wall, GI: Abdomen soft, nontender, nondistended, normoactive bowel sounds present all 4 quadrants, Neuro: intact cranial nerves motor and sensory and cerebellar/coordination function without any focal neurological deficit Behavior: Appropriate and cooperative Extremities: Adequate palpable pulses, trace pedal edema Data 11/23/24 22:00 11/23/24 22:00 Micro: Microbiology 11/23/24 22:40 Blood Culture - Preliminary Blood SPECIMEN COLLECTED 11/23/24 22:35 Blood Culture - Preliminary Blood SPECIMEN COLLECTED A&P Assessment and plan 1. Acute respiratory failure with hypoxia and hypercapnia: ABgs showed hypercapnia of 62.9 with pred resp acidsosis, no previous sleep apnea or OHS history of cpap use, bipap at night high pro bnp: ~2300, Echo telemetry repeat ABG No signs of infection, therefore monitor vitals and no indication of antibiotics at the moment 2. Hypertension: Resume home medications Losartan 25 daily Carvedilol 3.125 mg twice daily 3. Frequent PVCs: Patient EKGs reviewed shows some element of PVCs, history mention atrial fibrillation but did not find any previous notes or history of any anticoagulation Patient on carvedilol 3.125 mg twice daily and to continue Telemetry Follow echo Patient on baby aspirin however could not find any previous documentation for indication for aspirin?? 4. Gastro-esophageal reflux disease without esophagitis: PPI daily 5. Hyperlipidemia, unspecified: resume home medications, atorvastatin 20mg and fenofibrate 160mg daily 6. Depression with anxiety: resume home medications, citalopram 20mg tablet and trazodone 50mg at bedtime PDMP PDMP Reviewed: Not Reviewed Attestations Medical Necessity Statement*: Nicolle Chavarria's hospital stay will require greater than 2 midnights for management of acute hypoxic hypercapneic resp failure Time Spent in Patient Care: 16 - 35 minutes (>than 50% of time spent in counselling and/or direct pt care on unit). Other Attestations: Patient condition has been discussed at length with the patient/family, I have independently reviewed the chart labs imaging/diagnostics/EKG. the goals of care and code status with the patient/family/NOK/legal patient accounting representative, and documented accordingly. The patient further prefers to have her kids involved at the time when she clinically deteriorates and to discuss about code. The patient/family has been informed about the current condition and further plan of care. Agreed with the plan of care and understood without any language barrier. Every effort was made to ensure accuracy of cooking chef. Any obvious errors or omissions should be clarified with the author of the document. Coding Level of Care Code 37257 Diagnoses Acute respiratory failure with hypoxia and hypercapnia J96.01; J96.02 Hypertension I10 Frequent PVCs I49.3 Gastro-esophageal reflux disease without esophagitis K21.9 Hyperlipidemia, unspecified E78.5 Depression with anxiety F41.8
[2024-11-24 03:41] LABS: Glucose Urine UA Negative (Normal); Nitrate Urine Negative (Negative)
[2024-11-24 04:04] LABS: Add Urine Microscopic? YES; Specific Gravity, Urine 1.076 (1.005-1.030); UA Slide Review UA Slide Review Perf
[2024-11-24 04:51] LABS: Troponin 5 6HR 31.06 ng/L (0-10)
[2024-11-24 04:52] LABS: Troponin 5 6HR Delta -4.94 ng/L (0-12)
[2024-11-24 06:34] LABS: ABG PCO2 56.1 mmHg (35-45); ABG PH Result 7.36 (7.35-7.45); Alveolar-Arterial Oxygen Gradi 18.0 mmHg (5-10); Arterial Blood Gas Hematocrit 36.6 % (37-47); Blood Gas Allen Test Pos; Blood Gas Sample Site Radial, right; Blood Gas Sample Type Arterial; Carboxyhemoglobin 1.7 %THgb (0.4-20.1); Glucose Level-ABG 284.0 mg/dL (70-115); HCO3 ABG 31.4 mmol/L (22-26); Ionized Calcium Level - ABG 1.3 mmol/L (1.1-1.4); Methemoglobin 0.2 % (0.4-1.5); Oxygen Saturation ABG 96.0; PO2 ABG 80.3 mmHg (80.0-100.0); PO2 FiO2 Ratio Arterial Blood 200; Potassium Level - ABG 5.4 mmol/L (3.5-5.0); Sodium Level - ABG 137.0 mmol/L (131-143)
--- NOTE | 2024-11-24 06:40 | ECG_ITS ---
[facility] Test Date: 2024-11-24 Pat Name: Nicolle Chavarria Department: Room: 104 Gender: Female Import/Export Agent: : 1935 Requested By: Gigi Lo Order Number: [id number] Jama MD: Arias Deras M.D. Measurements Intervals Veyo Rate: 57 P: 34 WY: 239 QRS: -38 QRSD: 100 T: 54 QT: 441 QTc: 430 Interpretive Statements SINUS BRADYCARDIA WITH FIRST DEGREE AV BLOCK LEFT AXIS DEVIATION [QRS AXIS < -30] LOW QRS VOLTAGE IN PRECORDIAL LEADS [QRS DEFLECTION < 1.0 mV IN CHEST LEADS] INCOMPLETE RIGHT BUNDLE BRANCH BLOCK [90+ ms QRS DURATION, TERMINAL R IN V1/V2, 40+ ms S IN I/aVL/V4/V5/V6] ANTEROSEPTAL MYOCARDIAL INFARCTION , OF INDETERMINATE AGE [40+ ms Q WAVE IN V1-V4] Compared to ECG 11/23/2024 22:19:05 NO SIGNIFICANT CHANGE Electronically Signed On 11-25-2024 23:15:56 CDT by Arias Deras M.D. [email or web address]
[2024-11-24] MEDS: LOSARTAN 25 MG TABLET PO (06:44)
--- NOTE | 2024-11-24 11:22 | PC.NURSE ---
patients family member brought patient a little roller bag with some clothes to go home in, and a brush. patients family member also brought in a little orange purse for patient to keep at bedside. it has some ID cards in it.
--- NOTE | 2024-11-24 12:44 | PM.MISC ---
Miscellaneous Note Purpose of Documentation: No new complaints today. Reviewed imaging. CT of the chest and chest x-ray with bilateral infiltrates most concerning for pulmonary edema. Lasix 40 mg IV now. Closely monitor TANA. She has received losartan 25 mg daily, blood pressure trending towards hypertension with systolic between 150-170. Add hydralazine 10 mg IV every 6 hours as needed. Noted bradycardia with heart rate 47 at its lowest. Asymptomatic. Reduce carvedilol to 3.125 mg p.o. daily and closely monitor. Echocardiogram pending. CTA chest without signs of PE.
[2024-11-24] MEDS: FUROsemide 10 mg/mL SDV 4mL 40 MG IVP (13:08)
[2024-11-25 03:23] VITALS: BP 143/61; PULSE 60; RESP 13; TEMP 36.6; O2SAT 96
[2024-11-25 04:19] LABS: Hematocrit 35.4 % (36-47); Hemoglobin 10.70 g/dL (11.27-16.99); Mean Corpuscular HGB Conc 30.2 g/dL (30-55); Mean Corpuscular Hemoglobin 27.8 pg (27-33); Mean Corpuscular Volume 91.9 fl (85-98); Nucleated Red Blood Cells % 0.3 %; Platelet Count 244 10^3/cmm (157-399); Red Blood Count 3.85 10^6/uL (3.85-5.65); White Blood Count 9.11 10^3/uL (3.29-11.43)
[2024-11-25 04:32] LABS: Alanine Aminotransferase 43 U/L (0-33); Albumin Level 3.6 g/dL (3.5-5.2); Alkaline Phosphatase 68 U/L (35-105); Anion Gap 15.7 (5-19); Aspartate Amino Transferase 21 U/L (0-32); Blood Urea Nitrogen 42 mg/dL (8-23); Calcium 9.4 mg/dL (8.5-10.5); Carbon Dioxide 29 mmol/L (22-29); Chloride 97 mmol/L (98-107); Creatinine Clr Calc Pharmacy 37.4687; Globulin 2.7 g/dL (1.3-4.6); Glucose 148 mg/dL (65-115); Osmolality Calculated 297 mOsm/kg (285-295); Potassium 4.7 mmol/L (3.5-5.1); Sodium 137 mmol/L (136-145); Total Protein 6.3 g/dL (6.6-8.7)
[2024-11-25] MEDS: ATORVASTATIN 20 MG TABLET PO (05:36)
[2024-11-25] MEDS: LOSARTAN 25 MG TABLET PO (05:37)
[2024-11-25 06:00] VITALS: BMI 37.7
[2024-11-25 08:00] VITALS: BP 151/67; PULSE 67; RESP 19; TEMP 36.6; O2SAT 93
--- NOTE | 2024-11-25 09:51 | PC.CHAP ---
Pastoral Care Encounter/Spiritual Assessment Type of Contact [] Declined legal instructor visit [] Patient/Family/Request visit [] Outpatient visit [] Follow-up visit [] Physician referral [] Code/Alert [x] Routine visit [] Staff referral [] Actively dying [] Patient sleeping [] Family support [] [] Out of room [] Palliative care [] [] Receiving care in room [] Pre-surgical visit [] Trauma [] Long length of stay [] ICU visit [] Other: Relational/Emotional Strength [] Patient feels connected with others/family/visitors/staff [] Distress [] Loneliness/isolation [] Abandonment Spirituality of Patient [] Person of Luna [] Attends Sikhism of their [place] [] Believes in Prayer [] Reads Bible or Jew materials [] There are Spiritual issues to be addressed Senior Manager Asset Protection Interventions [] Prayer [] Active listening [] Non-anxious presence [] Spiritual/emotional support [] Crisis/trauma care [] Spiritual counseling [] Bereavement support [] Provided bereavement packet [] Provided Bible/devotional materials [] Provided toy/stuffed animal, coloring book to patient or family member [] Provided Communion [] Anointing/[place] [] Salvation [] Completed spiritual assessment [] Other: Impact on Illness or Injury [] Angry [] Fearful [] Anxious [] Often cries [] Exhaustion [] Unable to work [] Unable to attend sabianist [] Unable to walk/stand [] Unable to read [] Unable to drive [] Unable to eat/drink [] Unable to sleep [] Unable to be with family [] Patient intubated [] Other: Summary Time spent with patient
--- NOTE | 2024-11-25 09:51 | PC.CHAP ---
Pastoral Care Encounter/Spiritual Assessment Type of Contact [] Declined house worker general visit [] Patient/Family/Request visit [] Outpatient visit [] Follow-up visit [] Physician referral [] Code/Alert [x] Routine visit [] Staff referral [] Actively dying [] Patient sleeping [] Family support [] [] Out of room [] Palliative care [] [] Receiving care in room [] Pre-surgical visit [] Trauma [] Long length of stay [] ICU visit [x] Other:Declined prayer. GOOD VISIT WITH FAMILY. Relational/Emotional Strength [] Patient feels connected with others/family/visitors/staff [] Distress [] Loneliness/isolation [] Abandonment Spirituality of Patient [] Person of Luna [] Attends Taoism of their Luna [] Believes in Prayer [] Reads Bible or Rastafarian materials [] There are Spiritual issues to be addressed General Freight Agent Interventions [] Prayer [x] Active listening [x] Non-anxious presence [x] Spiritual/emotional support [] Crisis/trauma care [] Spiritual counseling [] Bereavement support [] Provided bereavement packet [] Provided Bible/devotional materials [] Provided toy/stuffed animal, coloring book to patient or family member [] Provided Communion [] Anointing/[place] [] Salvation [X] Completed spiritual assessment [] Other: Impact on Illness or Injury [] Angry [] Fearful [] Anxious [] Often cries [] Exhaustion [] Unable to work [] Unable to attend tenriism [] Unable to walk/stand [] Unable to read [] Unable to drive [] Unable to eat/drink [] Unable to sleep [] Unable to be with family [] Patient intubated [] Other: Summary Time spent with patient 5 MIN
[2024-11-25 12:00] VITALS: BP 173/76; PULSE 65; RESP 17; TEMP 36.8; O2SAT 93
[2024-11-25 14:00] VITALS: PULSE 100
[2024-11-25 16:00] VITALS: BP 154/57; PULSE 75; RESP 17; TEMP 36.7; O2SAT 91
[2024-11-25] MEDS: hyDRALAzine 20 mg/mL INJ 1 mL 10 MG IVP (16:09)
--- NOTE | 2024-11-25 17:02 | P.PN_ITS ---
Subjective 2 Subjective: Patient is noted to have diffuse wheezing today. Becoming short of breath. Transfer from bed to bedside commode. Medications: Reviewed: Yes Vitals/I&O/Wt Last Vital Signs Temp 98.1 F 11/25/24 16:00 Pulse 75 11/25/24 16:00 Resp 17 11/25/24 16:00 BP 154/57 11/25/24 16:00 Pulse Ox 91 11/25/24 16:00 O2 Del Method Nasal Cannula 11/25/24 03:23 O2 Flow Rate 3.5 11/25/24 03:23 FiO2 40 11/24/24 13:34 11/25/24 11/25/24 11/25/24 06:59 14:59 22:59 Intake Total 480 / 480 Output Total 280 / 280 Balance 200 / 200 Weight last 48 hrs Weight 99.7 kg Weight 97.6 kg Weight 96.5 kg Weight 83.915 kg Physical Exam 2 Narrative: General: No acute distress, AO x1 HEENT: PERRLA, pupils bilaterally equal and reactive, pallors not present Chest: Wheezing to auscultation bilaterally CVS: S1-S2 regular, no murmurs, no tachycardia, no gallops, no rubs Abdomen: Soft, nontender, no organomegaly, bowel sounds present Neuro: No focal deficits, no facial deformity, AO x3, power 5/5 in all limbs Data 11/25/24 03:38 11/25/24 03:38 Micro: Microbiology 11/23/24 22:40 Blood Culture - Preliminary Blood NEGATIVE TO DATE 11/23/24 22:35 Blood Culture - Preliminary Blood NEGATIVE TO DATE A&P Assessment and plan 1. Acute respiratory failure with hypoxia and hypercapnia: ABgs showed hypercapnia of 62.9 with pred resp acidsosis, no previous sleep apnea or OHS history of cpap use, bipap at night high pro bnp: ~2300, Echo telemetry repeat ABG No signs of infection, therefore monitor vitals and no indication of antibiotics at the moment 2. Hypertension: Resume home medications Losartan 25 daily Carvedilol 3.125 mg twice daily 3. Frequent PVCs: Patient EKGs reviewed shows some element of PVCs, history mention atrial fibrillation but did not find any previous notes or history of any anticoagulation Patient on carvedilol 3.125 mg twice daily and to continue Telemetry Follow echo Patient on baby aspirin however could not find any previous documentation for indication for aspirin?? 4. Gastro-esophageal reflux disease without esophagitis: PPI daily 5. Hyperlipidemia, unspecified: resume home medications, atorvastatin 20mg and fenofibrate 160mg daily 6. Depression with anxiety: resume home medications, citalopram 20mg tablet and trazodone 50mg at bedtime Plan: November 25, 2024 Patient noted to be wheezing today. Short of breath and moving from bed to the bedside commode. Add DuoNeb budesonide inhalation. Start steroids methylprednisolone 40 mg IV every 8 hours. Add ceftriaxone and azithromycin for possibility of atypical pneumonia. Holding Lasix today given creatinine bump to 1.2. In part likely contributed by contrast. Hold losartan. Clinically appearing to be euvolemic today. Echocardiogram shows EF of 63%. Indeterminant diastolic function due to severe mitral annular calcification. PDMP PDMP Reviewed: Not Reviewed Attestations 2 Medical Necessity Statement*: Start steroids, scheduled nebulization and antibiotics. Coding Level of Care Code Acute Code for [facility] Diagnoses Acute respiratory failure with hypoxia and hypercapnia J96.01; J96.02 Hypertension I10 Frequent PVCs I49.3 Gastro-esophageal reflux disease without esophagitis K21.9 Hyperlipidemia, unspecified E78.5 Depression with anxiety F41.8
[2024-11-25] MEDS: cefTRIAXone 1,000 mg SDV 1000 MG IVP (17:33)
[2024-11-25 17:34] LABS: ABG PCO2 53.5 mmHg (35-45); ABG PH Result 7.41 (7.35-7.45); Arterial Blood Gas Hematocrit 37.5 % (37-47); Blood Gas LPM 3.0 %; Blood Gas Operator Identificat glc; Blood Gas Sample Site Brachial, left; Blood Gas Sample Type Arterial; HCO3 ABG 33.6 mmol/L (22-26); PO2 ABG 69.2 mmHg (80.0-100.0); PO2 FiO2 Ratio Arterial Blood 216
[2024-11-25] MEDS: methylPREDNISolone sod succ 40 mg/mL INJ IVP (17:34)
[2024-11-25 19:51] VITALS: BP 159/59; PULSE 65; RESP 21; TEMP 36.6; O2SAT 91
[2024-11-25 20:02] LABS: Coronavirus 229E,HKU1,NL63,OC4 Not Detected (NOT DETECT); Parainfluenza Virus Type 1 Not Detected (NOT DETECT); Parainfluenza Virus Type 2 Not Detected (NOT DETECT); Parainfluenza Virus Type 3 Not Detected (NOT DETECT); Parainfluenza Virus Type 4 Not Detected (NOT DETECT); SARS-COV-2 Not Detected (NOT DETECT)
[2024-11-26] VITALS (8 sets, daily range): BP systolic 136–195; BP diastolic 75–86; PULSE 58–77; RESP 14–24; TEMP 36.6–36.7; O2SAT 86–96
[2024-11-26] MEDS: methylPREDNISolone sod succ 40 mg/mL INJ IVP ×2 (01:58→08:14)
[2024-11-26 03:35] LABS: Hematocrit 40.0 % (36-47); Hemoglobin 12.10 g/dL (11.27-16.99); Mean Corpuscular HGB Conc 30.3 g/dL (30-55); Mean Corpuscular Hemoglobin 27.9 pg (27-33); Mean Corpuscular Volume 92.2 fl (85-98); Nucleated Red Blood Cells % 0 %; Platelet Count 281 10^3/cmm (157-399); Red Blood Count 4.34 10^6/uL (3.85-5.65); White Blood Count 7.90 10^3/uL (3.29-11.43)
[2024-11-26 04:01] LABS: Alanine Aminotransferase 42 U/L (0-33); Albumin Level 3.9 g/dL (3.5-5.2); Alkaline Phosphatase 66 U/L (35-105); Anion Gap 19.1 (5-19); Aspartate Amino Transferase 20 U/L (0-32); Blood Urea Nitrogen 36 mg/dL (8-23); Calcium 9.8 mg/dL (8.5-10.5); Carbon Dioxide 29 mmol/L (22-29); Chloride 96 mmol/L (98-107); Creatinine Clr Calc Pharmacy 45.4880; Globulin 3.1 g/dL (1.3-4.6); Glucose 226 mg/dL (65-115); Osmolality Calculated 303 mOsm/kg (285-295); Potassium 5.1 mmol/L (3.5-5.1); Sodium 139 mmol/L (136-145); Total Protein 7.0 g/dL (6.6-8.7)
[2024-11-26] MEDS: ATORVASTATIN 20 MG TABLET PO (04:38)
[2024-11-26] MEDS: LOSARTAN 25 MG TABLET PO (04:38)
[2024-11-26] MEDS: hyDRALAzine 20 mg/mL INJ 1 mL 10 MG IVP (09:37)
--- NOTE | 2024-11-26 12:25 | PC.NURSE ---
Patient has home O2 eval ordered. Waiting results prior to discharge.
--- NOTE | 2024-11-26 15:08 | PM.DCS ---
Discharge Providers Date of Admission: 11/24/24 00:40 Date of Discharge: November 26, 2024 Attending Provider at Admission: Morgan Turpin MD Attending Provider at Discharge: Amee Noble MD Primary Care Provider: Savage Pendleton DO Diagnoses at Discharge Discharge Diagnosis 1. Acute respiratory failure with hypoxia and hypercapnia: 2. Hypertension: 3. Frequent PVCs: 4. Gastro-esophageal reflux disease without esophagitis: 5. Hyperlipidemia, unspecified: 6. Depression with anxiety: 7. COPD (chronic obstructive pulmonary disease): 8. Mitral valve stenosis: Reason for Visit Reason for Visit: sob Brief History: Nicolle Chavarria is a 89 year old female With past medical history of atrial fibrillation hypertension came to emergency department due to acute shortness of breath. The patient does not require home oxygen however when she came to ER she was found to have shortness of breath that required 4 L of oxygen through nasal cannula. no orthopnea or PND.ABG showed hypercapnia of 62.9 with pred resp acidsosis, no previous sleep apnea or OHS history of cpap use, she was placed on BiPAP upon admission and remained on it overnight. BNP was noted to be 2300. CTA of the chest was negative for PE. Showed bilateral infiltrates concerning for pulmonary edema versus atypical infection. She received IV Lasix 40 mg and diuresed well. However on 11/25/2024 she developed diffuse expiratory bilateral wheezing for which she was initiated on steroids and scheduled nebulization. Overall concern for perhaps undiagnosed COPD with exacerbation given hypercapnia upon admission.. PFTs have been ordered as outpatient to further assess this possibility. To be followed up with PCP and pulmonology referral if appropriate based on PFT. Additionally ordered for a sleep study. Echo showed mild mitral stenosis with a gradient of 4.1. Per chart there was a reported history of atrial fibrillation. Telemetry monitoring during hospital course did not show any A-fib. She was noted to have sinus bradycardia with heart rate as low as 42 at 1 point for which carvedilol was dose adjusted down from 3.125 mg twice daily to 3.125 mg daily. Her heart rate has been maintained between 56-90 since making this change. She is asymptomatic with the bradycardia. She improved with the above interventions and is being discharged today in improved condition with optimized inhalers, short course of p.o. prednisone, 40 mg Lasix as needed and referral to follow-up with cardiology and PCP as an outpatient. Event monitor was arranged at discharge given the history of A-fib which would be relevant with mitral stenosis as being valvular A-fib if present. Physical Exam Narrative: General: No acute distress, AO x3 HEENT: PERRLA, pupils bilaterally equal and reactive, pallors not present Chest: Normal vesicular breath sounds, no added sounds, equal good air entry bilaterally CVS: S1-S2 regular, no murmurs, no tachycardia, no gallops, no rubs Abdomen: Soft, nontender, no organomegaly, bowel sounds present Neuro: No focal deficits, no facial deformity, AO x3, power 5/5 in all limbs Discharge Data Studies Completed and Pending Completed Studies During Hospitalization Category Date Time Status CT angio chest PE protcl [id number] Stat Cat Scan 11/23/24 22:59 Completed XR chest 1V portable [id number] Stat Exams 11/23/24 22:15 Completed CV. echo complete* [id number] Stat Ultrasound 11/24/24 01:16 Completed Pending at discharge Category Date Time Status Blood Culture Stat Lab 11/23/24 22:40 Results Radiology Impressions Chest X-Ray 11/23/24 22:15 IMPRESSION: Findings suggestive of mild pulmonary edema or interstitial pneumonia. Chest CTA 11/23/24 22:59 IMPRESSION: 1. No acute pulmonary embolus or evidence of acute right heart strain. 2. Moderate to severe three-vessel coronary atherosclerosis. 3. Findings suggestive of mild pulmonary edema . Superimposed infectious/inflammatory etiology is not excluded. Laboratory Results WBC 7.90 10^3/uL (3.29-11.43) 11/26/24 03:10 RBC 4.34 10^6/uL (3.85-5.65) 11/26/24 03:10 Hgb 12.10 g/dL (11.27-16.99) 11/26/24 03:10 Hct 40.0 % (36-47) 11/26/24 03:10 MCV 92.2 fl (85-98) 11/26/24 03:10 MCH 27.9 pg (27-33) 11/26/24 03:10 MCHC 30.3 g/dL (30-55) 11/26/24 03:10 RDW 14.4 % (12.1-15.1) 11/26/24 03:10 Plt Count 281 10^3/cmm (157-399) 11/26/24 03:10 MPV 10.2 fL (7.4-10.4) 11/26/24 03:10 Neut % (Auto) 82.5 % 11/26/24 03:10 Lymph % (Auto) 9.1 % 11/26/24 03:10 Gibson % (Auto) 5.6 % 11/26/24 03:10 Eos % (Auto) 0.3 % 11/26/24 03:10 Baso % (Auto) 0.1 % 11/26/24 03:10 Neut # (Auto) 6.52 10^3/uL (1.8-7.7) 11/26/24 03:10 Lymph # (Auto) 0.7 10^3/uL (0.8-4.8) L 11/26/24 03:10 Gibson # (Auto) 0.4 10^3/uL (0.2-0.9) 11/26/24 03:10 Eos # (Auto) 0.0 10^3/uL (0.0-0.8) 11/26/24 03:10 Baso # (Auto) 0.0 10^3/uL (0.0-0.1) 11/26/24 03:10 Nucleated RBC % (auto) 0 % 11/26/24 03:10 Nucleated RBCs # 0.0 /100WBC 11/26/24 03:10 Specimen Type Arterial 11/25/24 17:22 Sample Site Brachial, left 11/25/24 17:22 ABG pH 7.41 (7.35-7.45) 11/25/24 17:22 ABG pCO2 53.5 mmHg (35-45) H 11/25/24 17:22 ABG pO2 69.2 mmHg (80.0-100.0) L 11/25/24 17:22 ABG PO2/FiO2 Ratio 216 11/25/24 17:22 ABG HCO3 33.6 mmol/L (22-26) H 11/25/24 17:22 ABG O2 Saturation 96.0 11/24/24 06:23 ABG Base Excess 7.4 mmol/L (-2.0-2.0) H 11/25/24 17:22 [place]an Test N/a 11/25/24 17:22 A-a O2 Gradient 18.0 mmHg (5-10) H 11/24/24 06:23 Hematocrit 37.5 % (37-47) 11/25/24 17:22 Hgb O2 Saturation 94.2 % (95-100) L 11/24/24 06:23 Carboxyhemoglobin 1.7 %THgb (0.4-20.1) 11/24/24 06:23 Methemoglobin 0.2 % (0.4-1.5) L 11/24/24 06:23 Total Hemoglobin 11.9 g/dL (12-16) L 11/24/24 06:23 Sodium 137.0 mmol/L (131-143) 11/24/24 06:23 Potassium 5.4 mmol/L (3.5-5.0) H 11/24/24 06:23 Glucose 284.0 mg/dL (70-115) H 11/24/24 06:23 Ionized Calcium 1.3 mmol/L (1.1-1.4) 11/24/24 06:23 O2 Delivery Device Nc 11/25/24 17:22 O2 Liters/Min 3.0 % 11/25/24 17:22 FiO2 32.0 % 11/25/24 17:22 Public Health Educator ID glc 11/25/24 17:22 Sodium 139 mmol/L (136-145) 11/26/24 03:10 Potassium 5.1 mmol/L (3.5-5.1) 11/26/24 03:10 Chloride 96 mmol/L (98-107) L 11/26/24 03:10 Carbon Dioxide 29 mmol/L (22-29) 11/26/24 03:10 Anion Gap 19.1 (5-19) H 11/26/24 03:10 BUN 36 mg/dL (8-23) H 11/26/24 03:10 Creatinine 1.0 mg/dL (0.5-0.9) H 11/26/24 03:10 GFR Calculation Not Reportable 11/26/24 03:10 Glucose 226 mg/dL (65-115) H 11/26/24 03:10 POC Glucose 255 mg/dL (70-110) H 11/26/24 11:17 Calculated Osmolality 303 mOsm/kg (285-295) H 11/26/24 03:10 Lactic Acid 1.5 mmol/L (0.5-2.2) 11/23/24 22:00 Calcium 9.8 mg/dL (8.5-10.5) 11/26/24 03:10 Phosphorus 2.9 mg/dL (2.5-4.5) 11/24/24 00:30 Total Bilirubin 0.6 mg/dL (0.15-1.2) 11/26/24 03:10 AST 20 U/L (0-32) 11/26/24 03:10 ALT 42 U/L (0-33) H 11/26/24 03:10 Alkaline Phosphatase 66 U/L (35-105) 11/26/24 03:10 Troponin T Baseline 36 ng/L (0-10) H 11/23/24 22:00 Troponin T 120 Minute 36.38 ng/L (0-10) H 11/24/24 00:30 Delta Troponin T 0.38 ABS# (0-10) 11/24/24 00:30 Troponin T Hi Sens 6Hr 31.06 ng/L (0-10) H 11/24/24 03:51 Troponin T Hi Sens 6Hr Delta -4.94 ng/L (0-12) L 11/24/24 03:51 NT-Pro-B Natriuret Pep 2317 pg/mL (0-450) H 11/23/24 22:00 Total Protein 7.0 g/dL (6.6-8.7) 11/26/24 03:10 Albumin 3.9 g/dL (3.5-5.2) 11/26/24 03:10 Globulin 3.1 g/dL (1.3-4.6) 11/26/24 03:10 Procalcitonin 0.18 ng/mL (0-0.5) 11/23/24 22:00 Urine Color Yellow (Yellow) 11/24/24 03:29 Urine Appearance Clear (CLEAR) 11/24/24 03:29 Urine pH 5.5 (5-7) 11/24/24 03:29 Ur Specific [place] 1.076 (1.005-1.030) H 11/24/24 03:29 Urine Protein 3+ (Negative) A 11/24/24 03:29 Urine Glucose (UA) Negative (Normal) 11/24/24 03:29 Urine Ketones Negative (Negative) 11/24/24 03: Urine Blood Non-haemolysed trace (Negative) 11/24/24 03: Urine Nitrate Negative (Negative) 11/24/24 03: Urine Bilirubin Negative (Negative) 11/24/24 03: Urine Urobilinogen 1.0 mg/dL (Negative) 11/24/24 03:29 Ur Leukocyte Esterase Negative (Negative) 11/24/24 03: Urine RBC 5-10 /hpf (0-2) H 11/24/24 03: Urine WBC None /hpf (0-5) 11/24/24 03: Ur Squamous Epith Cells 5-10 /hpf (0-5) H 11/24/24 03: Amorphous Sediment Not Reportable 11/24/24 03: Urine Bacteria None /hpf (NONE) 11/24/24 03: Adenovirus (PCR) Not detected (NOT DETECT) 11/25/24 17: C. pneumoniae DNA (PCR) Not detected (NOT DETECT) 11/25/24 17: Coronavirus 229E (PCR) Not detected (NOT DETECT) 11/25/24 17: Human Metapneumovir PCR Not detected (NOT DETECT) 11/25/24 17: Influenza A (H1) PCR Not detected (NOT DETECT) 11/25/24 17: Influenza A (PCR) Negative (Negative) 11/23/24 22:20 Influ A (H1/09) PCR Not detected (NOT DETECT) 11/25/24 17: Influenza A (H3) PCR Not detected (NOT DETECT) 11/25/24 17: Influenza Type A (PCR) Not detected (NOT DETECT) 11/25/24 17: Influenza Type B (PCR) Not detected (NOT DETECT) 11/25/24 17: M. pneumoniae (PCR) Not detected (NOT DETECT) 11/25/24 17: Parainfluenza 1 (PCR) Not detected (NOT DETECT) 11/25/24: Parainfluenza 2 (PCR) Not detected (NOT DETECT) 11/25/24 17: Parainfluenza 3 (PCR) Not detected (NOT DETECT) 11/25/24 17: Parainfluenza 4 (PCR) Not detected (NOT DETECT) 11/25/24 17:29 RSV (PCR) Negative (Negative) 11/23/24 22:20 RSV Type A (PCR) Not detected (NOT DETECT) 11/25/24 17:29 RSV Type B (PCR) Not detected (NOT DETECT) 11/25/24 17:29 Entero/Rhino (PCR) Not detected (NOT DETECT) 11/25/24 17:29 SARS-CoV-2 (PCR) Not detected (NOT DETECT) 11/25/24 17:29 Vitals Last Vital Signs Temp 97.8 F 11/26/24 12:00 Pulse 77 11/26/24 12:00 Resp 24 H 11/26/24 12:00 BP 136/77 11/26/24 12:00 Pulse Ox 86 L 11/26/24 12:25 O2 Del Method Nasal Cannula 11/26/24 07:50 O2 Flow Rate 3 11/26/24 12:25 FiO2 40 11/24/24 13:34 Discharge Plan Discharge Patient Disposition: Home Condition: Stable Prescriptions: New azithromycin 250 mg Tablet 500 mg PO DAILY 3 Days Qty: 3 0RF budesonide-formoterol [Symbicort] 160-4.5 mcg/actuation HFA aerosol inhaler 1 inh inhalation BID Qty: 10.2 0RF albuterol sulfate 1.25 mg/3 mL solution for nebulization 2.5 mg inhalation Q6H PRN (Reason: shortness of breath or wheezing) Qty: 75 0RF prednisone 20 mg tablet 20 mg PO BID 5 Days Qty: 10 0RF tiotropium bromide 18 mcg capsule, w/inhalation device 1 cap inhalation DAILY Qty: 30 0RF Rx Instructions: puncture 1 cap using device; one dose = 2 inhalations pantoprazole [Protonix] 40 mg tablet,delayed release (DR/EC) 40 mg PO DAILY 28 Days Qty: 30 0RF furosemide [Lasix] 40 mg tablet 40 mg PO DAILY PRN (Reason: edema or weight gain) Qty: 30 0RF Continued (DME) spectrum afo with lateral T strap See Rx Instructions .ROUTE .MEDSUPPLY Qty: 1 0RF Rx Instructions: As directed by ALBA&O atorvastatin 20 mg tablet 20 mg PO DAILY citalopram 20 mg tablet 20 mg PO DAILY fenofibrate 160 mg tablet 160 mg PO DAILY losartan 25 mg tablet 25 mg PO DAILY (DME) CAM BOOT to right See Rx Instructions .Route .MEDSUPPLY Qty: 1 0RF Rx Instructions: As directed (DME) ASO See Rx Instructions .Route .MEDSUPPLY Qty: 1 0RF Rx Instructions: As directed ropinirole 1 mg Tablet 3 mg PO DAILY glipizide 5 mg Tablet Extended Release 24hr 5 mg PO DAILY aspirin 81 mg Tablet,Delayed Release (Dr/Ec) 81 mg PO DAILY Women's 50 Plus Multivitamin 400 mcg-500 mg calcium-20 mcg Tablet 1 tab PO DAILY tramadol 50 mg tablet 50 mg PO Q6H PRN (Reason: pain) Qty: 20 0RF trazodone 50 mg tablet 50 mg PO BEDTIME Changed carvedilol 3.125 mg tablet 3.125 mg PO DAILY 30 Days Qty: 30 0RF Rx Instructions: must administer with a meal/food Discharge Order = DC NOW: Discharge Order (Routine); Ordered 11/26/24 Ordered By: Amee Noble Other Ambulatory Orders: DME: Nebulizer with Neb Kit (Order) Location: None Selected Ordered By: Amee Noble DME: Oxygen (Order) Location: None Selected Ordered By: Amee Noble Pulmonary Function Screen with Bronchodilator (Routine) Timeframe: 2 Days Facility: [facility] - Location: Respiratory Therapy Ordered By: Amee Noble MCT/Event Monitor 14 Days (Routine) Timeframe: 1 Day Facility: [facility] - Location: Radiology Ordered By: Amee Noble Sleep Study/Titration (Routine) Timeframe: 2 Weeks Facility: [facility] - Location: [facility] Ordered By: Amee Noble Referrals: [facility] [Outside] [facility] [place]] Savage Pendleton DO [Primary Care Provider, Family Practice] - 12/02/24 1:00 pm Arias Deras MD [Physician, Cardiology] - 12/24/24 9:00 am Referral Note: mitral stenosis , ? h/o A fib, event monitor on. 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 Discharge Diet: Cardiac Discharge Activity: Resume usual activity Patient Instructions: Albuterol (By breathing), Prednisone (By mouth), Azithromycin (By mouth), Budesonide (By breathing), Pantoprazole (By mouth), Tiotropium (By breathing), Opioid Safety, Patient Portal & Nader Instructions Discharge Attestations Time Spent in Discharge Care*: greater than 30 min Quality Metrics Clinical Quality Measures [ No reported AMI, CVA or VTE this stay] Coding Level of Care Code Acute Code for [facility] Diagnoses Acute respiratory failure with hypoxia and hypercapnia J96.01; J96.02 Hypertension I10 Frequent PVCs I49.3 Gastro-esophageal reflux disease without esophagitis K21.9 Hyperlipidemia, unspecified E78.5 Depression with anxiety F41.8 COPD (chronic obstructive pulmonary disease) J44.9 Mitral valve stenosis I05.0
--- NOTE | 2024-11-26 15:17 | PC.NURSE ---
Addendum entered by Cristina Bedoya RN 11/26/24 15:21: Patient received [id number] and portable concentrator prior to discharge. Original Note: Patient discharged to [facility]. [id number] at bedside. Instructed both on follow up appointments, new medication with changes and COPD. Patient and family verbalized complete understanding. Patient denies pain or needs. No distress observed. Patient taken by wheelchair to [employer] [facility] [employer] transport vehicle. Patient tolerated fair.
== END 2024-11-26 13:50 | disposition intermediate care facility (04) | DRG 189 ==
LOC: ER 11-24 01:08 → CSU 11-24 01:30
PROVIDERS: Admitting Provider Student in an Organized Health Care Education/Training Program; Emergency Provider Physician Assistant; PCP Electrodiagnostic Medicine; Visit Provider Student in an Organized Health Care Education/Training Program
DX: J96.02 Acute respiratory failure with hypercapnia (principal); J44.1 Chronic obstructive pulmonary disease with (acute) exacerbation; J96.01 Acute respiratory failure with hypoxia; I10 Essential (primary) hypertension; I49.3 Ventricular premature depolarization; K21.9 Gastro-esophageal reflux disease without esophagitis; E78.5 Hyperlipidemia, unspecified; F41.8 Other specified anxiety disorders; I05.0 Rheumatic mitral stenosis; I48.91 Unspecified atrial fibrillation; R00.1 Bradycardia, unspecified; Z79.82 Long term (current) use of aspirin
CPT/HCPCS: 36415; 36416; 36600; 71045; 71275; 80051; 80053; 81001; 82330; 82803; 82805; 82962; 83605; 83880; 84100; 84145; 84484; 85025; 87040; 87486; 87581; 87633; 87637; 93005; 93306; 94640; 94660; 94760; 96372; 96374; 99291; J0360; J0696; J1650; J1815; J1938; J2919; J7626; J9999; Q0144

== ENCOUNTER 2024-12-03 09:08 | Outpatient (CLI) | payer MEDICARE, OTHER, SELFPAY ==
[2024-12-03 09:29] VITALS: PULSE 79; RESP 18; O2SAT 93
== END 2024-12-03 09:09 | disposition home or self-care (01) ==
PROVIDERS: Family Provider Internal Medicine; PCP Electrodiagnostic Medicine; Visit Provider Student in an Organized Health Care Education/Training Program
DX: J44.9 Chronic obstructive pulmonary disease, unspecified (principal); R94.2 Abnormal results of pulmonary function studies
CPT/HCPCS: 94060; J7613

== ENCOUNTER 2024-12-15 18:57 | Inpatient (IN) | payer MEDICARE, OTHER, SELFPAY ==
[2024-12-15] VITALS (10 sets, daily range): BP systolic 111–203; BP diastolic 67–113; PULSE 64–85; RESP 16–22; TEMP 36.6; O2SAT 90–93; BMI 34.3
--- NOTE | 2024-12-15 19:04 | XRR_ITS ---
PROCEDURE INFORMATION: Exam: XR Chest Exam date and time: 12/15/2024 7:09 PM Age: 89 years old Clinical indication: Shortness of breath; Prior surgery; Surgery date: 6+ months; Surgery type: Cardaic stents TECHNIQUE: Imaging protocol: Radiologic exam of the chest. Views: 1 view. COMPARISON: CT angio chest PE protcl [id number] 11/24/2024 12:02 AM FINDINGS: Lungs: There are opacities in both lung bases nonspecific could represent atelectasis correlate clinically. Pleural spaces: There are small to moderate-sized pleural effusions present Heart/Mediastinum: There are findings of cardiomegaly pulmonary edema present Bones/joints: Patient is status post cervical spine fusion XR/XR chest 1V portable [id number] IMPRESSION: Findings of decompensated congestive heart failure pulmonary edema pleural effusions.
--- NOTE | 2024-12-15 19:04 | ECG_ITS ---
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 Measurements Intervals [place] Rate: 62 P: 13 OR: 230 QRS: 1 QRSD: 85 T: 43 QT: 378 QTc: 386 Interpretive Statements SINUS RHYTHM WITH FIRST DEGREE AV BLOCK WITH OCCASIONAL VENTRICULAR PREMATURE COMPLEXES LOW QRS VOLTAGE IN PRECORDIAL LEADS [QRS DEFLECTION < 1.0 mV IN CHEST LEADS] SEPTAL MYOCARDIAL INFARCTION , OF INDETERMINATE AGE [40+ ms Q WAVE IN V1/V2] Compared to ECG 11/24/2024 06:40:23 Ventricular premature complex(es) now present Sinus bradycardia no longer present Left-axis deviation no longer present Incomplete right bundle-branch block no longer present Myocardial infarct finding still present Electronically Signed On 12-15-2024 21:50:44 [employer] by Jil Antonio M.D. [email or web address]
--- NOTE | 2024-12-15 19:04 | W.ED.SOB ---
HPI - SOB/Dyspnea General: Chief Complaint: Shortness of Breath/Dyspnea Stated Complaint: sob Time Seen by Provider: 12/15/24 19:02 History of Present Illness: HPI Narrative: 89-year-old female with a history of COPD, depression, sleep apnea, GERD, chronic hypoxemic respiratory failure on 2 L nasal cannula at all times, hypertension, atrial fibrillation, who presents to the emergency room with shortness of breath. She was recently discharged after being treated for acute respiratory failure with hypoxemia and hypercapnia. This was thought to be a COPD exacerbation and possible pneumonia. Said she became acutely more short of breath today. She has increased oxygen requirements. Increased work of breathing. She did receive Solu-Medrol and breathing treatments on the ambulance. No chest pain. No altered mental status. She does have increased work of breathing and tachypnea. Related Data Home Medications ?Medication ?Instructions ?Recorded ?Confirmed atorvastatin 20 mg tablet 20 mg PO DAILY 10/05/20 11/24/24 citalopram 20 mg tablet 20 mg PO DAILY 10/05/20 11/24/24 fenofibrate 160 mg tablet 160 mg PO DAILY 10/05/20 11/24/24 losartan 25 mg tablet 25 mg PO DAILY 10/05/20 11/24/24 trazodone 50 mg tablet 50 mg PO BEDTIME 01/22/22 11/24/24 aspirin 81 mg tablet,delayed 81 mg PO DAILY 01/24/23 11/24/24 release glipizide 5 mg tablet, extended 5 mg PO DAILY 01/24/23 11/24/24 release 24 hr vitztfzc-qxp-jbfty ac 400 1 tab PO DAILY 01/24/23 11/24/24 mcg-calcium carb 500 mg-vit K1 20 mcg tablet (Women's 50 Plus Multivitamin) ropinirole 1 mg tablet 3 mg PO DAILY 01/24/23 11/24/24 Previous Rx's ?Medication ?Instructions ?Recorded spectrum afo with lateral T strap #1 ea 10/05/20 tramadol 50 mg tablet 50 mg PO Q6H PRN pain #20 tabs 04/10/23 CAM BOOT to right #1 ea 11/25/23 ASO #1 ea 01/07/24 albuterol sulfate 1.25 mg/3 mL 2.5 mg (6 mL) inhalation Q6H PRN 11/26/24 solution for nebulization shortness of breath or wheezing #75 mL budesonide-formoterol HFA 160 1 inh inhalation BID #10.2 grams 11/26/24 mcg-4.5 mcg/actuation aerosol inhaler (Symbicort) carvedilol 3.125 mg tablet 3.125 mg PO DAILY 30 days #30 tabs 11/26/24 furosemide 40 mg tablet (Lasix) 40 mg PO DAILY PRN edema or weight 11/26/24 gain #30 tabs pantoprazole 40 mg tablet,delayed 40 mg PO DAILY 4 weeks #30 tabs 11/26/24 release (Protonix) tiotropium bromide 18 mcg capsule 1 cap inhalation DAILY #30 11/26/24 with inhalation device inhalations Allergies Allergy/AdvReac Type Severity Reaction Status Date / Time codeine Allergy Mild Rash Verified 12/15/24 19:15 hydrocodone Allergy Mild ALGY-Rash Verified 12/15/24 19:15 Review of Systems Narrative: Constitutional symptoms: Negative except as documented in HPI. Skin symptoms: Negative except as documented in HPI. Eye symptoms: Negative except as documented in HPI. ENMT symptoms: Negative except as documented in HPI. Respiratory symptoms: Negative except as documented in HPI. Cardiovascular symptoms: Negative except as documented in HPI. Gastrointestinal symptoms: Negative except as documented in HPI. Genitourinary symptoms: Negative except as documented in HPI. Musculoskeletal symptoms: Negative except as documented in HPI. Neurologic symptoms: Negative except as documented in HPI. Psychiatric symptoms: Negative except as documented in HPI. Endocrine symptoms: Negative except as documented in HPI. PFSH ED PFSH: Medical History (Updated 12/15/24 @ 20:45 by Aaliyah Sotelo MD) Depression with anxiety Hyperlipidemia, unspecified Gastro-esophageal reflux disease without esophagitis Diverticulitis Hypertension Atrial fibrillation Surgical History H/O: hysterectomy Hx of cholecystectomy H/O shoulder surgery Social History Smoking and tobacco/nicotine status: former use of tobacco/nicotine Alcohol intake: current Alcohol intake frequency: holidays/special occasions only Physical Exam Narrative: EXAM NARRATIVE: General: Alert, moderate distress. Skin: Warm, dry. Head: Normocephalic, atraumatic. Neck: Supple, trachea midline. Eye: Extraocular movements are intact. Ears, nose, mouth and throat: Oral mucosa moist. Cardiovascular: Regular rate and rhythm, Normal peripheral perfusion. Respiratory: coarse, scattered wheeze, moderate increased wob. tachypnea, prolonged expiratory phase. breath sounds are equal, Symmetrical chest wall expansion. Gastrointestinal: Soft, Nontender, Non distended, Musculoskeletal: Normal ROM, no deformity. Neurological: Alert and oriented, No focal neurological deficit observed. Psychiatric: Cooperative, appropriate mood & affect. Course Vital Signs: Vital signs: Vital Signs Temperature 97.8 F 12/15/24 18:57 Pulse Rate 66 12/15/24 20:23 Respiratory Rate 22 H 12/15/24 20:23 Blood Pressure 168/113 12/15/24 20:23 Pulse Oximetry 90 12/15/24 20:23 Oxygen Delivery Me thod Nasal Cannula 12/15/24 18:57 Oxygen Flow Rate 5 12/15/24 18:57 MDM - SOB/Dyspnea Medical Decision Making Medical decision making: Patient's reason for coming to the emergency room: Shortness of breath Social determinants patient is retired. I reviewed the patient's medical record. 89-year-old female with a history of COPD, depression, sleep apnea, GERD, chronic hypoxemic respiratory failure on 2 L nasal cannula at all times, hypertension, atrial fibrillation, who presents to the emergency room with shortness of breath. She was recently discharged after being treated for acute respiratory failure with hypoxemia and hypercapnia. I reviewed the patient's current home meds Alternate historians: Patient gives sufficient history. EMS also provides history. Differential diagnosis: including but not limited to and based on the above HPI, review of systems and physical exam: Orders placed to evaluate differential diagnosis based on the above differential, HPI and physical exam Chest x-ray: Pulmonary edema and heart failure. Pleural effusions. This was reviewed and interpreted by myself the emergency room physician. I also reviewed the radiology report. EKG: Time 1915. Rate 62. Normal sinus rhythm, No ST-T changes, no ectopy, first degree AV Block, EP Interpretation. This was reviewed and interpreted by myself the ER physician at 1920 Lab Review: Laboratory results were reviewed and interpreted by myself the emergency room physician. No leukocytosis. No anemia. Stable mildly elevated renal function. Blood gas shows acute hypercapnic respiratory failure with a pH of 7.32 and a CO2 of 72. Oxygen saturation is 86% on 6 L nasal cannula. Assessment of risk: Level of risk: High risk patient. Multiple comorbidities. Hospitalization considerations: Patient is being admitted. Consultation: Dr. Mena was contacted. She request a CTA prior to admission. Wally Coleman will follow-up on the results of this. Assessment and plan: Acute on chronic hypoxemic respiratory failure Acute hypercapnic respiratory failure Congestive heart failure Pulmonary edema COPD with acute exacerbation ?IV Solu-Medrol, 3 updrafts, starting on BiPAP ?Increased oxygen requirements. Apparent pulmonary edema. I do not see any history of congestive heart failure. Perhaps flash pulmonary edema secondary to hypertension With recent admission to the hospital for pneumonia and a possible COPD exacerbation I cannot rule out that this might be a pneumonia and so I am treating her septic. I am holding off on extensive fluids. - 50 cc of fluid given now. If patient's blood pressure takes more fluids can be given but this appears to be pulmonary edema and not pneumonia at this point. -Broad-spectrum antibiotics were administered. -Sepsis quality measures. -Lactic acid with a reflex was ordered. -Blood cultures were ordered. ?I reevaluated the patient's volume status after sepsis fluids were given. -I discussed the patient with the hospitalist on-call who is admitting the patient. - Discussed findings and plan with patient. Answered any questions. - All laboratory values were reviewed and interpreted personally by myself, the ER physician - All imaging was reviewed and interpreted personally by myself, the ER physician. - Evaluation and treatment of this problem were appropriate in the emergency setting Critical Care: -I spent a total of 41 minutes of critical care time managing the patient, independent of any other practitioner. -The time involved in the performance of separately reportable procedures was not counted towards critical care time. Lab Data 12/15/24 19:19 12/15/24 19:19 Labs/Radiology: Radiology Impressions Chest X-Ray 12/15/24 19:04 IMPRESSION: Findings of decompensated congestive heart failure pulmonary edema pleural effusions. Laboratory Results WBC 7.68 10^3/uL (3.29-11.43) 12/15/24 19:19 RBC 3.76 10^6/uL (3.85-5.65) L 12/15/24 19:19 Hgb 10.50 g/dL (11.27-16.99) L 12/15/24 19:19 Hct 36.9 % (36-47) 12/15/24 19:19 MCV 98.1 fl (85-98) H 12/15/24 19:19 MCH 27.9 pg (27-33) 12/15/24 19:19 MCHC 28.5 g/dL (30-55) L 12/15/24 19:19 RDW 14.1 % (12.1-15.1) 12/15/24 19:19 Plt Count 196 10^3/cmm (157-399) 12/15/24 19:19 MPV 10.1 fL (7.4-10.4) 12/15/24 19:19 Neut % (Auto) 74.2 % 12/15/24 19:19 Lymph % (Auto) 11.1 % 12/15/24 19:19 [place] % (Auto) 8.7 % 12/15/24 19:19 Eos % (Auto) 4.0 % 12/15/24 19:19 Baso % (Auto) 0.7 % 12/15/24 19:19 Neut # (Auto) 5.70 10^3/uL (1.8-7.7) 12/15/24 19:19 Lymph # (Auto) 0.9 10^3/uL (0.8-4.8) 12/15/24 19:19 [place]erry # (Auto) 0.7 10^3/uL (0.2-0.9) 12/15/24 19:19 Eos # (Auto) 0.3 10^3/uL (0.0-0.8) 12/15/24 19:19 Baso # (Auto) 0.1 10^3/uL (0.0-0.1) 12/15/24 19:19 Nucleated RBC % (auto) 0 % 12/15/24 19:19 Nucleated RBCs # 0.0 /100WBC 12/15/24 19:19 Specimen Type Arterial 12/15/24 19:27 Sample Site Brachial, left 12/15/24 19:27 ABG pH 7.32 (7.35-7.45) L 12/15/24 19:27 ABG pCO2 70.1 mmHg (35-45) H* 12/15/24 19:27 ABG pO2 53.4 mmHg (80.0-100.0) L 12/15/24 19:27 ABG PO2/FiO2 Ratio 133 12/15/24 19:27 ABG HCO3 36.4 mmol/L (22-26) H 12/15/24 19:27 ABG O2 Saturation 87.5 12/15/24 19:27 ABG Base Excess 8.3 mmol/L (-2.0-2.0) H 12/15/24 19:27 [place]an Test Pos 12/15/24 19:27 A-a O2 Gradient 19.4 mmHg (5-10) H 12/15/24 19:27 Hematocrit 33.6 % (37-47) L 12/15/24 19:27 Hgb O2 Saturation 85.7 % (95-100) L 12/15/24 19:27 Carboxyhemoglobin 1.7 %THgb (0.4-20.1) 12/15/24 19:27 Methemoglobin 0.4 % (0.4-1.5) 12/15/24 19:27 Total Hemoglobin 11.0 g/dL (12-16) L 12/15/24 19:27 Sodium 144.0 mmol/L (131-143) H 12/15/24 19:27 Potassium 5.1 mmol/L (3.5-5.0) H 12/15/24 19:27 Glucose 189.0 mg/dL (70-115) H 12/15/24 19:27 Ionized Calcium 1.4 mmol/L (1.1-1.4) 12/15/24 19:27 O2 Delivery Device Nc 12/15/24 19:27 O2 Liters/Min 6.0 % 12/15/24 19:27 FiO2 40.0 % 12/15/24 19:27 Implementation Specialist Payroll ID [email or web address] 12/15/24 19:27 Sodium 144 mmol/L (136-145) 12/15/24 19:19 Potassium 5.2 mmol/L (3.5-5.1) H 12/15/24 19:19 Chloride 101 mmol/L (98-107) 12/15/24 19:19 Carbon Dioxide 33 mmol/L (22-29) H 12/15/24 19:19 Anion Gap 15.2 (5-19) 12/15/24 19:19 BUN 41 mg/dL (8-23) H 12/15/24 19:19 Creatinine 1.1 mg/dL (0.5-0.9) H 12/15/24 19:19 GFR Calculation Not Reportable 12/15/24 19:19 Glucose 177 mg/dL (65-115) H 12/15/24 19:19 Calculated Osmolality 312 mOsm/kg (285-295) H 12/15/24 19:19 Lactic Acid 1.0 mmol/L (0.5-2.2) 12/15/24 19:19 Calcium 10.1 mg/dL (8.5-10.5) 12/15/24 19:19 Total Bilirubin 0.5 mg/dL (0.15-1.2) 12/15/24 19:19 AST 19 U/L (0-32) 12/15/24 19:19 ALT 27 U/L (0-33) 12/15/24 19:19 Alkaline Phosphatase 54 U/L (35-105) 12/15/24 19:19 Troponin T Baseline 35 ng/L (0-10) H 12/15/24 19:19 C-Reactive Protein 25.9 mg/L (0.0-4.9) H 12/15/24 19:19 NT-Pro-B Natriuret Pep 829 pg/mL (0-450) H 12/15/24 19:19 Total Protein 6.3 g/dL (6.6-8.7) L 12/15/24 19:19 Albumin 3.9 g/dL (3.5-5.2) 12/15/24 19:19 Globulin 2.4 g/dL (1.3-4.6) 12/15/24 19:19 Procalcitonin 0.10 ng/mL (0-0.5) 12/15/24 19:19 Influenza A (PCR) Negative (Negative) 12/15/24 19:20 Influenza Type B (PCR) Negative (Negative) 12/15/24 19:20 RSV (PCR) Negative (Negative) 12/15/24 19:20 SARS-CoV-2 (PCR) Negative (Negative) 12/15/24 19:20 All radiology interpretation(s) finalized by discharge Discharge Plan Discharge Patient Disposition: Admitted As Inpatient Clinical Impression: Acute on chronic hypoxic respiratory failure, Acute hypercapnic respiratory failure, Flash pulmonary edema, COPD with acute exacerbation Condition: Stable Coding Level of Care Code ED Lithographic Photographer for Darrell Zavaleta
--- OUTSIDE RECORDS SUMMARY | 2024-12-15 19:10 | XMS_ITS | Data Portability ---
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 I was present during interview and exam. I have reviewed and agree with above documentation. Dr. Marilee Braden. [email or web address] Not available 10/08/2023 15:17:08 07/14/2024 07/14/2024 Document scribed by Rob Bellibe. I was present during interview and exam. I have reviewed and agree with above documentation. Dr. Marilee Braden. Lab today, phone f/u. [email or web address] Not available 07/14/2024 16:11:30 12/02/2024 12/02/2024 Document scribed by Rob Bellibe. I was present during interview and exam. I have reviewed and agree with above documentation. Dr. Marilee Braden. I reviewed hospital records prior to seeing the patient today. I have reviewed tests/procedur es and diagnoses during hospital stay. I have reviewed and noted medications prior to admission as well as medication changes post admission. I have updated and reconciled medications post discharge today and meds are updated in EMR. I have also educated patient about medication changes and current medications. Please see hpi above and chart for detailed records. I have addressed all patient questions today. They express verbal understanding. The patient and daughter expressed verbal understanding. All questions were addressed. [email or web address] Not available 12/07/2024 09:31:40 Plan of Treatment Reminders Order Date Submit Date Provider Last Modified By Organization Details Last Modified Time Details Appointments RECHECK 10 2024 03:30P Natalia Braden, DO Not available Not available Not available Lab hemoglobi n A1C/hemog lobin total, QN, blood 2024 025 [email or web address] 7 [facility], [address], [address], [place], [address], 07/14/2024 17:50:20 CMP, serum or plasma 2024 025 [email or web address] 7 [facility], [address], [address], [place], [address], 07/14/2024 17:50:20 CBC 2024 025 [email or web address] 7 [facility], [address], [facility], [place], [address], 07/14/2024 17:50:20 lipid panel, blood 2024 025 [email or web address] 7 [facility], [address], [address], [place], [address], 07/14/2024 17:50:20 vitamin B12 + folate, serum or blood 2024 025 [employer] [facility], [address] [place] [address] [address], [address] , [place], [address], 07/15/2024 07:41:55 vitamin D, 25-hydrox y, total, serum 2024 025 [employer] [facility], [address] [place] [address] [address], [address], [place], [address], 07/15/2024 07:41:56 thyrotrop in, QN, serum or plasma 2024 025 [email or web address] 7 [facility], [address], [address], [place], [address], 07/14/2024 17:50:20 T4, free, serum 2024 025 [employer] [facility], [address], [address], [place], [address], 07/15/2024 07:41:54 microalbu min/creat inine, mass ratio, urine 2024 025 [employer] [facility], [address], [address], [place], [address], 03/17/2024 10:50:51 hemoglobi n A1C/hemog lobin total, QN, blood 2024 025 [facility], [address], [address], [place], [address], 03/16/2024 16:39:45 CMP, serum or plasma 2024 025 [facility], [address], [address], [place], [address], 03/16/2024 16:38:32 lipid panel, blood 2024 025 [facility], [address], [address], [place], [address], 03/16/2024 16:38:35 CBC 2024 025 [facility], [address] [facility] [address], [address], [place], [address], 03/16/2024 16:24:46 Referral dermatolo gist referral - Dr. Dickens [email or web address] [place] [address] Dermatology, [address] [place], [address], 08/18/2024 12:10:04 physical therapist referral 2024 025 [employer] Anais, [address] [place], [address], 04/20/2024 15:51:37 Procedures None recorded. Surgeries None recorded. Imaging electroca rdiogram 2024 025 [email or web address] [facility] ([facility]), [address] [facility], [place], [address], 07/15/2024 09:49:18 US, echocardi ogram [address] [facility] Orders, [address] [place], [address], 07/17/2024 13:42:54 Medication Orders carvedilo l 6.25 mg tablet 2024 025 [email or web address] [facility]75818, [address], [place], [place], [id number], 12/07/2024 16:07:59 betametha sone acetate and sodium phos 6 mg/mL suspensio n for injection 2023 024 [email or web address] Not available 03/16/2024 15:25:20 tramadol 50 mg tablet 2023 024 CARMINE [facility] #14122, [address], [place], [place], [id number], 10/24/2023 09:21:34 ropinirol e 4 mg tablet 2023 024 [email or web address] [facility] #86605, [address], [place], [place], [id number], 10/09/2023 08:21:26 amoxicill in 875 mg-potass ium clavulana te 125 mg tablet 2023 024 [facility]06147, [address], [place], [place], [id number], 10/24/2023 09:02:47 mupirocin 2 % topical ointment 2023 025 [facility] #34797, [address], [place], [place], [id number], 07/14/2024 15:45:13 Patient TargetsNo targets recorded. Patient InstructionsNo instructions recorded. Reason for Referral Physical Therapist Referral for Difficulty walking Referring Physician: Marilee Braden [facility], Encounter Date: 03/16/2024 Perforator Operator Oil Well Referral for S eborrheic keratosis Dr. Dickens Referring Physician: Marilee Braden [facility], Encounter Date: 07/14/2024 Results Created Date Observation Date Name Description Value Unit Range Abnormal Flag Note LastModifiedBy Organization Detail LastModifiedTime 09/26/19 24 09/26/2023 CBC WBC 7.3 x10 4.0-10 .5 Not Available [facility] [address] [facility], [place], [address], 09/26/2023 13:38:10 09/26/19 24 09/26/2023 CBC RBC 4.94 x10 3.50-5 .50 Not Available [facility] [address] [facility], [place], [address], 09/26/2023 13:38:10 09/26/19 24 09/26/2023 CBC HGB 13.9 g/dL 12.0-1 6.0 Not Available [facility] [address] [facility] 1, [place], [address], 09/26/2023 13:38:10 09/26/19 24 09/26/2023 CBC HCT 42.7 % 37.0-4 7.0 Not Available [facility] [address] [facility], [place], [address], 09/26/2023 13:38:10 09/26/19 24 09/26/2023 CBC MCV 86.4 fL 80.0-9 9.9 Not Available [facility] [address] [facility] [address] [facility], [place], [address], 09/26/2023 13:38:10 09/26/19 24 09/26/2023 CBC MCH 28.2 pg 27.0-3 2.0 Not Available [facility] [address] [facility] [address] [facility], [place], [address], 09/26/2023 13:38:10 09/26/19 24 09/26/2023 CBC MCHC 32.6 g/dL 32.0-3 6.0 Not Available [facility] [address] [facility] [address] [facility], [place], [address], 09/26/2023 13:38:10 09/26/19 24 09/26/2023 CBC RDW 14.8 % 11.5-1 4.5 high Not Available [facility] [address] [facility] [address] [facility], [place], [address], 09/26/2023 13:38:10 09/26/19 24 09/26/2023 CBC plt 291.5 x10 140.0- 451.0 Not Available [facility] [address] [facility] [address] [facility], [place], [address], 09/26/2023 13:38:10 09/26/19 24 09/26/2023 CBC lymphocytes % 22.6 % 20.0-5 0.0 Not Available [facility] [address] [facility] [address] [facility], [place], [address], 09/26/2023 13:38:10 09/26/19 24 09/26/2023 CBC granulcytes % 61.5 % 30.0-7 0.0 Not Available [facility] [address] [facility] [address] [facility], [place], [address], 09/26/2023 13:38:10 09/26/19 24 09/26/2023 CBC monocytes % 10.7 % 2.0-16 .0 Not Available [facility] [address] [address], [place], [address], 09/26/2023 13:38:10 09/26/19 24 09/26/2023 CBC granulcytes# 4.5 x10 Not Jessica ilable [facility] [address] [address], [place], [address], 09/26/2023 13:38:10 09/26/19 24 09/26/2023 CBC lymphocytes # 1.7 x10 Not Available [facility] [address] [address], [place], [address], 09/26/2023 13:38:10 09/26/19 24 09/26/2023 CBC monocytes # 0.8 x10 Not Avai lable [facility] [address] [address], [place], [address], 09/26/2023 13:38:10 09/26/19 24 09/26/2023 CMP (FEMA LE) glucose 118.0 mg/dL 60.0-9 9.0 high Not Available [facility] [address] [address], [place], [address], 09/26/2023 15:04:01 09/26/1909/26/2023 CMP (FEMA LE) BUN (blood urea nitrogen) 24.0 mg/dL 10.0-2 6.0 Not Available [facility] [address] [address], [place], [address], 09/26/2023 15:04:01 09/26/19 24 09/26/2023 CMP (FEMA LE) creatinine (serum) 0.7 mg/dL 0.4-1. 5 Not Available [facility] [address] [facility] [address] [facility], [place], [address], 09/26/2023 15:04:01 09/26/19 24 09/26/2023 CMP (FEMA LE) BUN/creatini ne ratio 36.92 ratio Not Available [facility] [address] [facility], [place], [address], 09/26/2023 15:04:01 09/26/19 24 09/26/2023 CMP (FEMA LE) eGFR calculated 92.1 Not Available [facility] [address] [facility] 1, [place], [address], 09/26/2023 15:04:01 09/26/19 24 09/26/2023 CMP (FEMA LE) total protein 7.4 g/dL 6.0-8. 5 Not Available [facility] [address] [facility] 1, [place], [address], 09/26/2023 15:04:01 09/26/19 24 09/26/2023 CMP (FEMA LE) total bilirubin 0.5 mg/dL 0.2-1. 3 Not Available [facility] [address] [facility] 1, [place], [address], 09/26/2023 15:04:01 09/26/19 24 09/26/2023 CMP (FEMA LE) albumin 4.4 g/dL 3.5-5. 5 Not Available [facility] [address] [facility] [address] [facility], [place], [address], 09/26/2023 15:04:01 09/26/19 24 09/26/2023 CMP (FEMA LE) globulin 3.0 calc Not Available [facility] [address] [facility], [place], [address], 09/26/2023 15:04:01 09/26/19 24 09/26/2023 CMP (FEMA LE) AST (SGOT) 27.0 U/L 0.0-46 .0 Not Available [facility] [address] [facility], [place], [address], 09/26/2023 15:04:01 09/26/19 24 09/26/2023 CMP (FEMA LE) altv (SGPT) 29.0 U/L 13.0-6 9.0 normal Not Available [facility] [address] [facility], [place], [address], 09/26/2023 15:04:01 09/26/19 24 09/26/2023 CMP (FEMA LE) A/G ratio 1.5 ratio Not Available [facility] [address] [facility], [place], [address], 09/26/2023 15:04:01 09/26/19 24 09/26/2023 CMP (FEMA LE) ALP phos 91.0 U/L 30.0-1 40.0 normal Not Available [facility] [address] [facility] 1, [place], [address], 09/26/2023 15:04:01 09/26/19 24 09/26/2023 CMP (FEMA LE) calcium 10.5 mg/dL 8.4-10 .5 Not Available [facility] [address] [facility] 1, [place], [address], 09/26/2023 15:04:01 09/26/19 24 09/26/2023 CMP (FEMA LE) sodium 140.0 mmol/ L 136.0- 145.0 Not Available [facility] [address] [facility] 1, [place], [address], 09/26/2023 15:04:01 09/26/19 24 09/26/2023 CMP (FEMA LE) potassium 4.0 mmol/ L 3.5-5. 1 Not Available [facility] [address] [facility] [address], [place], [address], 09/26/2023 15:04:01 09/26/19 24 09/26/2023 CMP (FEMA LE) chloride 105.0 mmol/ L 98.0-1 10.0 normal Not Available [facility] [address] [facility] 1, [place], [address], 09/26/2023 15:04:01 09/26/19 24 09/26/2023 CMP (FEMA LE) C02 31.0 mmol/ L 22.0-3 1.0 Not Available [facility] [address] [facility] [address], [place], [address], 09/26/2023 15:04:01 09/26/19 24 09/26/2023 CMP (FEMA LE) anion gap 4.0 calc Not Available [facility] [address] [facility] 1, [place], [address], 09/26/2023 15:04:01 09/26/19 24 09/26/2023 CMP (FEMA LE) osmolality 293.9 calc Not Available [facility] [address] [facility] [address], [place], [address], 09/26/2023 15:04:01 09/26/19 24 09/27/2023 ALBUM IN, RANDO M URINE W/CRE ATINI NE creatinine, random urine 49 mg/dL 20-[address] [facility] [address] [address], [place], [address], 09/27/2023 15:22:27 09/26/19 24 09/27/2023 ALBUM IN, RANDO M URINE W/CRE ATINI NE albumin, urine 21.2 mg/dL see note: normal Refer ence Range : Refer ence Range Not estab lishe d Not Available [facility] [address] [place], [address], 09/27/2023 15:22:27 09/26/19 24 09/27/2023 ALBUM IN, RANDO M URINE W/CRE ATINI NE albumin/crea tinine ratio, random urine 433 mg/g_ creat <30 high The ADA defin es abnor malit ies in album in excre tion as follo ws: Album inuri a Categ ory Resul t (mg/g creat inine ) Lou l to Mildl y incre ased <30 Moder ately incre ased 30-29 9 Sever tana incre ased > OR = 300 The ADA recom mends that at least two of three speci mens colle cted withi n a 3-6 month perio d be abnor mal befor e consi danette g a patie nt to be withi n a diagn ostic categ ory. Not Available [facility] [address] [place], [address], 09/27/2023 15:22:27 09/26/19 24 09/26/2023 HbA1c (hemo globi n A1c), blood HbA1c 6.2 Not Available [facility] ([facility]) [address] [place] [address], [address], 09/26/2023 12:32:44 03/16/19 25 03/16/2024 CBC WBC 8.4 x10 4.0-10 .5 Not Available [address], [address], 03/16/2024 16:24:46 03/16/19 25 03/16/2024 CBC RBC 5.11 x10 3.50-5 .50 Not Available [facility] [address], [address], 03/16/2024 16:24:46 03/16/19 25 03/16/2024 CBC HGB 14.8 g/dL 12.0-1 6.0 Not Available [facility] [address] [facility], [place], [address], 03/16/2024 16:24:46 03/16/19 25 03/16/2024 CBC HCT 44.1 % 37.0-4 7.0 Not Available [facility] [address] [facility] [address] [facility], [place], [address], 03/16/2024 16:24:46 03/16/19 25 03/16/2024 CBC MCV 86.3 fL 80.0-9 9.9 Not Available [facility] [address] [facility] [address] [facility], [place], [address], 03/16/2024 16:24:46 03/16/19 25 03/16/2024 CBC MCH 29.0 pg 27.0-3 2.0 Not Available [facility] [address] [facility], [place], [address], 03/16/2024 16:24:46 03/16/19 25 03/16/2024 CBC MCHC 33.6 g/dL 32.0-3 6.0 Not Available [facility] [address] [facility] [address] [facility], [place], [address], 03/16/2024 16:24:46 03/16/19 25 03/16/2024 CBC RDW 14.8 % 11.5-1 4.5 high Not Available [facility] [address] [facility] [address] [facility], [place], [address], 03/16/2024 16:24:46 03/16/19 25 03/16/2024 CBC plt 256.6 x10 140.0- 451.0 Not Available [facility] [address] [facility] 1, [place], [address], 03/16/2024 16:24:46 03/16/19 25 03/16/2024 CBC lymphocytes % 24.8 % 20.0-5 0.0 Not Available [facility] [address] [facility] 1, [place], [address], 03/16/2024 16:24:46 03/16/19 25 03/16/2024 CBC granulcytes % 60.2 % 30.0-7 0.0 Not Available [facility] [address] [facility] 1, [place], [address], 03/16/2024 16:24:46 03/16/19 25 03/16/2024 CBC monocytes % 10.6 % 2.0-16 .0 Not Available [facility] [address] [address], [place], [address], 03/16/2024 16:24:46 03/16/19 25 03/16/2024 CBC granulcytes# 5.0 x10 Not Jessica ilable [facility] [address] [facility] 1, [place], [address], 03/16/2024 16:24:46 03/16/19 25 03/16/2024 CBC lymphocytes # 2.1 x10 Not Available [facility] [address] [address], [place], [address], 03/16/2024 16:24:46 03/16/19 25 03/16/2024 CBC monocytes # 0.9 x10 Not Avai lable [facility] [address] [facility] 1, [place], [address], 03/16/2024 16:24:46 03/16/19 25 03/16/2024 CMP (FEMA LE) glucose 117.0 mg/dL 60.0-9 9.0 high Not Available [facility] [address] [facility] 1, [place], [address], 03/16/2024 16:38:32 03/16/19 25 03/16/2024 CMP (FEMA LE) BUN (blood urea nitrogen) 34.0 mg/dL 10.0-2 6.0 high Not Available [facility] [address] [facility] 1, [place], [address], 03/16/2024 16:38:32 03/16/19 25 03/16/2024 CMP (FEMA LE) creatinine (serum) 1.0 mg/dL 0.4-1. 5 Not Available [facility] [address] [facility] 1, [place], [address], 03/16/2024 16:38:32 03/16/19 25 03/16/2024 CMP (FEMA LE) BUN/creatini ne ratio 34.00 ratio Not Available [facility] [address] [facility] 1, [place], [address], 03/16/2024 16:38:32 03/16/19 25 03/16/2024 CMP (FEMA LE) eGFR calculated 55.9 Not Available [facility] [address] [facility] 1, [place], [address], 03/16/2024 16:38:32 03/16/19 25 03/16/2024 CMP (FEMA LE) total protein 7.9 g/dL 6.0-8. 5 Not Available [facility] [address] [facility] 1, [place], [address], 03/16/2024 16:38:32 03/16/19 25 03/16/2024 CMP (FEMA LE) total bilirubin 0.5 mg/dL 0.2-1. 3 Not Available [facility] [address] [facility] 1, [place], [address], 03/16/2024 16:38:32 03/16/19 25 03/16/2024 CMP (FEMA LE) albumin 4.7 g/dL 3.5-5. 5 Not Available [facility] [address] [facility], [place], [address], 03/16/2024 16:38:32 03/16/19 25 03/16/2024 CMP (FEMA LE) globulin 3.2 calc Not Available [facility] [place] [place] [facility] [address] [facility], [place], [address], 03/16/2024 16:38:32 03/16/19 25 03/16/2024 CMP (FEMA LE) AST (SGOT) 30.0 U/L 0.0-46 .0 Not Available [facility] [address] [facility], [place], [address], 03/16/2024 16:38:32 03/16/19 25 03/16/2024 CMP (FEMA LE) altv (SGPT) 35.0 U/L 13.0-6 9.0 normal Not Available [facility] [address] [facility], [place], [address], 03/16/2024 16:38:32 03/16/19 25 03/16/2024 CMP (FEMA LE) A/G ratio 1.5 ratio Not Available [facility] [address] [facility], [place], [address], 03/16/2024 16:38:32 03/16/19 25 03/16/2024 CMP (FEMA LE) ALP phos 139.0 U/L 30.0-1 40.0 normal Not Available [facility] [address] [facility], [place], [address], 03/16/2024 16:38:32 03/16/19 25 03/16/2024 CMP (FEMA LE) calcium 10.5 mg/dL 8.4-10 .5 Not Available [facility] [address] [facility] 1, [place], [address], 03/16/2024 16:38:32 03/16/19 25 03/16/2024 CMP (FEMA LE) sodium 142.0 mmol/ L 136.0- 145.0 Not Available [facility] [address] [facility] 1, [place], [address], 03/16/2024 16:38:32 03/16/19 25 03/16/2024 CMP (FEMA LE) potassium 4.3 mmol/ L 3.5-5. 1 Not Available [facility] [address] [facility] 1, [place], [address], 03/16/2024 16:38:32 03/16/19 25 03/16/2024 CMP (FEMA LE) chloride 101.0 mmol/ L 98.0-1 10.0 normal Not Available [facility] [address] [facility] 1, [place], [address], 03/16/2024 16:38:32 03/16/19 25 03/16/2024 CMP (FEMA LE) C02 30.0 mmol/ L 22.0-3 1.0 Not Available [facility] [address] [facility] 1, [place], [address], 03/16/2024 16:38:32 03/16/19 25 03/16/2024 CMP (FEMA LE) anion gap 11.0 calc Not Available [facility] [address] [facility] 1, [place], [address], 03/16/2024 16:38:32 03/16/19 25 03/16/2024 CMP (FEMA LE) osmolality 301.2 calc Not Available [facility] [address] [facility] 1, [place], [address], 03/16/2024 16:38:32 03/16/19 25 03/16/2024 LIPID PROFI LE (FEMA LE) cholesterol 215.0 mg/dL 0.0-20 0.0 high Not Available [facility] [address] [facility] 1, [place], [address], 03/16/2024 16:38:35 03/16/19 25 03/16/2024 LIPID PROFI LE (FEMA LE) trig 465.0 mg/dL 0.0-15 0.0 high Not Available [facility] [address] [facility] 1, [place], [address], 03/16/2024 16:38:35 03/16/19 25 03/16/2024 LIPID PROFI LE (FEMA LE) HDL - direct 48.0 mg/dL >40.0 Not Available [facility] [address] [facility] 1, [place], [address], 03/16/2024 16:38:35 03/16/19 25 03/16/2024 LIPID PROFI LE (FEMA LE) VLDL - direct 93.0 mg/dL Not Available [facility] [address] [address], [place], [address], 03/16/2024 16:38:35 03/16/19 25 03/16/2024 LIPID PROFI LE (FEMA LE) LDL - direct 74.0 mg/dL 0.0-13 0.0 Not Available [facility] [address] [facility] 1, [place], [address], 03/16/2024 16:38:35 03/16/19 25 03/16/2024 HBA1C hemaglobin A1C 7.8 abnormal Not Available [facility] [address] [facility] 1, [place], [address], 03/16/2024 16:40:58 03/16/19 25 03/17/2024 ALBUM IN, RANDO M URINE W/CRE ATINI NE creatinine, random urine 80 mg/dL 20-275 normal Not Available [facility] [address] [place], [address], 03/17/2024 10:50:51 03/16/19 25 03/17/2024 ALBUM IN, RANDO M URINE W/CRE ATINI NE albumin, urine 27.0 mg/dL see note: normal Refer ence Range : Refer ence Range Not estab lishe d Not Available [facility] [address] [address], [place], [address], 03/17/2024 10:50:51 03/16/19 25 03/17/2024 ALBUM IN, RANDO M URINE W/CRE ATINI NE albumin/crea tinine ratio, random urine 338 mg/g_ creat <30 high The ADA defin es abnor malit ies in album in excre tion as follo ws: Album inuri a Categ ory Resul t (mg/g creat inine ) Lou l to Mildl y incre ased <30 Moder ately incre ased 30-29 9 Sever tana incre ased > OR = 300 The ADA recom mends that at least two of three speci mens colle cted withi n a 3-6 month perio d be abnor mal befor e consi danette g a patie nt to be withi n a diagn ostic categ ory. Not Available [facility] [address] [place], [address], 03/17/2024 10:50:51 07/15/19 25 07/14/2024 CBC WBC 9.0 x10 4.0-10 .5 Not Available [facility] [address], [place], [address], 07/14/2024 16:42:59 07/15/19 25 07/14/2024 CBC RBC 4.85 x10 3.50-5 .50 Not Available [facility] [address] [facility] [place], [address], 07/14/2024 16:42:59 07/15/19 25 07/14/2024 CBC HGB 13.8 g/dL 12.0-1 6.0 Not Available [facility] [address] [facility] [address] [facility] [facility], [place], [address], 07/14/2024 16:42:59 07/15/19 25 07/14/2024 CBC HCT 43.5 % 37.0-4 7.0 Not Available [facility] [address] [facility], [place], [address], 07/14/2024 16:42:59 07/15/19 25 07/14/2024 CBC MCV 89.6 fL 80.0-9 9.9 Not Available [facility] [address] [facility], [place], [address], 07/14/2024 16:42:59 07/15/19 25 07/14/2024 CBC MCH 28.5 pg 27.0-3 2.0 Not Available [facility] [address] [facility], [place], [address], 07/14/2024 16:42:59 07/15/19 25 07/14/2024 CBC MCHC 31.8 g/dL 32.0-3 6.0 low Not Available [facility] [address] [facility], [place], [address], 07/14/2024 16:42:59 07/15/19 25 07/14/2024 CBC RDW 14.1 % 11.5-1 4.5 Not Available [facility] [address] [facility], [place], [address], 07/14/2024 16:42:59 07/15/19 25 07/14/2024 CBC plt 270.1 x10 140.0- 451.0 Not Available [facility] [address] [address], [place], [address], 07/14/2024 16:42:59 07/15/19 25 07/14/2024 CBC lymphocytes % 16.1 % 20.0-5 0.0 low Not Available [facility] [address] [address], [place], [address], 07/14/2024 16:42:59 07/15/19 25 07/14/2024 CBC granulcytes % 68.8 % 30.0-7 0.0 Not Available [facility] [address] [address], [place], [address], 07/14/2024 16:42:59 07/15/19 25 07/14/2024 CBC monocytes % 9.8 % 2.0-16 .0 Not Available [facility] [address], [address], 07/14/2024 16:42:59 07/15/19 25 07/14/2024 CBC granulcytes# 6.2 x10 Not Jessica ilable [facility] [address] [address], [place], [address], 07/14/2024 16:42:59 07/15/19 25 07/14/2024 CBC lymphocytes # 1.5 x10 Not Available [facility] [address], [address], 07/14/2024 16:42:59 07/15/19 25 07/14/2024 CBC monocytes # 0.9 x10 Not Avai lable [facility] [address] [address], [place], [address], 07/14/2024 16:42:59 07/15/19 25 07/14/2024 CMP (FEMA LE) glucose 203.0 mg/dL 60.0-9 9.0 high Not Available [facility] [address] [facility], [place], [address], 07/14/2024 16:55:10 07/15/19 25 07/14/2024 CMP (FEMA LE) BUN (blood urea nitrogen) 25.0 mg/dL 10.0-2 6.0 Not Available [facility] [address] [facility] 1, [place], [address], 07/14/2024 16:55:10 07/15/19 25 07/14/2024 CMP (FEMA LE) creatinine (serum) 0.7 mg/dL 0.4-1. 5 Not Available [facility] [address] [facility] 1, [place], [address], 07/14/2024 16:55:10 07/15/19 25 07/14/2024 CMP (FEMA LE) BUN/creatini ne ratio 35.71 ratio Not Available [address] [facility], [place], [address], 07/14/2024 16:55:10 07/15/19 25 07/14/2024 CMP (FEMA LE) eGFR calculated 84.3 Not Available [facility] [address] [facility], [place], [address], 07/14/2024 16:55:10 07/15/19 25 07/14/2024 CMP (FEMA LE) total protein 7.6 g/dL 6.0-8. 5 Not Available [facility] [address] [facility], [place], [address], 07/14/2024 16:55:10 07/15/19 25 07/14/2024 CMP (FEMA LE) total bilirubin 0.5 mg/dL 0.2-1. 3 Not Available [facility] [address] [facility] 1, [place], [address], 07/14/2024 16:55:10 07/15/19 25 07/14/2024 CMP (FEMA LE) albumin 4.4 g/dL 3.5-5. 5 Not Available [facility] [address] [facility] 1, [place], [address], 07/14/2024 16:55:10 07/15/19 25 07/14/2024 CMP (FEMA LE) globulin 3.2 calc Not Available [facility] [address] [facility] 1, [place], [address], 07/14/2024 16:55:10 07/15/19 25 07/14/2024 CMP (FEMA LE) AST (SGOT) 29.0 U/L 0.0-46 .0 Not Available [facility] [address] [facility] 1, [place], [address], 07/14/2024 16:55:10 07/15/19 25 07/14/2024 CMP (FEMA LE) altv (SGPT) 37.0 U/L 13.0-6 9.0 normal Not Available [facility] [address] [facility] 1, [place], [address], 07/14/2024 16:55:10 07/15/19 25 07/14/2024 CMP (FEMA LE) A/G ratio 1.4 ratio Not Available [facility] [address] [facility] 1, [place], [address], 07/14/2024 16:55:10 07/15/19 25 07/14/2024 CMP (FEMA LE) ALP phos 112.0 U/L 30.0-1 40.0 normal Not Available [facility] [address] [facility] 1, [place], [address], 07/14/2024 16:55:10 07/15/19 25 07/14/2024 CMP (FEMA LE) calcium 10.5 mg/dL 8.4-10 .5 Not Available [facility] [address] [facility] 1, [place], [address], 07/14/2024 16:55:10 07/15/19 25 07/14/2024 CMP (FEMA LE) sodium 139.0 mmol/ L 136.0- 145.0 Not Available [facility] [address] [facility] 1, [place], [address], 07/14/2024 16:55:10 07/15/19 25 07/14/2024 CMP (FEMA LE) potassium 4.2 mmol/ L 3.5-5. 1 Not Available [facility] [address] [facility] 1, [place], [address], 07/14/2024 16:55:10 07/15/19 25 07/14/2024 CMP (FEMA LE) chloride 99.0 mmol/ L 98.0-1 10.0 normal Not Available [facility] 805 [facility] 1, [place], [address], 07/14/2024 16:55:10 07/15/19 25 07/14/2024 CMP (FEMA LE) C02 32.0 mmol/ L 22.0-3 1.0 high Not Available [facility] [address] [facility] 1, [place], [address], 07/14/2024 16:55:10 07/15/19 25 07/14/2024 CMP (FEMA LE) anion gap 8.0 calc Not Available [facility] 805 [facility] 1, [place], [address], 07/14/2024 16:55:10 07/15/19 25 07/14/2024 CMP (FEMA LE) osmolality 296.5 calc Not Available [facility] 8[address] [facility] 1, [place], [address], 07/14/2024 16:55:10 07/15/19 25 07/14/2024 LIPID PROFI LE (FEMA LE) cholesterol 191.0 mg/dL 0.0-20 0.0 Not Available [facility] [address] [facility] 1, [place], [address], 07/14/2024 16:55:13 07/15/19 25 07/14/2024 LIPID PROFI LE (FEMA LE) trig 433.0 mg/dL 0.0-15 0.0 high Not Available [facility] [address] [facility] 1, [place], [address], 07/14/2024 16:55:13 07/15/19 25 07/14/2024 LIPID PROFI LE (FEMA LE) HDL - direct 44.0 mg/dL >40.0 Not Available [facility] [address] [facility] 1, [place], [address], 07/14/2024 16:55:13 07/15/19 25 07/14/2024 LIPID PROFI LE (FEMA LE) VLDL - direct 86.6 mg/dL Not Available [facility] [address] [facility] 1, [place], [address], 07/14/2024 16:55:13 07/15/19 25 07/14/2024 LIPID PROFI LE (FEMA LE) LDL - direct 60.4 mg/dL 0.0-13 0.0 Not Available [facility] [address] [facility] 1, [place], [address], 07/14/2024 16:55:13 07/15/19 25 07/14/2024 HBA1C hemaglobin A1C 8.3 4.2-6. 5 high Not Available [facility] [address] [facility] 1, [place], [address], 07/14/2024 16:59:42 07/15/19 25 07/14/2024 TSH TSH 2.40 uIU/m L 0.49-3 .82 Not Available [facility] [address] [facility] 1, [place], [address], 07/14/2024 17:15:09 07/15/19 25 07/15/2024 T4, FREE T4, free 1.2 NG/dL 0.8-1. 8 normal Not Available [facility] [address] [address] [place], [address], 07/15/2024 07:41:54 07/15/19 25 07/15/2024 VITAM IN B12/F OLATE , SERUM PANEL vitamin B12 583 pg/mL 200-11 00 normal Not Available [facility] [address] [place], [address], 07/15/2024 07:41:55 07/15/19 25 07/15/2024 VITAM IN B12/F OLATE , SERUM PANEL folate, serum 22.5 NG/mL normal Refer ence Range Low: <3.4 Borde rline : 3.4-5 .4 Lou l: >5.4 Not Available [facility] [address] [address] [place], [address], 07/15/2024 07:41:55 07/15/19 25 07/15/2024 VITAM IN D,25- OH,TO EUGENIO,I A vitamin D,25-oh,tota l,ia 23 NG/mL 30-100 low Vitam in D Statu s 25-OH Vitam in D: Defic iency : <20 ng/mL Insuf ficie ncy: 20 - 29 ng/mL Optim al: > or = 30 ng/mL For 25-OH Vitam in D testi ng on patie nts on D2-lopez pplem entat ion and patie nts for whom quant itati on of D2 and D3 fract ions is requi red, the [facility] Assur eD(TM ) 25-OH VIT D, (D2,D 3), LC/MS /MS is recom brigido d: order code 17857 (renee ents >2yrs ). See Note 1 Note 1 For addit ional infor honorio patterson e refer to http: //[facility] dipika yo.Que stDia gnost ics.c om/fa q/FAQ 199 (This link is being provi ded for infor lia rios/ alejandro العلي purpo ses only. ) Not Available [facility] [address] [address], [place], [address], 07/15/2024 07:41:56 07/15/1907/16/2024 elect rocar diogr am No observ ation record ed. [email or web address] [facility] ([facility] [address] [place], [address], 07/24/2024 09:41:39 07/16/1907/14/2024 elect rocstefanie diogr am No observ ation record ed. [email or web address] [facility] ([facility]) [address] [place], [address], 07/16/2024 17:26:49 12/04/1911/28/2024 rhyth m strip * No observ ation record ed. 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 Per Dr. Afroze , Pulm. dkiest Not Available 2024 17:05:11 12/16/19 25 11/26/2024 imagi ng/di agnos tic resul t No observ ation record ed. [facility] [address] [place], [address], 12/15/2024 10:03:26 Result Notes None recorded. Problems Name Problem SNOMED Code Status Onset Date Resolution Date Notes Provider Name and Address Organization Details Recorded Time Atrial fibrilla tion 83755268 Completed 201903/10/2019 ATRIAL FIBRILLA TION - Status is Inactive ; Recorded 03/10/19 20 9:54AM by Ana Ramirez CMT, Annotati on/Addel dum; Promoted ; acuity set as *; Marilee Stevensena DO [address] [place] [address], [address], [facility], Shelly.L.CChris 4 09:09:01 History of divertic ulitis 12954723379 9100 Active 2021 Suzanne santana [facility], L.L.CChris 5 15:46:26 Hyperlip idemia 07425025 Active 2022 HYPERLIP IDEMIA; Impressi on: conitnue fenofibr ate and atorvast atin. labs today. counsele d on diet Marileepapi Braden DO [address] [place] [address], [phone], [facility], L.L.C. 4 09:09:01 Inflamed seborrhe ic keratosi s 745621275 Active 2022 Suzanne santana [facility], L.LChrisCChris 5 15:46:26 [facility] l hyperten gregg 02824375 Active 2022 Marilee Braden DO [address] [place] [address], [phone], [facility] Kevin, Shelly.LChrisCChris 4 09:09:01 Diabetes mellitus 37375953 Active 2022 Marilee Braden DO [address] [place] [address], [phone], [facility], L.L[facility] 4 09:09:01 Restless legs syndrome 72526361 Active 2022 Marilee Braden DO [address] [place] [address], [address], [facility], L.L.C. 4 09:09:00 Pain of right shoulder joint 21064778865 252362 Active 2022 Marilee Braden [address], [address] [place] [address] 5, [facility], L.L.C. 4 09:09:00 Adhesive capsulit is of right shoulder 62456595126 9109 Active 2022 Marileepapi Braden DO [address] [place] [address], [address], [facility], L.L.C. 4 09:09:00 Deformit y of foot 870493901 Active 2023 Marilee Braden DO [address] [place] [address], [address], [facility], L.L[facility]C. 4 09:09:00 Atrial fibrilla tion 77960055 Active 2023 ATRIAL FIBRILLA TION - Status is Inactive Marilee Braden DO [address] [place] [address], [phone], [facility], L.L.C. 4 09:09:01 Generali zed anxiety disorder 56746665 Active 2023 Marilee Braden DO [address] [place] [address], [address], [facility], L.L.C. 4 09:09:00 Advance care planning Active 2023 Suzanne santana, [facility], L.L.C. 5 15:46:26 Osteoart hritis 395633382 Active [address], [address], [facility], L.L.C. 4 09:09:00 Insomnia 285461046 Active 2023 Suzanne Holloway null, [facility], L.L.C. 5 15:46:26 Difficul ty walking 751490688 Active 2024 Suzanneanastacio Romanoe null, [facility], L.L.C. 5 15:46:26 Recurren t falls 125629929 Active 2024 Suzanne Holloway null, [facility] L.L.[facility]. 5 15:46:26 Chronic pain syndrome 980570370 Active 2024 Suzanneanastacio Romanoe null, [facility].L[facility]. 5 15:46:26 Seborrhe ic keratosi s 448861590 Active 2024 Mann Connelly max, [facility], L.L.C. 5 16:10:58 Vitamin D deficien cy 13822898 Active [address], [address], [facility], L.L.C. 5 08:00:37 Moderate mitral valve stenosis 937279884 Active [address], [address], [facility], L.L.C. 5 09:28:03 Bradycar noah 64799621 Active 2024 Marilee Braden, DO [address] [place] [address], [phone], [facility], L.L.C. 09:28:05 Acute hypoxemi c and hypercap charissa respirat ory failure 998812055 Active 2024 Marilee Braden [address], [address], [facility], L.L.C. 09:28:35 Problem Notes None recorded. Procedures Surgical History Date Name Laterality Status Provider Name and Address Organization Details Recorded Time 08/06/2022 Joint Inj Kenalog- Shoulder, Hip, Knee completed Marilee Braden [address], [address], [facility], L.L.C. 08/06/2022 15:36:46 06/13/2022 jr cryo warts completed Marilee Braden [address], [address], [facility], L.L.C. 06/14/2022 08:06:16 Imaging Results None recorded. Procedure Notes None recorded. Medical Equipment None Reported. Allergies Allergen ID Allergen Name Allergen Category Reaction Reaction Severity Criticality Documentation Date Start Date Code Code System Note Provider Name and Address Organization Details Recorded Time 2463 codeine medicatio n hives mild low 06/13/2022 2670 [facility] 07:53:20 Medications Name Sig Start Date Stop Date Status Note LastModified by Organization Details LastModified Time furosemid e 40 mg tablet TAKE 1 TABLET BY MOUTH DAILY NEEDED FOR SWELLING OR WEIGHT GAIN active Not Available Not Available No t Available metformin 500 mg tablet TAKE 1 TABLET BY MOUTH TWICE DAILY active Not Available Not Available No t Available carvedilo l 6.25 mg tablet Take 1 tablet by mouth twice daily for blood pressure and heart rate 2024 active Not Available Not Available Not Avai lable prednison e 10 mg tablet 06/13 completed Not Available Not Available Not Available atorvasta tin 20 mg tablet TAKE 1 TABLET BY MOUTH EVERY DAY active Not Available Not Available No t Available ropinirol e 1 mg tablet TAKE 1 TABLET BY MOUTH AT BEDTIME 04/08 completed Not Available Not Available Not Available albuterol sulfate 2.5 mg/3 mL (0.083 %) solution for nebulizat ion INHALE ONE vial EVERY 6 HOURS NEEDED FOR SHORTNES S OF BREATH or wheezing active Not Available Not Available No t Available trazodone 50 mg tablet Take 1 tablet every day by oral route at bedtime for 90 days. 07/14 completed Not Available Not Available Not Available azithromy michele 250 mg tablet TAKE 2 TABLETS (500 MG) BY ORAL ROUTE ONCE DAILY FOR 1 DAY THEN 1 TABLET (250 MG) BY ORAL ROUTE ONCE DAILY FOR 4 DAYS 05/13 completed Not Available Not Available Not Available hydrocodo ne 5 mg-acetam inophen 325 mg tablet TAKE 1 TABLET BY MOUTH EVERY 6 HOURS NEEDED FOR PAIN 07/14 completed Not Available Not Available Not Available meloxicam 15 mg tablet TAKE 1 TABLET BY MOUTH EVERY DAY. active Not Available Not Available No t Available prednison e 20 mg tablet take one tablet BY MOUTH TWICE DAILY for FIVE DAYS active Not Available Not Available No t Available ropinirol e 3 mg tablet TAKE 1 TABLET BY MOUTH EVERY DAY AT BEDTIME 03/16 completed Not Available Not Available Not Available glipizide ER 5 mg tablet, extended release 24 hr TAKE 1 TABLET BY MOUTH EVERY MORNING FOR BLOOD SUGAR active Not Available Not Available No t Available tramadol 50 mg tablet TAKE 1 TABLET BY MOUTH THREE TIMES DAILY NEEDED FOR PAIN active Not Available Not Available No t Available carvedilo l 3.125 mg tablet TAKE 1 TABLET BY MOUTH TWICE DAILY DIRECTED active Not Available Not Available No t Available meloxicam 7.5 mg tablet TAKE 1 TABLET BY MOUTH EVERY DAY FOR ARTHRITI S 05/13 completed Not Available Not Available Not Available betametha sone acetate and sodium phos 6 mg/mL suspensio n for injection Take 6 mg by injectio n route. 03/16 completed Not Available Not Available Not Available amoxicill in 875 mg tablet TAKE 1 TABLET BY MOUTH TWICE DAILY 05/13 completed Not Available Not Available Not Available citalopra m 20 mg tablet TAKE 1 TABLET BY MOUTH DAILY active Not Available Not Available No t Available ropinirol e 0.25 mg tablet daily 04/08 completed DM/sd; 62195; Recorded 04/10/19 12:17PM by Brittney Us (Authori ross through Marilee Braden DO), Annotati on/Adden dum; Refill Quantity : 180; Tablet; Not Available Not Available Not Available ropinirol e 2 mg tablet TAKE 1 TABLET BY MOUTH EVERY DAY AT BEDTIME 05/13 completed Not Available Not Available Not Available pantopraz ole 40 mg tablet,de layed release TAKE ONE TABLET BY MOUTH DAILY active Not Available Not Available No t Available acyclovir 5 % topical ointment APPLY TOPICALL Y TO THE AFFECTED AREA 6 TIMES PER DAY EVERY 3 HOURS active Not Available Not Available No t Available prednison e 50 mg tablet TAKE 1 TABLET BY MOUTH DAILY 06/13 completed Not Available Not Available Not Available losartan 25 mg tablet TAKE 1 TABLET BY MOUTH EVERY DAY active Not Available Not Available No t Available mupirocin 2 % topical ointment APPLY SMALL AMOUNT TOPICALL Y TO THE AFFECTED AREA THREE TIMES DAILY 07/14 completed Not Available Not Available Not Available oxycodone -acetamin ophen 7.5 mg-325 mg tablet TAKE ONE TABLET BY MOUTH EVERY 4 HOURS NEEDED FOR PAIN for SEVEN DAYS 07/14 completed Not Available Not Available Not Available ondansetr on 4 mg disintegr ating tablet DISSOLVE 1 TABLET ON THE TONGUE EVERY 8 HOURS FOR 3 DAYS NEEDED FOR NAUSEA OR VOMITING 05/13 completed Not Available Not Available Not Available amoxicill in 875 mg-potass ium clavulana te 125 mg tablet TAKE 1 TABLET BY MOUTH TWICE DAILY FOR 7 DAYS 10/23 completed Not Available Not Available Not Available ropinirol e 4 mg tablet TAKE 1 TABLET BY MOUTH DAILY AT BEDTIME FOR RESTLESS LEGS active Not Available Not Available No t Available neomycin 3.5 mg/g-poly myxin B 10,000 unit/g-de xameth 0.1 % eye oint APPLY RIBBON TO BOTH EYES DIRECTED TWICE DAILY active Not Available Not Available No t Available azithromy michele 500 mg tablet TAKE ONE TABLET BY MOUTH DAILY for THREE DAYS active Not Available Not Available No t Available fenofibra te 160 mg tablet TAKE 1 TABLET BY MOUTH EVERY DAY active Not Available Not Available No t Available meloxicam once a day for arthriti s 05/13 completed Recorded 04/04/19 8:46AM by Jenifer Ventura, Office Visit; Refill Quantity : 90; Tablet; Not Available Not Available Not Available carvedilo l two times daily 05/13 completed DM/sd; 63419; Recorded 04/10/19 12:17PM by Brittney Us (Authori zed through Marilee Braden DO), Annotati on/Adden dum; Refill Quantity : 180; Tablet; Not Available Not Available Not Available glipizide every AM for blood sugar 05/13 completed Recorded 04/04/19 9:33AM by Marilee Braden DO, Office Visit; Refill Quantity : 90; Tablet; Not Available Not Available Not Available Fenofibra te daily 05/13 completed DM/sd; 63497; Recorded 04/10/19 12:17PM by Brittney Us (Authori ross through Marilee Braden DO), Annotati on/Adden dum; Refill Quantity : 90; Tablet; Not Available Not Available Not Available Incruse Ellipta 62.5 mcg/actua tion powder for inhalatio n inhale one PUFF daily active Not Available Not Available No t Available Pradaxa 110 mg capsule TAKE 1 CAPSULE BY MOUTH TWICE DAILY 06/13 completed Not Available Not Available Not Available losartan potassium (bulk) daily 05/13 completed DM/sd; 19285; Recorded 04/10/19 12:17PM by Brittney Us (Authori ross through Marilee Braden DO), Annotati on/Adden dum; Refill Quantity : 90; Tablet; Not Available Not Available Not Available Breyna 160 mcg-4.5 mcg/actua tion HFA aerosol inhaler INHALE ONE PUFF TWICE DAILY active Not Available Not Available No t Available Vitals Date Recorded Body height Body mass index (BMI) Body weight Oxygen saturation Oxygen saturation in Arterial blood by Pulse oximetry Heart rate Respiratory rate Systolic And Diastolic Provider Name and Address Organization Details Last Updated DateTime 5 162.56 cm 32.6 kg/m2 32492.5 5 g 91 % 91 % 83 /min 18 /min 139/74 mm[Hg] [facility] 5 15:28:53 Date Recorded Body height Body mass index (BMI) Body weight Oxygen saturation Oxygen saturation in Arterial blood by Pulse oximetry Heart rate Respiratory rate Systolic And Diastolic Systolic And Diastolic Provider Name and Address Organization Details Last Updated DateTime 5 162.56 cm 31.8 kg/m2 02005.5 9 g 94 % 94 % 66 /min 18 /min 160/90 mm[Hg] 156/88 mm[Hg] [facility] 5 15:56:58 Date Recorded Body height Oxygen saturation Oxygen saturation in Arterial blood by Pulse oximetry Heart rate Respiratory rate Systolic And Diastolic Provider Name and Address Organization Details Last Updated DateTime 4 162.56 cm 93 % 93 % 72 /min 20 /min 138/70 mm[Hg] [facility] 4 14:35:06 Date Recorded Body height Oxygen saturation Oxygen saturation in Arterial blood by Pulse oximetry Heart rate Respiratory rate Systolic And Diastolic Provider Name and Address Organization Details Last Updated DateTime 4 162.56 cm 94 % 94 % 70 /min 18 /min 140/72 mm[Hg] JENIFER VENTURA [facility] 4 09:06:42 Date Recorded Body height Body mass index (BMI) Body weight Oxygen saturation Oxygen saturation in Arterial blood by Pulse oximetry Heart rate Respiratory rate Systolic And Diastolic Provider Name and Address Organization Details Last Updated DateTime 5 162.56 cm 35 kg/m2 92043.5 4 g 94 % 94 % 150 /min 18 /min 142/89 mm[Hg] [facility] 5 14:20:55 Social History Question Answer Notes LastModified by Organizat ion Details LastModified Time Tobacco Smoking Status Former Smoker Mann santana [facility] 12/02/2024 14:29:46 Do You Have An Advance Directive? Yes Information not available 12/02/2024 What Is Your Code Status? DNR Information not available 12/02/2024 When Did You Quit Smoking? 18+yearssin celastcigar ette Early Information not available 12/02/2024 Sex: Unknown Functional Status Question Answer Note LastModified by Organizat ion Details LastModified Time Do you use any illicit or recreational drugs? No [email or web address] Information not available 06/13/2022 Do you or have you ever used any other forms of tobacco or nicotine? No [email or web address] Information not available 06/13/2022 What is your level of alcohol consumption? None Information not available 06/13/2022 Mental Status None recorded. Family History Nothing Reported Notes:Brother: AL (MYOCARDIA L INFARCTION) : Mother; age 93, Father; age 57 Medical History No medical history recorded. Gynecological HistoryNo gynecological history recorded. Obstetrics History GPAL:G 0 P 0 0 0 0 Immunizations Vaccine Type Date Status Note Provider Nam e and Address Organization Details Recorded Time Pneumococcal conjugate PCV 13 0 completed Mann santana [facility] 07/17/2023 14:14:52 zoster recombinant 3 completed Marilee Braden, [address], [address], [facility] 08/13/2022 11:55:58 Influenza, adjuvanted, trivalent, PF 9 completed Mann santana [facility] 07/17/2023 14:14:52 Influenza, adjuvanted, quadrivalent, PF 2 completed Mann santana [facility] 07/17/2023 14:14:52 Influenza, adjuvanted, quadrivalent, PF 1 completed Mann Kiest [facility] 07/17/2023 14:14:52 COVID-19, mRNA, LNP-S, PF, 100 mcg/0.5mL dose or 50 mcg/0.25mL dose 1 completed Mann Hughesest [facility] 07/17/2023 14:14:52 COVID-19, mRNA, LNP-S, PF, 100 mcg/0.5mL dose or 50 mcg/0.25mL dose 1 completed Mann Hughesest [facility] 07/17/2023 14:14:52 COVID-19, mRNA, LNP-S, PF, 100 mcg/0.5mL dose or 50 mcg/0.25mL dose 1 completed Mann Connelly [facility] 07/17/2023 14:14:52 COVID-19, mRNA, LNP-S, bivalent, PF, 50 mcg/0.5 mL or 25mcg/0.25 mL dose 2 completed Mann Connelly [facility] 07/17/2023 14:14:52 pneumococcal polysaccharide PPV23 9 completed Mann Connelly [facility] 07/17/2023 14:14:52 zoster recombinant 3 completed JENIFER VENTURA [facility] 10/08/2022 12:47:09 Influenza, adjuvanted, quadrivalent, PF 3 completed Not Available [facility] 12/02/2024 14:05:29 Pneumococcal conjugate PCV20, polysaccharide HRO380 conjugate, adjuvant, PF 4 completed Suzanne Holloway [facility] 07/17/2023 17:25:13 Influenza, adjuvanted, trivalent, PF 4 completed Marilee Braden, DO [address] [place] [address], [phone], [facility], [place]. 10/24/2023 09:09:59 Past Encounters Encounter ID Performer Location Encounter Start Date Encounter Closed Date Diagnosis/Indication Diagnosis SNOMED-CT Code Diagnosis ICD10 Code Diagnosis IMO Codes Diagnosis Note [id number] Marilee Braden DO [facility] ([facility]) [address] [place] [id number] 06/13/2022 09:34:09 06/13/2022 20:00:53 Diabetes mellitus 67746623 E11.69 A1C was 8.9 in mar. we started gipizide. pt not monitoring glucose and refuses testing supplies.c ounseled on diet, exercise. repeat labs with fu in 6 wks. Restless l egs syndrome 14355249 G25.81 not controlled . will incresae requip to 1mg at night. decrease tramadol to 1 or none eaach evening. Return to office with no improvemen t or any problems. Go to ER with severe worsening or severe problems. Essential hypertension 00532201 I10 stable Inflamed s eborrheic keratosis 383101779 L82.0 cryotherap y today on singe right shoulder lesion, 1.5cmI counseled the patient on wound care including expectatio ns. We discussed signs and symptoms of worsening, infection, nonhealing , and other problems. Precaution s given. Patient expressed verbal understand ing. [id number] MARIANA TRAORE [facility] ([facility]) [address] [place] [id number] 5 06/29/2022 17:44:20 08/21/2022 08:29:16 Pain of left calf 9192322192 966128 M79.662 Encouraged patient to continue taking tramadol as prescribed . Discussed with patient that cannot give a muscle relaxer while she is on the tramadol. Patient verbalized understand ing. Gave examples of stretches to do at home and encouraged continued use of voltaren gel and heat packs. Keep appointmen t with podiatry next month. [id number] Marilee Braden DO [facility] ([facility]) [address] [place] [id number] 5 07/31/2022 11:04:51 07/31/2022 14:21:39 Diabetes mellitus 59912023 E11.69 A1C was 8.9 in mar improved to 6.6 in july 2022.. we started gipizide. pt not monitoring glucose and refuses testing supplies. Essential hypertension 51910385 I10 stable Pain of ri ght shoulder joint [id number] 6137409 M25.511 xray today. prednisone burst. increase mobic to 15mg daily. consider injection or PT pending xray. [id number] Marilee Braden DO [facility] ([facility]) [address] [place] [id number] 5 08/06/2022 15:03:30 08/06/2022 19:31:43 Pain of right shoulder joint [id number] 6474503 M25.511 I reviewed and discussed xray results with pt. I reviewed images with pt and DIL.. all questions addresssed .After detailed discussion on diagnosis and treatment options, pt expressed verbal desire to proceed today with procedure and expressed verbal understand ing of options, risks, procedure, and expectatio ns.joint injection givenPt tolerated the procedure well. Aftercare instructio ns with expectatio ns and precuasion s were discussed. Adhesive c apsulitis of right shoulder [id number] 60495 M75.01 counseled pt on dx and treatment options. pt declines PT and eval by ortho. agrees to injection and home exercises. [id number] Marilee Braden DO [facility] ([facility]) [address] [place] [id number] 5 08/13/2022 13:39:42 08/13/2022 14:40:25 [id number] Marilee Braden DO [facility]) [address] [place] [address] [id number] 5 09/04/2022 10:52:28 09/04/2022 11:48:01 Pain of right shoulder joint [id number] 7053301 M25.511 Kenalog injection helped for about 1 mt, now worse than prior. mod/severe pain. ROM and weakness both worse. will start PT. continue nsaids. will also proceed with referral for ortho due to inabily to perform ADLs. Adhesive c apsulitis of right shoulder [id number] 19021 M75.01 worsening. PT and eval by ortho. Hypercholesterolemia 136 61391 E78.00 [id number] Marilee Braden DO [facility] ([facility]) [address] [place] [address] [id number] 5 10/01/2022 13:47:07 10/01/2022 17:08:00 Type 2 diabetes mellitus 45418378 E11.69 [id number] Marilee Braden DO [facility] ([facility]) [address] [place] [id number] 5 11/08/2022 09:50:16 11/08/2022 15:09:38 Acute bronchitis 77503012 J20.9 Not resolving. With some chest wall and pleuritic pain. Will get chest x-ray. Start Z-Kye with prednisone . Monitor for worsening symptoms. Restless l egs syndrome 30297506 G25.81 Ropinirole helping a little bit. Will increase from 1 mg to 1.5 mg for the next week and consider bumping up to 2 mg after that. Patient will call and let us know how she is doing and we will update her medication s at that time. [id number] Marilee Braden DO [facility] ([facility]) [address] [place] [address] [id number] 5 05/14/2023 13:53:54 05/14/2023 18:12:52 Hypercholesterolemia 39874376 E78.00 Stable. Will repeat labs. Continue Atorvastat in. Counseled on diet and exericse. Essential hypertension 04481850 I10 stable Generalize d anxiety disorder 51547564 F41.1 Diabetes mellitus 680177 09 E11.69 E11.42 A1C was 8.9 in mar improved to 6.6 in july 2022.. we started gipizide. pt not monitoring glucose and refuses testing supplies. Pain of ri ght shoulder joint 8900010783 3836141 M25.511 Kenalog injection helped for about 1 mt, now worse than prior. mod/severe pain. ROM and weakness both worse. will start PT. continue nsaids. will also proceed with referral for ortho due to inabily to perform ADLs. Restless l egs syndrome 94545574 G25.81 Ropinirole helping a little bit. Will increase from 1 mg to 1.5 mg for the next week and consider bumping up to 2 mg after that. Patient will call and let us know how she is doing and we will update her medication s at that time. Chronic pain syndrome 37 0889440 G89.4 Deformity of foot 058547 004 M21.969 Charcot deformity B/l feet. 2/2 diabetes.. counseled. pt to monitor feet closely. support hose and diabetic shoes daily. Atrial fibrillation 4943 6004 I48.91 stable. [id number] Marilee Braden DO [facility] ([facility]) [address] [place] [address] [id number] 5 07/17/2023 11:50:30 07/19/2023 21:17:30 Active or passive immunization 952079438 Z23 Prevnar 20 today. she is UTD on shingles, declines any covid vaccinatio ns. Insomnia 983203078 G47.0 0 Continue Trazodone. Osteoarthritis 804541522 M19.90 Continue Meloxicam, Tramadol as needed. Hyperlipidemia 57796657 E78.5 Continues Atorvastat in, Fenofibrat e. Essential hypertension 66653682 I10 stable, continue Carvedilol . Generalize d anxiety disorder 97150713 F41.1 stable, continue Citalopram . Atrial fibrillation 4943 6004 I48.91 stable. Advance care planning 71 9433533 Z71.89 I discussed advanced care planning with patient in detail today. We spent 16 minutes discussing this. All questions were addressed. Code status completed and added to chart. She requests DNR, daughter present today. [id number] Marilee Braden DO [facility] ([facility]) [address] [place] [address] [id number] 5 09/26/2023 11:50:21 09/26/2023 13:00:58 Active or passive immunization 944031286 Z23 Prevnar 20 today. she is UTD on shingles, declines any covid vaccinatio ns. Insomnia 284084476 G47.0 0 Continue Trazodone. Osteoarthritis 998327413 M19.90 Continue Meloxicam, Tramadol as needed. Hyperlipidemia 81958028 E78.5 Continues Atorvastat in, Fenofibrat e. Essential hypertension 45776809 I10 stable, continue Carvedilol . Generalize d anxiety disorder 91362603 F41.1 stable, continue Citalopram . Atrial fibrillation 4943 6004 I48.91 stable. Advance care planning 71 6275681 Z71.89 I discussed advanced care planning with patient in detail today. We spent 16 minutes discussing this. All questions were addressed. Code status completed and added to chart. She requests DNR, daughter present today. Diabetes mellitus 734187 09 E11.69 E11.42 A1C was 8.9 in mar improved to 6.6 in july 2022.. we started gipizide. pt not monitoring glucose and refuses testing supplies. [id number] Marilee Braden DO [facility] ([facility]) [address] [place] [address] [id number] 5 10/08/2023 14:23:53 10/08/2023 17:08:17 Cellulitis 643934074 L03.90 10/08/23- RLE magana, Counseled abx, Mupirocin, monitor for worsening redness, signs of infection. Counseled pt on dx and medication , pt is to return if no significan t improvemen t or go to ER if any severe symptoms or worsening. Restless l egs syndrome 33405841 G25.81 10/08/23- deteriorat ing, counseled we can increased Ropinirole from 3mg to 4mg. Osteoarthritis 932102106 M19.90 Continue Meloxicam, Tramadol as needed, counseled Tylenol ES x2 tabs BID. [id number] Marilee Braden DO [facility] ([facility]) [address] [place] [address] [id number] 5 10/24/2023 08:57:05 10/24/2023 12:37:49 Chronic pain syndrome 112641615 G89.4 severe multijoint osteoarthr itis continues to worsen. Continue Tylenol, meloxicam, will increase tramadol to 3 times a day. She has not tolerated gabapentin in the past. We will give IM steroids to help with acute Flare and consider doing this 2-4 times a year as needed for severe flareups. Osteoarthritis 977964964 M19.90 Continue Meloxicam, T increase ramadol as needed, counseled Tylenol ES x2 tabs BID.Counse led on using intramuscu lar corticoste roids rarely to help with acute flares. Will give today and if this helps we will consider doing 2-4 times a year. [id number] Marilee Braden DO [facility] ([facility]) [address] [place] [address] [id number] 5 03/16/2024 14:50:39 03/17/2024 12:19:06 Recurrent falls 508815187 R29.6 counseled. will star PT at [place] . counseled Difficulty walking 77236 2002 R26.2 counseled. will [facility] at [place] . counseled Diabetes mellitus 243874 09 E11.69 E11.42 I reviewed most recent labs with pt as per above. We reconciled medication s. We discussed diet, exercise, weight management . We discussed routine eye care and foot care. Pt to monitor glucose regularly. continue current medication s: glipizider epeat labs today Essential hypertension 88425281 I10 stable, continue Carvedilol , losartan Generalize d anxiety disorder 04703322 F41.1 stable, continue Citalopram . Hyperlipidemia 30602568 E78.5 Continues Atorvastat in, Fenofibrat e. Atrial fibrillation 4943 6004 I48.91 stable. continue ASA. had bleeding issues in the past on eliquis. Restless l egs syndrome 62712951 G25.81 10/08/23- deteriorat ing, counseled we can increased Ropinirole from 3mg to 4mg. Insomnia 891765168 G47.0 0 Continue Trazodone. Chronic pain syndrome 37 9803709 G89.4 severe multijoint osteoarthr itis continues to worsen. Continue Tylenol, meloxicam, .Hydrocodo ne prn [id number] Marilee Braden DO [facility] ([facility]) [address] [place] [address] 07/14/2024 15:13:32 07/15/2024 09:49:17 Diabetes mellitus 93686485 E11.69 E11.42 Lab today. Continues Glipizide. Atrial fibrillation 4943 6004 I48.91 stable. continue ASA. had bleeding issues in the past on eliquis. Hyperlipidemia 03128230 E78.5 Continues Atorvastat in, Fenofibrat e. lab today. Fatigue 55680189 R53.83 07163726 Lab today. Heart murmur 36069620 R0 1.1 97282 Echo today. Seborrheic keratosis 394 170283 L82.1 [id number] 07/14/24: numerous areas on back, referral to Derm, pt ok with Dr. Dickens locally. [id number] Marilee Braden DO [facility] ([facility]) [address] [place] [id number] 5 12/02/2024 14:04:43 12/07/2024 10:05:52 Acute hypoxemic and hypercapnic respiratory failure 049081519 J96.01 J96.02 [id number] 12/02/24: Continue home O2, PFT scheduled tomorrow, then f/u with Pulm. Essential hypertension 80918690 I10 12/02/24: Counseled pt and daughter if HR staying > 120's she needs to return to ER. Explained HR is remaining 130-150's in clinic today, I recommend she return to the ER, she needs IV medication to get this done. Pt absolutely refuses to go to the hospital. We will increase Carvedilol to 6.25mg, to take BID. Atrial fibrillation 4943 6003 I48.91 12/02/24: with new and progressin g arrhythmia s. pt with know hx of paroxysmal Afib for years, not on anticoagul ation due to hx of significan t hemorrage while on them. She was but admitted last week for symptomati c bradycardi a, no Afib on tele while admitted. However, pt in Afib with RVR on exam today. running 120-140 bpm. She is not in any significan t distress. Daughter present today. I have counseled her on her DX and acute medical state. She has refused to go to the hospital or ER. she wants to go home. She understand s she could from her acute and chronic heart issues. Her daughter is present and wants to respect mom's wishes. We discussed EDIN status at length. She wants to be DNR. paperwork signed here today. Daughter will take her home today. we will work on getting her in with cardiology for f/u and further discussion on treatment options and her desires on how much and what medical care she wants. If she changes her mind, or if she experience s worsening symptoms, signicant CP or worsening SOB, she should go to ER. continue ASA. had bleeding issues in the past on eliquis.Co ntinue with Event Monitor, keep appt with Cardio on 12/24/24. Bradycardia 69372504 R00 .1 02341 pt with with new and progressin g arrhythmia s. pt with know hx of paroxysmal Afib for years, not on anticoagul ation due to hx of significan t hemorrage while on them. She was but admitted last week for symptomati c bradycardi a, no Afib on tele while admitted. However, pt in Afib with RVR on exam today. running 120-140 bpm. She is not in any significan t distress. Daughter present today. I have counseled her on her DX and acute medical state. She has refused to go to the hospital or ER. she wants to go home. She understand s she could from her acute and chronic heart issues. Her daughter is present and wants to respect mom's wishes. We discussed EDIN status at length. She wants to be DNR. paperwork signed here today. Daughter will take her home today. we will work on getting her in with cardiology for f/u and further discussion on treatment options and her desires on how much and what medical care she wants. If she changes her mind, or if she experience s worsening symptoms, signicant CP or worsening SOB, she should go to ER. Moderate m itral valve stenosis 674430009 I05.0 798631 Per echo,with new and progressin g arrhythmia s. pt with know hx of paroxysmal Afib for years, not on anticoagul ation due to hx of significan t hemorrage while on them. She was but admitted last week for symptomati c bradycardi a, no Afib on tele while admitted. However, pt in Afib with RVR on exam today. running 120-140 bpm. She is not in any significan t distress. Daughter present today. I have counseled her on her DX and acute medical state. She has refused to go to the hospital or ER. she wants to go home. She understand s she could from her acute and chronic heart issues. Her daughter is present and wants to respect mom's wishes. We discussed DRN status at length. She wants to be DNR. paperwork signed here today. Daughter will take her home today. we will work on getting her in with cardiology for f/u and further discussion on treatment options and her desires on how much and what medical care she wants. If she changes her mind, or if she experience s worsening symptoms, signicant CP or worsening SOB, she should go to ER. Health Concerns Section Related Observation LastModified by Organization Detai ls LastModified Time None Recorded Concern Status LastModified by Organization Details LastModified Time None Recorded Advance Directives Directive Y: Payers Insurance Date Sequence Insurance Name Policy Number Policy Smith Covered Member ID Smith Member ID Guarantor Name 12/13/2024 1 [place]ARE [place]: S Nicolle Chavarria [id number] 2 Nicolle Chavarria 12/13/2024 [facility] [id number] Nicolle Chavarria [id number] 1 Nicolle Chavarria 12/13/2024 [place] - [facility] (MEDICARE) Nicolle Chavarria [id number] 2 Nicolle Chavarria Notes Date Note Type Note Provider Name and Address Organization Details Recorded Time 4 text/html ROS as noted in the HPI Pt presents for acute illness, RLE injury 3 days ago. She was on her scooter in the bathroom and ran into a cabinet with her RLE, resulting in wound to the right anterior magaan. She also c/o pain to the right hip and leg. Also c/o generalized hurting all over.She does have Arthritis, taking Meloxicam 15mg daily, Tylenol ES x2 tabs occasionally, Tramadol 50mg at hs, occasionally in the am ( more frequently in the am lately). RLS also bothering her. She continues Ropinirole 3mg at hs. Marilee Braden, DO [address] [place] [address], [phone], [facility], [place]an 10/20/2023 16:56:49 4 text/html Joint PainReported by PatientHPIFor quality, patient reportssharp. For severity, patient reportsworsening. For location, patient reportsbilateral hipandbilateral knee. For duration, patient reportspresent for >12 months. For timing, patient reportsconstant.ROS as noted in the HPI pt c/o b/l hip and knee pain, right is worse than left. having trouble sleeping at night due to pain, having to sleep in recliner. pain has increased over the last 2-4 months sharp pain in left ankle, intermittent pt c/o BLE pain, starting in hips and knees. 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 Marilee Braden DO [address] [place], [address], [facility], LChrisLChrisC. 10/24/2023 09:26:28 5 text/html ROS as noted in the HPI Pt presents for leg pain and weakness Can only walk about 2 steps, the pain and weakness prevents her from ambulating. She can transfer from her wheelchair to chair and that is the most of walking she can do.she has bumped her legs in to furniture lately. she admits to multiple falls the last 6 mts. last was 1-2 mts ago. no head injury or major injury at that event. She is wanting to get orders for therapy at [place] to get PT for reginaldShe moved in to [place] july of 2023. doing well there. enjoying it. Diabetes: Pt continues with same diabetes meds, tolerating well. Checking glucose at home.fasting home glucose: mid 100sNo really low or really high glucose levels or symptoms of hypoglycemia.Pt denies any new foot problems or visual changes. Mediations: glipizide Marilee DO [address] [place], [phone], [facility], L[facility]. 03/16/2024 15:50:56 5 text/html ROS as noted in the HPI Pt presents for weakness and fatigue She c/o being tired all the time and no energy for 3 months. She is wanting to discuss if there is a vitamin she needs that can help She has a spot on each cheek that is dry, just below the eye, has been applying Aquaphor to treat it.she also has spots on her back she wants checked She c/o cough/congestion that has settled in her chest. She is coughing up yellow phlegm for over a weekShe denies SOB or wheezing. Marilee Braden, DO [address] [place] [address], [phone], [facility], [place] 07/14/2024 16:50:13 5 text/html ROS as noted in the HPI Pt presents for hospital f/u Diagnoses at DischargeDischarge Diagnosis1. Acute respiratory failure with hypoxia and hypercapnia:2. Hypertension:3. Frequent PVCs:4. Gastro-esophageal reflux disease without esophagitis:5. Hyperlipidemia, unspecified:6. Depression with anxiety:7. COPD (chronic obstructive pulmonary disease):8. Mitral valve stenosis:Reason for VisitReason for Visit: sob Brief History:Nicolle Chavarria is a 89 year old female With past medical history of atrial fibrillation hypertension came to emergency department due to acute shortness ofbreath. The patient does not require home oxygen however when she came to ER she was found to have shortness of breath that required 4 L of oxygen through nasal cannula. no orthopnea or PND.ABG showed hypercapnia of 62.9 with pred respacidsosis, no previous sleep apnea or OHS history of cpap use, she was placed onBiPAP upon admission and remained on it overnight. BNP was noted to be 2300. CTA of the chest was negative for PE. Showed bilateral infiltrates concerning for pulmonary edema versus atypical infection. She received IV Lasix 40 mg and diuresed well. However on 11/25/2024 she developed diffuse expiratory bilateralwheezing for which she was initiated on steroids and scheduled nebulization. Overall concern for perhaps undiagnosed COPD with exacerbation given hypercapniaupon admission.. PFTs have been ordered as outpatient to further assess this possibility. To be followed up with PCP and pulmonology referral if appropriatebased on PFT. Additionally ordered for a sleep study. Echo showed mild mitralstenosis with a gradient of 4.1. Per chart there was a reported history of atrial fibrillation. Telemetry monitoring during hospital course did not show any A-fib. She was noted to have sinus bradycardia with heart rate as low as 42at 1 point for which carvedilol was dose adjusted down from 3.125 mg twice dailyto 3.125 mg daily. Her heart rate has been maintained between 56-90 since making this change. She is asymptomatic with the bradycardia. She improved with the above interventions and is being discharged today in improved conditionwith optimized inhalers, short course of p.o. prednisone, 40 mg Lasix as needed and referral to follow-up with cardiology and PCP as an outpatient. Event monitor was arranged at discharge given the history of A-fib which would be relevant with mitral stenosis as being valvular A-fib if present. Prescriptions:Newazithromyc in 250 mg [id number] mg PO DAILY 3 Days Qty: 3 0RFbudesonide-formoterol [Symbicort] 160-4.5 mcg/actuation HFA aerosol inhaler1 inh inhalation BID Qty: 10.2 0RFalbuterol sulfate 1.25 mg/3 mL solution for nebulization2.5 mg inhalation Q6H PRN (Reason: shortness of breath or wheezing) Qty: 75 0RFprednisone 20 mg [id number] mg PO BID 5 Days Qty: 10 0RFtiotropium bromide 18 mcg capsule, w/inhalation device1 cap inhalation DAILY Qty: 30 0RFRx Instructions:puncture 1 cap using device; one dose = 2 inhalationspantoprazole [Protonix] 40 mg tablet,delayed release (DR/EC)40 mg PO DAILY 28 Days Qty: 30 0RFfurosemide [Lasix] 40 mg [id number] mg PO DAILY PRN (Reason: edema or weight gain) Qty: 30 0RF Other Ambulatory Orders:DME: Nebulizer with Neb Kit (Order)Location: None SelectedOrdered By: Amee HerreraaDME: Oxygen (Order)Location: None SelectedOrdered By: Amee Baileyulmonary Function Screen with Bronchodilator (Routine) Timeframe: 2 DaysFac[facility] Location: Respiratory TherapyOrdered By: Amee Dowling/Event Monitor 14 Days (Routine) Timeframe: 1 DayFacility: [facility] - Location: RadiologyOrdered By: Amee Barker Study/Titration (Routine) Timeframe: 2 WeeksFacility: [facility] CenterOrdered By: Amee Noble She went to the ER d/t SOB and O2 sat 66% RAshjayce was admitted on 11/23/24 and d/c'd 11/26/24 She was on the Bipap. Dc'd home on O2 at 3L n/c. She is wearing heart monitor, however they are having issues with the guest services coordinator.HR has been 128-130's last night per daughter, she refused to go to the hospital. Today HR is 130-150's in clinic.Pt reports she can't feel her heart racing. F/u scheduled with Dr. Deras, Cardio, on 12/24/24.Scheduled for PFT tomorrow, 12/03/24, supposed to f/u with Dr. Clinton Russell afterward. Currently on Asa 81mg daily, has had issues with Eliquis in the past for her Afib. Pt is a former smoker, quit approx 35 years ago. She had a fall at home the day before she went to the ER. She has bruising on her right buttock Confirmed CODE STATUS= DNR. Daughter will bring updated paperwork by for our records. Marilee Braden, DO [address] [place] [address], [phone], [facility] 12/07/2024 09:31:45 OBGyn Episode No OBEpisode recorded.
--- OUTSIDE RECORDS SUMMARY | 2024-12-15 19:10 | XMS_ITS | Clinical Summary ---
Author Organization [facility] Address [address] [place] [address] Care Team Providers Care [employer] As[employer]er Name Role Phone Unavailable Primary Care Provider [...]
[2024-12-15 19:35] LABS: Hematocrit 36.9 % (36-47); Hemoglobin 10.50 g/dL (11.27-16.99); Mean Corpuscular HGB Conc 28.5 g/dL (30-55); Mean Corpuscular Hemoglobin 27.9 pg (27-33); Mean Corpuscular Volume 98.1 fl (85-98); Nucleated Red Blood Cells % 0 %; Platelet Count 196 10^3/cmm (157-399); Red Blood Count 3.76 10^6/uL (3.85-5.65); White Blood Count 7.68 10^3/uL (3.29-11.43)
[2024-12-15 19:39] LABS: ABG PH Result 7.32 (7.35-7.45); Alveolar-Arterial Oxygen Gradi 19.4 mmHg (5-10); Arterial Blood Gas Hematocrit 33.6 % (37-47); Blood Gas Allen Test Pos; Blood Gas LPM 6.0 %; Blood Gas Operator Identificat gerca; Blood Gas Sample Site Brachial, left; Blood Gas Sample Type Arterial; Carboxyhemoglobin 1.7 %THgb (0.4-20.1); Glucose Level-ABG 189.0 mg/dL (70-115); HCO3 ABG 36.4 mmol/L (22-26); Ionized Calcium Level - ABG 1.4 mmol/L (1.1-1.4); Methemoglobin 0.4 % (0.4-1.5); Oxygen Saturation ABG 87.5; PO2 ABG 53.4 mmHg (80.0-100.0); PO2 FiO2 Ratio Arterial Blood 133; Potassium Level - ABG 5.1 mmol/L (3.5-5.0); Sodium Level - ABG 144.0 mmol/L (131-143)
[2024-12-15 19:40] LABS: ABG PCO2 70.1 mmHg (35-45)
[2024-12-15 19:48] LABS: Lactic Sepsis W/Reflex 1.0 mmol/L (0.5-2.2)
[2024-12-15 19:49] LABS: Troponin(5th) Baseline 35 ng/L (0-10)
[2024-12-15 19:58] LABS: NT Pro B Type Natriuretic Pept 829 pg/mL (0-450); Procalcitonin 0.10 ng/mL (0-0.5)
[2024-12-15 20:11] LABS: Alanine Aminotransferase 27 U/L (0-33); Albumin Level 3.9 g/dL (3.5-5.2); Alkaline Phosphatase 54 U/L (35-105); Anion Gap 15.2 (5-19); Aspartate Amino Transferase 19 U/L (0-32); Blood Urea Nitrogen 41 mg/dL (8-23); Calcium 10.1 mg/dL (8.5-10.5); Carbon Dioxide 33 mmol/L (22-29); Chloride 101 mmol/L (98-107); Globulin 2.4 g/dL (1.3-4.6); Glucose 177 mg/dL (65-115); Osmolality Calculated 312 mOsm/kg (285-295); Potassium 5.2 mmol/L (3.5-5.1); Sodium 144 mmol/L (136-145); Total Protein 6.3 g/dL (6.6-8.7)
[2024-12-15 20:16] LABS: Respiratory Syncytial Virus Ce NEGATIVE (Negative); SARS-CoV-2 PCR NEGATIVE (Negative)
--- NOTE | 2024-12-15 20:49 | CTR_ITS ---
PROCEDURE INFORMATION: Exam: CTA Chest With Contrast Exam date and time: 12/15/2024 9:32 PM Age: 89 years old Clinical indication: Other: Respiratory distress TECHNIQUE: Imaging protocol: Computed tomographic angiography of the chest with contrast. Exam focused on the arteries. 3D rendering (Not supervised by radiologist): MIP and/or 3D reconstructed images were created by the technologist. Radiation optimization: All CT scans at this facility use at least one of these dose optimization techniques: automated exposure control; mA and/or kV adjustment per patient size (includes targeted exams where dose is matched to clinical indication); or iterative reconstruction. Contrast material: [id number]; Contrast volume: 100 ml; Contrast route: INTRAVENOUS (IV); COMPARISON: CT angio chest PE protcl [id number] 11/24/2024 12:02 AM RADIATION DOSE METRICS: Total DLP (mGy-cm): 547.87 FINDINGS: Pulmonary arteries: There is no acute or chronic pulmonary embolism. Aorta: Unremarkable. No aortic aneurysm. No aortic dissection. Lungs: There is compressive consolidative appearance in the posterior upper lobes atelectasis or pneumonia could be considered correlate and follow-up as indicated Pleural spaces: There are findings of moderate-sized bilateral pleural effusions present. There are findings of interstitial pulmonary edema present no pneumothorax Heart: Unremarkable. No cardiomegaly. No pericardial effusion. Lymph nodes: Unremarkable. No enlarged lymph nodes. Gallbladder and biliary ducts: Gallbladder surgically removed Bones/joints: Unremarkable. No acute fracture. Soft tissues: Unremarkable. Other findings: There is no aneurysm or dissection. CT/CT angio chest PE protcl [id number] IMPRESSION: No findings present to suggest aneurysm or dissection Findings of decompensated congestive heart failure pulmonary edema pleural effusions pulmonary edema. Multifocal consolidation lung parenchyma atelectasis or pneumonia could be considered correlate and follow-up as indicated.
[2024-12-15] MEDS: iohexol 350 mg/mL 500 mL Btl (per mL) IV (21:37)
[2024-12-15] MEDS: linezolid premix 600 MG/300 ML PREMIX 300 MG IV (21:40)
[2024-12-15] MEDS: FUROsemide 10 mg/mL SDV 10mL 80 MG IVP (21:40)
[2024-12-15 22:27] LABS: Troponin 5 2HR 29.81 ng/L (0-10); Troponin 5 2HR Delta -5.19 ABS# (0-10)
--- NOTE | 2024-12-15 23:17 | PM.HP ---
Providers/Chief Complaint Admitting Physician: MARIA C DICKENS DO--admitted before midnight Primary Care Provider: Savage Pendleton DO Chief Complaint: sob History of Present Illness Nicolle Chavarria is a 89 year old female with medical history significant for CHF COPD obstructive sleep apnea who presented to the emergency room because of extreme shortness of breath and with increasing oxygen. Patient is on 2 L of oxygen at home and this was increased to 5 L and still not feeling well. Patient had presented to the emergency room for further evaluation. Chest x-ray showed a radiographic sign of bilateral pleural effusion pneumonia that is multifocal. And CHF that is worsening. Patient was here 2 weeks ago and this time imaging studies showed worsening CHF and pneumonia. Patient at this time is being admitted to stepdown unit requiring BiPAP. Patient is hypoxic hypercapnic respiratory failure pH was 7.32 pCO2 was 70.1 PaO2 was 53.4 bicarb was 36.4. In the emergency room the attending gave empirically meropenem and Zyvox for antibiotics. Patient was placed on BiPAP. I have seen and evaluated patient I continue empiric antibiotics with azithromycin and ceftriaxone and initiated some steroid therapy and diuretics with Lasix Review of Systems Narrative: System review significant for cardiopulmonary disorder and failure upon 10 organ system reviewed. Medications/Allergies Home Medications ?Medication ?Instructions ?Recorded ?Confirmed ?Last Taken ?Type atorvastatin 20 mg tablet 20 mg PO DAILY 10/05/20 11/24/24 11/23/24 History citalopram 20 mg tablet 20 mg PO DAILY 10/05/20 11/24/24 11/23/24 History fenofibrate 160 mg tablet 160 mg PO DAILY 10/05/20 11/24/24 11/23/24 History losartan 25 mg tablet 25 mg PO DAILY 10/05/20 11/24/24 11/23/24 History spectrum afo with lateral T strap #1 ea 10/05/20 11/24/24 Unknown Rx trazodone 50 mg tablet 50 mg PO BEDTIME 01/22/22 11/24/24 11/23/24 History aspirin 81 mg tablet,delayed 81 mg PO DAILY 01/24/23 11/24/24 11/23/24 History release glipizide 5 mg tablet, extended 5 mg PO DAILY 01/24/23 11/24/24 11/23/24 History release 24 hr miheeijf-sfy-zjioi ac 400 1 tab PO DAILY 01/24/23 11/24/24 11/23/24 History mcg-calcium carb 500 mg-vit K1 20 mcg tablet (Women's 50 Plus Multivitamin) ropinirole 1 mg tablet 3 mg PO DAILY 01/24/23 11/24/24 11/23/24 History tramadol 50 mg tablet 50 mg PO Q6H PRN pain #20 tabs 04/10/23 11/24/24 11/23/24 Rx CAM BOOT to right #1 ea 11/25/23 11/24/24 Unknown Rx ASO #1 ea 01/07/24 11/24/24 Unknown Rx albuterol sulfate 1.25 mg/3 mL 2.5 mg (6 mL) inhalation Q6H PRN 11/26/24 Unknown Rx solution for nebulization shortness of breath or wheezing #75 mL budesonide-formoterol HFA 160 1 inh inhalation BID #10.2 grams 11/26/24 Unknown Rx mcg-4.5 mcg/actuation aerosol inhaler (Symbicort) carvedilol 3.125 mg tablet 3.125 mg PO DAILY 30 days #30 tabs 11/26/24 11/24/24 11/23/24 Rx furosemide 40 mg tablet (Lasix) 40 mg PO DAILY PRN edema or weight 11/26/24 Unknown Rx gain #30 tabs pantoprazole 40 mg tablet,delayed 40 mg PO DAILY 4 weeks #30 tabs 11/26/24 Unknown Rx release (Protonix) tiotropium bromide 18 mcg capsule 1 cap inhalation DAILY #30 11/26/24 Unknown Rx with inhalation device inhalations Allergies Allergy/AdvReac Type Severity Reaction Status Date / Time codeine Allergy Mild Rash Verified 12/15/24 19:15 hydrocodone Allergy Mild ALGY-Rash Verified 12/15/24 19:15 PFSH Acute PFSH: Medical History (Updated 12/15/24 @ 23:19 by Maria C Dickens MD) Depression with anxiety Hyperlipidemia, unspecified Gastro-esophageal reflux disease without esophagitis Diverticulitis Hypertension Atrial fibrillation Surgical History H/O: hysterectomy Hx of cholecystectomy H/O shoulder surgery Social History Smoking and tobacco/nicotine status: former use of tobacco/nicotine Alcohol intake: current Alcohol intake frequency: holidays/special occasions only Vitals/I&O/Wt Last Vital Signs Temp 97.8 F 12/15/24 18:57 Pulse 66 12/15/24 23:00 Resp 16 12/15/24 23:00 BP 157/67 12/15/24 22:23 Pulse Ox 91 12/15/24 23:00 O2 Del Method BiPAP 12/15/24 22:52 O2 Flow Rate 6 12/15/24 22:29 FiO2 50 12/15/24 22:53 Weight last 48 hrs Weight 90.718 kg Physical Exam Narrative: Patient seen and evaluated in the emergency room on BiPAP HEENT normocephalic/atraumatic neck neck is supple cardiovascular heart rate is regular lungs are coarse breath sounds with crackles at the bases. Abdomen soft. Obese abdomen unremarkable extremities withedema neurology has no focality lab studies lab studies reviewed and noted as per below. Data 12/16/24 01:27 12/16/24 01:27 Micro: Microbiology 12/15/24 19:19 Blood Culture - Preliminary Blood SPECIMEN COLLECTED 12/15/24 19:19 Blood Culture - Preliminary Blood SPECIMEN COLLECTED A&P Assessment and plan 1. Acute hypoxic on chronic hypercapnic respiratory failure: 2. CHF (congestive heart failure): 3. COPD with acute exacerbation: 4. Flash pulmonary edema: 5. Acute hypercapnic respiratory failure: 6. Acute on chronic hypoxic respiratory failure: 7. Sleep apnea: 8. Mitral valve stenosis: 9. Hyperlipidemia, unspecified: 10. Depression with anxiety: 11. COPD (chronic obstructive pulmonary disease): Plan: Hypoxic hypercapnic respiratory failure with increasing oxygen demand requiring BiPAP - Admit to stepdown unit for use of BiPAP - Continue to treat and optimize - Patient with underlying reactive COPD exacerbation with bronchospasm - Steroid therapy initiated - Supplemental oxygen at this time - Antibiotics initiated with azithromycin and ceftriaxone - Patient also got meropenem and Zyvox from the emergency room attending in the emergency room - Nebulizing treatment Multifocal pneumonia - Continue empiric antibiotics of azithromycin and ceftriaxone - Continue nebulizing treatments and supplemental oxygen COPD exacerbation - Continue care as per above CHF exacerbation - Diuretics with Lasix 40 mg IV twice daily - Daily weight, I and O, fluid restriction -Echocardiogram for interval change evaluation GI and DVT prophylaxis in place PDMP PDMP Reviewed: Last Reviewed 12/16/24 06:43 by Maria C Dickens MD Attestations Medical Necessity Statement*: Patient with multiple medical issues significant for overt heart failure pneumonia hypoxic hypercapnic respiratory failure requiring BiPAP and requiring increased oxygen demand will need at least 2 midnights for optimization of care. Coding Level of Care Code 19064 Diagnoses Acute hypoxic on chronic hypercapnic respiratory failure J96.01; J96.12 CHF (congestive heart failure) I50.9 COPD with acute exacerbation J44.1 Flash pulmonary edema J81.0 Acute hypercapnic respiratory failure J96.02 Acute on chronic hypoxic respiratory failure J96.21 Sleep apnea G47.30 Mitral valve stenosis I05.0 Hyperlipidemia, unspecified E78.5 Depression with anxiety F41.8 COPD (chronic obstructive pulmonary disease) J44.9 Time Spent (min) 70
[2024-12-16 02:50] LABS: Hematocrit 38.0 % (36-47); Hemoglobin 11.00 g/dL (11.27-16.99); Mean Corpuscular HGB Conc 28.9 g/dL (30-55); Mean Corpuscular Hemoglobin 27.9 pg (27-33); Mean Corpuscular Volume 96.4 fl (85-98); Nucleated Red Blood Cells % 0 %; Platelet Count 211 10^3/cmm (157-399); Red Blood Count 3.94 10^6/uL (3.85-5.65); White Blood Count 8.16 10^3/uL (3.29-11.43)
[2024-12-16 02:54] VITALS: BP 183/84; PULSE 59; RESP 17; O2SAT 92
[2024-12-16 03:11] LABS: Alanine Aminotransferase 30 U/L (0-33); Albumin Level 4.0 g/dL (3.5-5.2); Alkaline Phosphatase 55 U/L (35-105); Anion Gap 16.3 (5-19); Aspartate Amino Transferase 21 U/L (0-32); Blood Urea Nitrogen 39 mg/dL (8-23); Calcium 10.6 mg/dL (8.5-10.5); Carbon Dioxide 35 mmol/L (22-29); Chloride 97 mmol/L (98-107); Globulin 3.0 g/dL (1.3-4.6); Glucose 277 mg/dL (65-115); Magnesium 1.7 mg/dL (1.7-2.3); Osmolality Calculated 315 mOsm/kg (285-295); Potassium 5.3 mmol/L (3.5-5.1); Sodium 143 mmol/L (136-145); Total Protein 7.0 g/dL (6.6-8.7)
[2024-12-16 04:00] VITALS: BP 173/79; PULSE 63; RESP 17; O2SAT 91
[2024-12-16 04:20] VITALS: PULSE 78; RESP 16; O2SAT 91
[2024-12-16] MEDS: heparin 5,000 unit/mL INJ 1 mL 5000 UNIT SUBCUT (05:28)
[2024-12-16] MEDS: FUROsemide 10 mg/mL SDV 4mL 40 MG IVP ×2 (05:28→08:55)
[2024-12-16] MEDS: methylPREDNISolone sod succ 40 mg/mL INJ IVP (05:32)
[2024-12-16] MEDS: cefTRIAXone 1,000 mg SDV 1000 MG IVP (05:32)
--- NOTE | 2024-12-16 06:06 | PC.NURSE ---
late Medications See MAR all medications were late due to Pyxis difficultly. Pt was in Verafin but was unable to find pt in [employer] system, called magno pichardo about issue, issue still not completely solved, house sup ended up overriding all meds for administration. now pt is in Neuronetrixxis but med list is not crossing over into pyxis at this time still unable to solve issue
[2024-12-16 07:54] VITALS: BP 165/83; PULSE 72; RESP 14; TEMP 36.4; O2SAT 90
[2024-12-16 08:21] VITALS: PULSE 82; RESP 23; O2SAT 91
--- NOTE | 2024-12-16 09:19 | PC.PHAR ---
Pt is now a resident at [facility]
[2024-12-16] MEDS: blistex lip oint 7 gm Tube 1 APPLIC TOPICAL (09:22)
[2024-12-16 09:23] VITALS: RESP 22; O2SAT 90
[2024-12-16] MEDS: morphine 4 mg/mL SDV 1 mL IVP ×2 (09:23→13:52)
[2024-12-16 09:31] LABS: NT Pro B Type Natriuretic Pept 1014 pg/mL (0-450); Procalcitonin 0.10 ng/mL (0-0.5)
[2024-12-16 09:48] LABS: Estmated Average Glucose 174; Hemoglobin A1C 7.7 % (4.0-6.0)
[2024-12-16] MEDS: saliva stimulant spray 30 mL Btl 1 SPRAY MUCOUS MEM (11:04)
--- NOTE | 2024-12-16 11:24 | P.DS_ITS ---
Discharge Providers Date of Admission: 12/16/24 02:00 Date of Discharge: December 16, 2024 Attending Provider at Admission: Maria C Dickens MD Attending Provider at Discharge: Ezekiel Villegas MD Primary Care Provider: Savage Pendleton DO Diagnoses at Discharge Discharge Diagnosis 1. Acute hypoxic on chronic hypercapnic respiratory failure: 2. CHF (congestive heart failure): 3. COPD with acute exacerbation: 4. Flash pulmonary edema: 5. Acute hypercapnic respiratory failure: 6. Acute on chronic hypoxic respiratory failure: 7. Sleep apnea: 8. Mitral valve stenosis: 9. Hyperlipidemia, unspecified: 10. Depression with anxiety: 11. COPD (chronic obstructive pulmonary disease): Reason for Visit Reason for Visit: sob Hospital Course Hospital Course This is a 89-year-old female with past medical history of CHF, COPD, obstructive sleep apnea, mitral valve stenosis, hyperlipidemia, depression who presents to [facility] for shortness of breath Patient was admitted to [facility] for acute hypoxic on chronic hypercapnic respiratory failure, secondary to diastolic CHF, secondary to COPD, secondary to multifocal pneumonia, secondary to sepsis. Patient was seen this morning, patient's [id number] at bedside, on 40% BiPAP, in moderate respiratory distress, nasal flaring, intercostal retractions, suprasternal retractions, diffuse wheezing and crackles in all lung [place] respiratory rate 20-30, tachycardic heart rates in the 100s. Patient tells me I want to go home on hospice , she keeps repeating that I want to go home and on hospice. Discussed currently for morbidity or mortality discharge with her acute hypoxic respiratory failure, respiratory distress multifactorial from pneumonia, CHF, COPD. She tells me she wants to come off the BiPAP. She wants to go home to [place], and she wants to at [place]. She tells me she does not want to be in pain she does not want to suffer, she would does not want to feel short of breath. Clarified her CODE STATUS, she does not want to have any aggressive interventions, she wants to be kept comfortable, DNR/DNI. Discussed the morbidity and mortality of her underlying condition, she voiced understanding, all questions answered, agreed to proceed with hospice/comfort care. I had a detailed discussion with her about medical management versus hospice. She voiced understanding, all questions answered, shared decision making, agreed to proceed with hospice/comfort care. Discussed with her that I am worried that her condition will continue to deteriorate, with worsening respiratory failure, but at that point the goal would be to ease her pain and ease her suffering and allow her to pass away comfortably. Discussed hospice, she tells me she is about morphine, and she wants to go on hospice. She was taken off BiPAP, to high flow nasal cannula 15 L, remains in moderate respiratory distress, family numbers at bedside, arranging hospice. I also had a family meeting with patient's daughter, and patient's son who is her DPOA son tells me that she has been talking about hospice for a few months, and she wants to just be kept comfortable, does not want to have aggressive interventions, discussed discharge on hospice, discussed hospice in detail, he voiced understanding, all questions answered, agreed to proceed with her wishes. Will discharge on hospice. Discussed with family I will do my best to honor her her last wish, which is going back to the [place] on hospice/comfort care, will watch her respiratory status closely over the next few hours as I have hospice arranged for her, but there is a high risk of her passing away here in the hospital, I started her on comfort care/hospice while she is here, overall the goals will be to ease her pain and ease her suffering and allow her to be comfortable, and hopefully we can get her to [place] on hospice in the next few hours. Discussed risk and benefits, patient's family, son who is DPOA, voiced understanding, all questions answered, agreed to proceed. Physical Exam Const: COMMON NORMALS: no acute distress and patient oriented x3 Eye: COMMON NORMALS: Equal, round and reactive pupils present PUPIL: Yes Equal, round and reactive pupils present Resp: EFFORT & INSPECTION: Yes abnormal respiratory pattern, Yes tachypneic and Yes respiratory distress AUSCULTATION: crackles and wheezes OTHER: Nasopharynx, intercostal retractions, suprasternal retractions, tachypnea, tachycardia Cardio: COMMON NORMALS: regular rate, regular rhythm, S1 normal heart sound present and S2 normal heart sound present RATE: regular rate RHYTHM: regular rhythm HEART SOUNDS: S1 normal heart sound present and S2 normal heart sound present GI: COMMON NORMALS: Normal to inspection, nondistended, normoactive bowel sounds present and non-tender Extremity: NARRATIVE EXTREMITY EXAM: 1+ edema Neuro: COMMON NORMALS: patient oriented x3 and moves all extremities Discharge Data Studies Completed and Pending Completed Studies During Hospitalization Category Date Time Status CTA chest [CT angio chest PE protcl [id number]] Stat Cat Scan 12/15/24 20:49 Completed XR chest 1V portable [id number] Stat Exams 12/15/24 19:04 Completed Pending at discharge Category Date Time Status Blood Culture Stat Lab 12/15/24 19:19 Results Radiology Impressions Chest X-Ray 12/15/24 19:04 IMPRESSION: Findings of decompensated congestive heart failure pulmonary edema pleural effusions. Chest CTA 12/15/24 20:49 IMPRESSION: No findings present to suggest aneurysm or dissection Findings of decompensated congestive heart failure pulmonary edema pleural effusions pulmonary edema. Multifocal consolidation lung parenchyma atelectasis or pneumonia could be considered correlate and follow-up as indicated. Laboratory Results WBC 8.16 10^3/uL (3.29-11.43) 12/16/24 01:27 RBC 3.94 10^6/uL (3.85-5.65) 12/16/24 01:27 Hgb 11.00 g/dL (11.27-16.99) L 12/16/24 01:27 Hct 38.0 % (36-47) 12/16/24 01:27 MCV 96.4 fl (85-98) 12/16/24 01:27 MCH 27.9 pg (27-33) 12/16/24 01:27 MCHC 28.9 g/dL (30-55) L 12/16/24 01:27 RDW 14.2 % (12.1-15.1) 12/16/24 01:27 Plt Count 211 10^3/cmm (157-399) 12/16/24 01:27 MPV 10.3 fL (7.4-10.4) 12/16/24 01:27 Neut % (Auto) 91.7 % 12/16/24 01:27 Lymph % (Auto) 4.4 % 12/16/24 01:27 Dukes % (Auto) 1.1 % 12/16/24 01:27 Eos % (Auto) 0.5 % 12/16/24 01:27 Baso % (Auto) 0.5 % 12/16/24: Neut # (Auto) 7.48 10^3/uL (1.8-7.7) 12/16/24: Lymph # (Auto) 0.4 10^3/uL (0.8-4.8) L 12/16/24 01:27 Dukes # (Auto) 0.1 10^3/uL (0.2-0.9) L 12/16/24: Eos # (Auto) 0.0 10^3/uL (0.0-0.8) 12/16/24 01: Baso # (Auto) 0.0 10^3/uL (0.0-0.1) 12/16/24: Nucleated RBC % (auto) 0 % 12/16/24: Nucleated RBCs # 0.0 /100WBC 12/16/24: Specimen Type Arterial 12/15/24 19:27 Sample Site Brachial, left 12/15/24 19:27 ABG pH 7.32 (7.35-7.45) L 12/15/24 19:27 ABG pCO2 70.1 mmHg (35-45) H* 12/15/24 19:27 ABG pO2 53.4 mmHg (80.0-100.0) L 12/15/24 19:27 ABG PO2/FiO2 Ratio 133 12/15/24 19:27 ABG HCO3 36.4 mmol/L (22-26) H 12/15/24 19:27 ABG O2 Saturation 87.5 12/15/24 19:27 ABG Base Excess 8.3 mmol/L (-2.0-2.0) H 12/15/24 19:27 Daquan Test Pos 12/15/24 19:27 A-a O2 Gradient 19.4 mmHg (5-10) H 12/15/24 19:27 Hematocrit 33.6 % (37-47) L 12/15/24 19:27 Hgb O2 Saturation 85.7 % (95-100) L 12/15/24 19:27 Carboxyhemoglobin 1.7 %THgb (0.4-20.1) 12/15/24 19:27 Methemoglobin 0.4 % (0.4-1.5) 12/15/24 19:27 Total Hemoglobin 11.0 g/dL (12-16) L 12/15/24 19:27 Sodium 144.0 mmol/L (131-143) H 12/15/24 19:27 Potassium 5.1 mmol/L (3.5-5.0) H 12/15/24 19:27 Glucose 189.0 mg/dL (70-115) H 12/15/24 19:27 Ionized Calcium 1.4 mmol/L (1.1-1.4) 12/15/24 19:27 O2 Delivery Device Nc 12/15/24 19:27 O2 Liters/Min 6.0 % 12/15/24 19:27 FiO2 40.0 % 12/15/24 19:27 Technical Cable Jointer ID [email or web address] 12/15/24 19:27 Sodium 143 mmol/L (136-145) 12/16/24 01:27 Potassium 5.3 mmol/L (3.5-5.1) H 12/16/24 01:27 Chloride 97 mmol/L (98-107) L 12/16/24 01:27 Carbon Dioxide 35 mmol/L (22-29) H 12/16/24 01:27 Anion Gap 16.3 (5-19) 12/16/24 01:27 BUN 39 mg/dL (8-23) H 12/16/24 01:27 Creatinine 1.1 mg/dL (0.5-0.9) H 12/16/24 01:27 GFR Calculation Not Reportable 12/16/24 01:27 Glucose 277 mg/dL (65-115) H 12/16/24 01:27 Estimat Average Glucose 174 12/16/24 01:27 Hemoglobin A1c 7.7 % (4.0-6.0) H 12/16/24 01:27 Calculated Osmolality 315 mOsm/kg (285-295) H 12/16/24 01:27 Lactic Acid 1.0 mmol/L (0.5-2.2) 12/15/24 19:19 Calcium 10.6 mg/dL (8.5-10.5) H 12/16/24 01:27 Phosphorus 3.1 mg/dL (2.5-4.5) 12/16/24 01:27 Magnesium 1.7 mg/dL (1.7-2.3) 12/16/24 01:27 Total Bilirubin 0.6 mg/dL (0.15-1.2) 12/16/24 01:27 AST 21 U/L (0-32) 12/16/24 01:27 ALT 30 U/L (0-33) 12/16/24 01:27 Alkaline Phosphatase 55 U/L (35-105) 12/16/24 01:27 Troponin T Baseline 35 ng/L (0-10) H 12/15/24 19:19 Troponin T 120 Minute 29.81 ng/L (0-10) H 12/15/24 21:50 Delta Troponin T -5.19 ABS# (0-10) L 12/15/24 21:50 C-Reactive Protein 26.0 mg/L (0.0-4.9) H 12/16/24 01:27 NT-Pro-B Natriuret Pep 1014 pg/mL (0-450) H 12/16/24 01:27 Total Protein 7.0 g/dL (6.6-8.7) 12/16/24 01:27 Albumin 4.0 g/dL (3.5-5.2) 12/16/24 01:27 Globulin 3.0 g/dL (1.3-4.6) 12/16/24 01:27 Procalcitonin 0.10 ng/mL (0-0.5) 12/16/24 01:27 Influenza A (PCR) Negative (Negative) 12/15/24 19:20 Influenza Type B (PCR) Negative (Negative) 12/15/24 19:20 RSV (PCR) Negative (Negative) 12/15/24 19:20 SARS-CoV-2 (PCR) Negative (Negative) 12/15/24 19:20 Vitals Last Vital Signs Temp 97.6 F 12/16/24 07:54 Pulse 82 12/16/24 08:21 Resp 22 H 12/16/24 09:23 BP 165/83 12/16/24 07:54 Pulse Ox 90 12/16/24 09:23 O2 Del Method Nasal Cannula 12/16/24 07:54 O2 Flow Rate 6 12/16/24 07:54 FiO2 40 12/16/24 08:21 Discharge Plan Discharge Patient Disposition: Hospice - Medical Facility Condition: Serious Prescriptions: New prednisone 20 mg tablet 20 mg PO BID 5 Days Qty: 10 0RF levofloxacin 750 mg tablet 750 mg PO DAILY 5 Days Qty: 5 0RF Continued atorvastatin 20 mg tablet 20 mg PO QPM citalopram 20 mg tablet 20 mg PO QAM fenofibrate 160 mg tablet 160 mg PO QAM losartan 25 mg tablet 25 mg PO QAM metformin 500 mg tablet 500 mg PO BID carvedilol 6.25 mg tablet 6.25 mg PO BID meloxicam 15 mg tablet 15 mg PO QAM ropinirole 4 mg tablet 4 mg PO BEDTIME neomycin-polymyxin B-dexameth 3.5 mg/g-10,000 unit/g-0.1 % ointment See Rx Instructions .ROUTE .COMPLEX Rx Instructions: APPLY RIBBON TO BOTH EYES DIRECTED TWICE DAILY Incruse Ellipta 62.5 mcg/actuation blister with device 1 inh INHALATION QPM tramadol 50 mg tablet 50 mg PO TID PRN (Reason: pain) pantoprazole [Protonix] 40 mg tablet,delayed release (DR/EC) 40 mg PO QAM tiotropium bromide 18 mcg capsule, w/inhalation device 1 cap inhalation BID Rx Instructions: puncture 1 cap using device; one dose = 2 inhalations budesonide-formoterol [Symbicort] 160-4.5 mcg/actuation HFA aerosol inhaler 1 inh inhalation BID Qty: 10.2 0RF albuterol sulfate 1.25 mg/3 mL solution for nebulization 2.5 mg inhalation Q6H PRN (Reason: shortness of breath or wheezing) Qty: 75 0RF Changed furosemide [Lasix] 40 mg tablet 40 mg PO DAILY Qty: 30 0RF Discontinued glipizide 5 mg Tablet Extended Release 24hr 5 mg PO QAM No Action (DME) spectrum afo with lateral T strap See Rx Instructions .ROUTE .MEDSUPPLY Qty: 1 0RF Rx Instructions: As directed by [facility] (DME) CAM BOOT to right See Rx Instructions .Route .MEDSUPPLY Qty: 1 0RF Rx Instructions: As directed (DME) ASO See Rx Instructions .Route .MEDSUPPLY Qty: 1 0RF Rx Instructions: As directed Referrals: Sonia Alonzo MD [Family Provider, Pulmonology] Savage Pendleton DO [Primary Care Provider, Family Practice] Discharge Diet: Regular Discharge Activity: Resume usual activity Patient Instructions: Opioid Safety, Patient Portal & Nader Instructions Discharge Attestations Time Spent in Discharge Care*: greater than 30 min Quality Metrics Clinical Quality Measures [ No reported AMI, CVA or VTE this stay] Coding Level of Care Code 15672 Total time (in minutes) for Discharge: 45 Diagnoses Acute hypoxic on chronic hypercapnic respiratory failure J96.01; J96.12 CHF (congestive heart failure) I50.9 COPD with acute exacerbation J44.1 Flash pulmonary edema J81.0 Acute hypercapnic respiratory failure J96.02 Acute on chronic hypoxic respiratory failure J96.21 Sleep apnea G47.30 Mitral valve stenosis I05.0 Hyperlipidemia, unspecified E78.5 Depression with anxiety F41.8 COPD (chronic obstructive pulmonary disease) J44.9 Sepsis Event Note Evaluation Current stage of sepsis: sepsis Possible source: pulmonary Focused Exam Vital Signs Temp Pulse Resp BP Pulse Ox O2 Del Method O2 Flow Rate 12/16/24 09:23 22 H 90 12/16/24 08:21 82 91 12/16/24 07:54 97.6 F 72 14 165/83 90 Nasal Cannula 6 12/16/24 04:20 91 BiPAP 12/16/24 04:20 78 91 12/16/24 04:00 63 17 173/79 91 Nasal Cannula 12/16/24 02:54 BiPAP, High Flow Nasal Cannula 12/16/24 02:54 59 L 17 183/84 92 Nasal Cannula 7 12/15/24 23:47 64 18 154/68 91 FiO2 12/16/24 09:23 12/16/24 08:21 40 12/16/24 07:54 12/16/24 04:20 40 12/16/24 04:20 40 12/16/24 04:00 12/16/24 02:54 12/16/24 02:54 12/15/24 23:47 Respiratory exam: Present accessory muscle use, respiratory distress and wheezes Cardiovascular exam: Present tachycardia Peripheral pulse strength: 2+ Slightly Diminished Peripheral pulse location: Pedal Skin exam: normal turgor Date exam was performed: 12/16/24 Time exam was performed: 11:36 Problem List 1. Acute hypoxic on chronic hypercapnic respiratory failure: Status: Acute 2. CHF (congestive heart failure): Status: Acute 3. COPD with acute exacerbation: Status: Acute 4. Flash pulmonary edema: Status: Acute 5. Acute hypercapnic respiratory failure: Status: Acute 6. Acute on chronic hypoxic respiratory failure: Status: Acute 7. Sleep apnea: Status: Acute 8. Mitral valve stenosis: Status: Acute 9. Hyperlipidemia, unspecified: Status: Acute 10. Depression with anxiety: Status: Acute 11. COPD (chronic obstructive pulmonary disease): Status: Acute
--- NOTE | 2024-12-16 12:40 | PC.OT ---
PER DR IN ROUNDS; D/C OT/PT ORDER PATIENT IS RETURNING HOME ON HOSPICE
--- NOTE | 2024-12-16 14:58 | PC.NURSE ---
[facility]
== END 2024-12-16 15:47 | disposition hospice, home (50) | DRG 871 ==
LOC: ER 12-16 02:19 → CSU 12-16 03:00
PROVIDERS: Admitting Provider Internal Medicine; Emergency Provider Emergency Medicine; Family Provider Internal Medicine; PCP Electrodiagnostic Medicine; Visit Provider Family Medicine
DX: A41.9 Sepsis, unspecified organism (principal); I50.31 Acute diastolic (congestive) heart failure; J96.22 Acute and chronic respiratory failure with hypercapnia; J96.21 Acute and chronic respiratory failure with hypoxia; J18.9 Pneumonia, unspecified organism; J44.0 Chronic obstructive pulmonary disease with (acute) lower respiratory infection; J44.1 Chronic obstructive pulmonary disease with (acute) exacerbation; G47.33 Obstructive sleep apnea (adult) (pediatric); I05.0 Rheumatic mitral stenosis; E78.5 Hyperlipidemia, unspecified; F41.8 Other specified anxiety disorders; Z66 Do not resuscitate; I48.91 Unspecified atrial fibrillation; E66.9 Obesity, unspecified; Z68.37 Body mass index [BMI] 37.0-37.9, adult; Z51.5 Encounter for palliative care; Z79.84 Long term (current) use of oral hypoglycemic drugs; Z99.81 Dependence on supplemental oxygen; Z87.891 Personal history of nicotine dependence
CPT/HCPCS: 36415; 36600; 71045; 71275; 80051; 80053; 82330; 82805; 83036; 83605; 83735; 83880; 84100; 84145; 84484; 85025; 86140; 87040; 87637; 93005; 94640; 94660; 96365; 96372; 96375; 99291; J0456; J0696; J1644; J1938; J2020; J2185; J2270; J2919; J7050; J7613; J9999